=== PATIENT | male | born 1950 | race Caucasian/White ===

== ENCOUNTER → 2018-03-27 08:15 | Outpatient (CLI) | payer OTHER, SELFPAY ==
--- NOTE | 2018-03-27 08:15 | DT_ITS ---
This patient was seen during an EMR downtime March 26, 2018 - April 02, 2018. This patient may have a combination of paper and electronic documentation or all paper documentation. All documentation is viewable within the e-chart portion of [employer] for each patient visit.
[2018-04-02 10:17] LABS: Hematocrit 47.5 % (40-54); Hemoglobin 15.9 g/dl (13.0-16.5); Mean Corp Hgb Conc 33.5 g/gl (32-36); Mean Corpuscular Volume 95.6 fL (80-94); Red Blood Count 4.97 M/mm3 (4.6-6.2); White Blood Count 6.7 K/mm3 (4.4-11.0)
[2018-04-02 10:18] LABS: Absolute Lymphocyte Count 1.73 X10^3/ul (0.83-4.51); Absolute Neutrophil Count 3.9 X10^3/uL (2.0-7.7); Basophil# 0.07 X10^3/uL; Basophil% 1.1 % (0-1); Eosinophil# 0.17 X10^3/uL; Eosinophils% 2.6 % (0-5); Lymphocyte # 1.73 X10^3/ul (4.0); Mean Platelet Vol. 10.9 fl (6.2-12.0); Monocyte# 0.74 X10^3/uL; Monocyte% 11.1 % (0-10); Neutrophil # 3.91 X10^3/uL (2.7-7.7); Neutrophil % 58.6 % (47-70); POSITIVE COUNT NO; POSITIVE DIFFERENTIAL NO; POSITIVE MORPHOLOGY NO; Platelet Count 310 K/mm3 (150-450); RBC Distribution Width CV 11.8 % (11.6-14.6); RBC Distribution Width SD 40.6 fl (35.1-43.9)
[2018-04-02 10:19] LABS: BUN 10 mg/dL (7-18); Calcium,Total 8.5 mg/dL (8.5-10.1); Cholesterol 207 mg/dL (200); Creatinine, Serum 0.91 mg/dL (0.70-1.30); EST Glomerular Filtration Rate 88 mL/min (>60); Est Glom Filt Rate - Afr Amer 107 mL/min (>60); Glucose 94 mg/dL (74-106)
[2018-04-02 10:20] LABS: Anion Gap 8 (5-15); Chloride 109 mmol/L (98-107); High Density Lipoprotein 43 mg/dL; Potassium 3.7 mmol/L (3.5-5.1); Sodium Level 144 mmol/L (136-145); T4 Free Direct 0.86 ng/dL (0.76-1.46); Thyroid Stim Hormone (TSH) 1.77 uIU/mL (0.358-3.74); Triglycerides 167 mg/dL; Very Low Density Lipoprotein 33 mg/dL (5-40)
== END ==
PROVIDERS: Family Provider Family Medicine; PCP Family Medicine; Visit Provider Family Medicine
DX: I10 Essential (primary) hypertension (principal); E78.5 Hyperlipidemia, unspecified
CPT/HCPCS: 36415; 80048; 80061; 84439; 84443; 85025

== ENCOUNTER → 2019-08-01 | Outpatient (CLI) | payer MEDICARE, OTHER, SELFPAY ==
--- NOTE | 2019-08-01 16:48 | MRI_ITS ---
STUDY: MRI BRAIN WITH AND WITHOUT CONTRAST REASON FOR EXAM: Male, 68 years old. Double vision for 1 1/2 weeks TECHNIQUE: Standardized multiplanar fat and water weighted pulse sequences were obtained. IV Dotarem 15ML was administered for the contrast portion of the examination. COMPARISON: None. FINDINGS: Normal size of the ventricles and extra-axial spaces for the patient's age. Mild periventricular white matter ischemic changes without mass effect or restricted diffusion.. Chronic ischemic changes within the rom. Normal bilateral basal ganglia. Normal thalami. There is no extra-axial fluid accumulation. Normal flow voids within the major intracranial circulation suggesting patency by spin echo criteria. Normal venous enhancement. There is no enhancing intra-axial or extra-axial abnormality. Normal sella turcica, pituitary gland, infundibular stalk, optic chiasm and hypothalamus. Normal tectal plate and pineal gland. Normal midbrain, and medulla. Normal cerebellum. Normal basal cisterns. Normal bilateral temporal bones. Normal bilateral internal auditory canals. No demonstrated orbital abnormality, within the constraints of a routine brain study. Large mucous retention cyst in left maxillary sinus and mild mucosal thickening in the right maxillary as well as bilateral ethmoid air cells. Normal calvarium and skull base. Normal visualized soft tissue structures. Normal visualized upper cervical spine. MRI/Brain W/WO Contrast IMPRESSION: Mild periventricular white matter ischemic changes and chronic ischemic changes within the rom without evidence for acute infarct. . No abnormal enhancement following contrast injection Electronically Signed: Medardo Dumas MD at 18:29 EDT , Service support ,
[2019-08-01 17:15] LABS: CREATININE FINGERSTICK 0.9 mg/dL (0.70-1.30); EGFR FINGERSTICK > 60.0000 mL/min (>60)
== END | disposition home or self-care (01) ==
LOC: MRI 16:46
PROVIDERS: Family Provider Family Medicine; PCP Family Medicine; Referring Provider Ophthalmology; Visit Provider Ophthalmology
DX: H49.13 Fourth [trochlear] nerve palsy, bilateral (principal)
CPT/HCPCS: 70553; A9575

== ENCOUNTER 2020-12-16 09:00 | Outpatient (RCR) | payer MEDICARE, SELFPAY | END 2020-12-16 23:59 | LOC: IMMUN 09:00 | PROVIDERS: PCP Family Medicine; Visit Provider Family Medicine | DX: Z23 Encounter for immunization (principal) | CPT/HCPCS: 0011A; 0012A ==

== ENCOUNTER 2023-04-28 20:54 | Inpatient (IN) | payer MEDICARE, OTHER, SELFPAY ==
[2023-04-28 20:55] VITALS: BP 233/123; PULSE 96; RESP 18; TEMP 36.4; O2SAT 96; BMI 28.8
[2023-04-28 21:05] VITALS: BP 237/127; PULSE 100; RESP 22; O2SAT 95
--- NOTE | 2023-04-28 21:08 | EKG12_ITS ---
Test Reason : Blood Pressure : / mmHG Vent. Rate : 084 BPM Atrial Rate : 084 BPM P-R Int : 142 ms QRS Dur : 082 ms QT Int : 414 ms P-R-T Axes : 032 010 248 degrees QTc Int : 489 ms Normal sinus rhythm Nonspecific ST and T wave abnormality Prolonged QT Abnormal ECG Confirmed by GEORG[place] NUÑEZ, MELIA ([id number]), development editor ALEJANDRO LAIRD ([id number]) on 05/01/2023 1:19:15 PM Referred By: Confirmed By:REGINALD HO MD
--- NOTE | 2023-04-28 21:08 | CT_ITS ---
STUDY: CT BRAIN WITHOUT CONTRAST REASON FOR EXAM: Male, 72 years old. confusion, HTN RADIATION DOSAGE (If Supplied By Facility): CTDIvol = ( 44.99 ) mGy, DLP = ( 812.98 ) mGycm TECHNIQUE: Transaxial CT imaging of the brain was performed without administration of intravenous contrast material. Individualized dose optimization techniques were used for this CT. COMPARISON: No relevant priors. FINDINGS: Normal soft tissue structures. Normal calvarium. There is mild cerebral atrophy with widening of the extra-axial spaces and ventricular dilatation. There are areas of decreased attenuation within the white matter tracts of the supratentorial brain, consistent with microvascular disease changes. Normal basal ganglia and thalami. Normal brainstem. Normal cerebellum. There is no intracranial hemorrhage. There are no findings of an acute ischemic infarction. Normal visualized paranasal sinuses. CT/Brain/Head without Contrast IMPRESSION: Chronic involutional changes of the brain. Electronically Signed: Sha Mohamud MD at 21:58 EDT ,
--- NOTE | 2023-04-28 21:09 | EX.ED.DYSGE1 ---
HPI History of Present Illness Chief Complaint: Alt LOC Informant: patient Onset/Context/Timing Onset: Today Narrative Narrative: Patient states he woke this morning just not feeling right. He describes it as a generalized weakness feeling. It did not improve throughout the day. He has no focal weakness, pain, or paresthesias. This afternoon he states when he turns his head to his left sometimes he will see double. It does not happen every time. Patient states that he has no medical problems. He presents to triage with a blood pressure of 233/123. He states his blood pressure has not been checked in several years but had been told by doctors in the past it was slightly high in the 140 systolic range. PFSH PFSH Medical History no medical history no medical history Home Medications ascorbic acid (vitamin C) 250 mg tablet (Vitamin C) 04/28/23 [History Last Taken Unknown] Allergy/AdvReac Type Severity Reaction Status Date / Time No Known Allergies Allergy Verified 04/28/23 20:55 Social History Smoking Status: Current every day smoker tobacco type: cigarettes ROS ROS ED Constitutional Constitutional ED: Denies chills or fever(s) Eyes Eyes: Reports change in vision ENT ENT ED: Denies rhinorrhea or sore throat Cardiovascular Cardiovascular: Denies chest pain or palpitations Respiratory/Chest Respiratory/Chest: Denies cough or dyspnea Gastrointestinal Gastrointestinal: Denies abdominal pain, diarrhea, nausea or vomiting Musculoskeletal Musculoskeletal: Reports arthralgias; Denies back pain or neck pain Neurologic Neurologic: Reports weakness; Denies headache(s) or paresthesias Psychiatric Psychiatric: Denies anxiety or depression Allergic/Immunologic Allergic/Immunologic ED: Denies mouth swelling EXAM Physical Exam Const Vital Signs: 04/28/23 20:55 04/28/23 21:05 04/28/23 22:03 Temperature 97.6 F L Temperature Source Temporal Pulse Rate 96 100 81 Respiratory Rate 18 22 H 20 H Blood Pressure 233/123 H 237/127 H 199/107 H Blood Pressure Mean 159 163 137 Pulse Ox 96 95 95 Oxygen Delivery Method Room Air Room Air 04/28/23 22:56 Temperature Temperature Source Pulse Rate 76 Respiratory Rate 14 Blood Pressure 196/112 H Blood Pressure Mean 140 Pulse Ox 96 Oxygen Delivery Method Room Air Positive well nourished and well developed General Appearance ED: well developed HEENT Reports moist mucous membranes Eyes PERRL and EOMs intact bilaterally Neck no lymphadenopathy Chest Wall inspection of chest normal and palpation of chest normal Resp normal respiratory effort and clear to auscultation bilaterally Cardio regular rate and regular rhythm GI normal to inspection, nondistended, normoactive bowel sounds Extremity normal to inspection Neuro oriented x3 and no sensory deficits noted Neuro Narrative: NIH equals 0 at time of my exam. Motor Exam: strength 5/5 throughout Psych mental status grossly normal Skin no rashes or lesions noted MDM MDM MDM Narrative Medical decision making narrative: Patient placed on satellite project site monitor. EKG obtained to evaluate for cardiac arrhythmia/ischemia. Chest x-ray obtained to evaluate for acute lung pathology, cardiac size, or mediastinal abnormality. Labwork obtained to evaluate for leukocytosis, anemia, and electrolyte derangement. CT scan of the head obtained given not feeling normal with significantly elevated blood pressure. Urinalysis obtained to evaluate for infection/hematuria. Given the patient's significant hypertension he was given 10 mg of IV labetalol. Lab Data Attestation: I reviewed the patient's lab results. Labs: Laboratory Results - last 24 hr 04/28/23 04/28/23 21:15 22:15 WBC 7.4 RBC 4.98 Hgb 16.1 Hct 46.4 MCV 93.2 MCH 32.3 H MCHC 34.7 RDW Std Deviation 38.5 RDW Coeff of Traci 11.4 L Plt Count 285 MPV 10.9 Immature Gran % (Auto) 0.500 Neut % (Auto) 61.2 Lymph % (Auto) 26.5 [place] % (Auto) 8.1 Eos % (Auto) 2.6 Baso % (Auto) 1.1 H Absolute Neuts (auto) 4.6 Absolute Lymphs (auto) 1.97 Nucleated RBC % 0 Sodium 141 Potassium 3.6 Chloride 108 H Carbon Dioxide 26.0 Anion Gap 7 BUN 13 Creatinine 1.33 H Estim Creat Clear Calc 47.86 Est GFR (MDRD) Af Amer 68 Est GFR (MDRD) Non-Af 56 L BUN/Creatinine Ratio 9.8 L Glucose 139 H Calcium 8.8 Total Bilirubin 0.40 Direct Bilirubin 0.13 AST 18 ALT 28 Alkaline Phosphatase 89 Troponin I High Sens 29 Total Protein 7.3 Albumin 3.7 Globulin 3.6 Urine Color YELLOW Urine Clarity Sl Cldy Urine pH 6.0 Ur Specific [place] 1.020 Urine Protein 15 H Urine Glucose (UA) Normal Urine Ketones Negative Urine Occult Blood Negative Urine Nitrite Negative Urine Bilirubin Negative Urine Urobilinogen Normal Ur Leukocyte Esterase 100 H Urine RBC 0 SEEN Urine WBC 5-10 SEEN Ur Squamous Epith Cells 0-5 SEEN Urine Bacteria 0 SEEN Urine Mucus 0 SEEN Urine Opiates Screen NEGATIVE Urine Methadone Screen NEGATIVE Ur Barbiturates Screen NEGATIVE Ur Phencyclidine Scrn NEGATIVE Ur Amphetamines Screen NEGATIVE MDMA (Ecstasy) Screen NEGATIVE U Benzodiazepines Scrn NEGATIVE Urine Cocaine Screen NEGATIVE U Cannabinoids Screen NEGATIVE Ur Drug Screen Comment Ethyl Alcohol < 3.0 Radiography Chest X-Ray - ED: 1 View, Read by ED Physician, Normal, Heart, Lungs and Mediastinum Diagnostic Testing: Clinical Impression(s) from Imaging Studies Brain CT 04/28/23 21:08 IMPRESSION: Chronic involutional changes of the brain. Electronically Signed: Sha Mohamud MD at 21:58 EDT Reading Location ID and State: [id number] / [place] [address] , Service support , Chest X-Ray 04/28/23 21:32 IMPRESSION: Normal x-ray examination of the chest. Electronically Signed: Sha Mohamud MD at 22:14 EDT Reading Location ID and State: [id number] / [place] [address] , Service support , EKG Initial EKG: Attestation: I personally reviewed and interpreted this EKG as follows: Interpretation: Sinus Rhythm (Sinus at 84 with no acute ischemia. QTc is 489.) Treatment and Re-Evaluation :: After 10 mg of IV labetalol systolic blood pressure has gone from 233 to 199. CBC was normal white count at 7.4 with a hemoglobin of 16.1. Chemistry studies reveal a BUN of 13 and a creatinine of 1.33. Do not have prior values available for comparison. LFTs are unremarkable. EtOH is less than 3. EKG per mitral rotation reveals no acute ischemia. Chest x-ray per my interpretation is normal. Radiology interpretation is reviewed and agrees. CT scan of the head reveals chronic involutional changes with no acute findings. Urinalysis does reveal 15 protein. Patient has been ordered an additional 10 mg of IV labetalol. I will discuss case with hospitalist regarding admission for hypertensive urgency. Discharge Plan Dx/Rx/DC Orders Clinical Impression: Hypertensive urgency Disposition Disposition: Acute Care Hospital [facility]
[2023-04-28] MEDS: Labetalol (Prefilled) 20 MG/4 ML 10 MG IV ×2 (21:15→22:34)
--- NOTE | 2023-04-28 21:32 | RAD_ITS ---
STUDY: X-RAY CHEST REASON FOR EXAM: Male, 72 years old. cp TECHNIQUE: Single AP portable view of the chest. COMPARISON: None. FINDINGS: The lungs are clear and expanded. There is no demonstrated pleural abnormality. Normal size heart. Normal mediastinum and segun. Normal visualized pulmonary arteries. Normal visualized aortic arch and descending thoracic aorta. Normal visualized thoracic spine. Normal visualized ribs, clavicles, and shoulders. There is no demonstrated abnormality of the visualized soft tissue structures of the upper abdomen. RAD/Chest 1 View (Portable) IMPRESSION: Normal x-ray examination of the chest. Electronically Signed: Sha Mohamud MD at 22:14 EDT ,
[2023-04-28 21:34] LABS: Absolute Lymphocyte Count 1.97 X10^3/uL (0.83-4.51); Absolute Neutrophil Count 4.6 X10^3/uL (2.0-7.7); Basophil# 0.08 X10^3/uL; Basophil% 1.1 % (0-1); Eosinophil# 0.19 X10^3/uL; Eosinophils% 2.6 % (0-5); Hematocrit 46.4 % (40-54); Hemoglobin 16.1 g/dL (13.0-16.5); Lymphocyte # 1.97 X10^3/ul (0.83-4.51); Lymphocyte % 26.5 % (19-41); Mean Corp Hgb Conc 34.7 g/dL (32-36); Mean Corpuscular Hgb 32.3 pg (27.0-32.0); Mean Corpuscular Volume 93.2 fL (80-94); Mean Platelet Vol. 10.9 fl (6.2-12.0); Monocyte% 8.1 % (0-10); NRBC Flagged by Analyzer 0 % (0-5); Neutrophil # 4.55 X10^3/uL (2.7-7.7); Neutrophil % 61.2 % (47-70); Platelet Count 285 K/mm3 (150-450); RBC Distribution Width CV 11.4 % (11.6-14.6); RBC Distribution Width SD 38.5 fl (35.1-43.9); Red Blood Count 4.98 M/mm3 (4.6-6.2); White Blood Count 7.4 K/mm3 (4.4-11.0)
[2023-04-28 21:44] LABS: AST(SGOT) 18 U/L (15-37); Alanine Aminotransfer ALT/SGPT 28 U/L (16-61); Albumin, Serum 3.7 g/dL (3.2-5.0); Alkaline Phosphatase 89 U/L (45-117); Anion Gap 7 (5-15); BUN 13 mg/dL (7-18); BUN/Creat Ratio 9.8 RATIO (10-20); Bilirubin, Direct 0.13 mg/dL (0.00-0.30); Calcium,Total 8.8 mg/dL (8.5-10.1); Chloride 108 mmol/L (98-107); Creatinine, Serum 1.33 mg/dL (0.70-1.30); EST Glomerular Filtration Rate 56 mL/min (>60); Est Glom Filt Rate - Afr Amer 68 mL/min (>60); Estimated Creatinine Clearance 47.86 ml/min; Globulin 3.6 g/dL (2.2-4.2); Glucose 139 mg/dL (74-106); Potassium 3.6 mmol/L (3.5-5.1); Protein, Total 7.3 g/dL (6.4-8.2); Sodium Level 141 mmol/L (136-145); Troponin-I HS 29 pg/mL (3.0-78.0)
[2023-04-28 22:03] VITALS: BP 199/107; PULSE 81; RESP 20; O2SAT 95
[2023-04-28 22:19] LABS: Alcohol, Blood (Medical)-Serum < 3.0 mg/dL
[2023-04-28 22:21] LABS: Bacteria 0 SEEN /hpf (None Seen); Mucous, Urine 0 SEEN /hpf (<or=2+); Red Blood Cells-Urine 0 SEEN /hpf (0-5)
[2023-04-28 22:40] LABS: Amphetamine Urine VISTA NEGATIVE (<1000 ng/mL); Barbiturate Urine VISTA NEGATIVE (< 200 ng/mL); Benzodiazepine Urine VISTA NEGATIVE (< 200 ng/mL); Cocaine Urine VISTA NEGATIVE (< 300 ng/mL); Ecstacy Urine VISTA NEGATIVE (< 500 ng/mL); Methadone Urine VISTA NEGATIVE (< 300 ng/mL); PCP Urine VISTA NEGATIVE (< 25 ng/mL); THC Urine VISTA NEGATIVE (< 50 ng/mL); Vista UDS pH Range 6
[2023-04-28 22:53] LABS: Color, Urine YELLOW (Yellow); Glucose, Dipstick Normal (Normal); Ketone-Dipstick Negative (Negative); Urine Bilirubin Dipstick Negative (Negative); Urine Clarity Sl Cldy (Clear)
[2023-04-28 22:54] LABS: Leukocyte Esterase-Dipstick 100 /ul (Negative); Nitrite-Dipstick Negative (Negative); Occult Blood-Urine Negative /ul (Negative); Protein-Dipstick 15 mg/dl (Negative); Squamous Epithelial Cells - UA 0-5 SEEN /hpf (0-5); Urine Urobilinogen Normal (Normal); White Blood Cells 5-10 SEEN /hpf (0-5)
[2023-04-28 22:56] VITALS: BP 196/112; PULSE 76; RESP 14; O2SAT 96
--- NOTE | 2023-04-28 23:05 | PCM.HP.STD ---
HPI - General General Date of Admission: 04/28/23 Date of Service: 04/28/23 Chief Complaint: Malaise HPI Narrative HONORIO BARKLEY, is a 72 M who does not see a doctor presents emergency department with malaise. Also he feels rundown. Reportedly he had difficulty in comprehension. And when he looks at his left side he has new onset blurry vision. At the emergency department his blood pressure was found to be severely high and he received 2 doses of labetalol IV. His blood pressure continued to remain high. Reportedly in the past he was told that his blood pressure was slightly above normal. [facility] Medical History no medical history no medical history Home Medications ascorbic acid (vitamin C) 250 mg tablet (Vitamin C) 04/28/23 [History Last Taken Unknown] Allergy/AdvReac Type Severity Reaction Status Date / Time No Known Allergies Allergy Verified 04/28/23 20:55 Family History Other Cancer Surgical History Hx of cholecystectomy Social History Smoking Status: Current every day smoker tobacco type: cigarettes ROS ROS Narrative Pertinent positives and pertinent negatives as noted in HPI. All other systems were reviewed and are negative Vital Signs Vital Signs Vital Signs: 04/28/23 20:55 04/28/23 21:05 04/28/23 22:03 Temperature 97.6 F L Temperature Source Temporal Pulse Rate 96 100 81 Respiratory Rate 18 22 H 20 H Blood Pressure 233/123 H 237/127 H 199/107 H Blood Pressure Mean 159 163 137 Pulse Ox 96 95 95 Oxygen Delivery Method Room Air Room Air 04/28/23 22:56 Temperature Temperature Source Pulse Rate 76 Respiratory Rate 14 Blood Pressure 196/112 H Blood Pressure Mean 140 Pulse Ox 96 Oxygen Delivery Method Room Air Weight Weight: 86.137 kg Body Mass Index (BMI) 28.8 Physical Exam Narrative Physical exam: General: Well-nourished, well-developed. Head: Normocephalic, atraumatic, no tenderness Eyes: Vision is grossly intact. EOMI ENT, no trauma, moist mucous membranes, no rhinorrhea Neck: Nontender, No thyromegaly. CVS: Regular rate and rhythm. S1-S2 present. No murmur, gallop or rub. Respiratory : clear to auscultation bilaterally, chest wall nontender Abdomen: Soft, nontender, nondistended, normal bowel sounds, no masses : Deferred Back: Nontender, no CVA tenderness, no midline spinal tenderness, deformities, step-offs Extremities: Nontender full range of motion, no trauma Skin: Normal color, no trauma, abrasions Neuro: Alert, oriented, cranial nerves II through XII grossly intact. Psychiatry: Normal mood. Normal affect. Not depressed. Not anxious. Results Lab / Micro Data 04/28/23 21:15 04/28/23 21:15 Labs: Laboratory Results - last 24 hr 04/28/23 21:15: WBC 7.4, RBC 4.98, Hgb 16.1, Hct 46.4, MCV 93.2, MCH 32.3 H, MCHC 34.7, RDW Std Deviation 38.5, RDW Coeff of Traci 11.4 L, Plt Count 285, MPV 10.9, Immature Gran % (Auto) 0.500, Neut % (Auto) 61.2, Lymph % (Auto) 26.5, [place] % (Auto) 8.1, Eos % (Auto) 2.6, Baso % (Auto) 1.1 H, Absolute Neuts (auto) 4.6, Absolute Lymphs (auto) 1.97, Nucleated RBC % 0, Sodium 141, Potassium 3.6, Chloride 108 H, Carbon Dioxide 26.0, Anion Gap 7, BUN 13, Creatinine 1.33 H, Estim Creat Clear Calc 47.86, Est GFR (MDRD) Af Amer 68, Est GFR (MDRD) Non-Af 56 L, BUN/Creatinine Ratio 9.8 L, Glucose 139 H, Calcium 8.8, Total Bilirubin 0.40, Direct Bilirubin 0.13, AST 18, ALT 28, Alkaline Phosphatase 89, Troponin I High Sens 29, Total Protein 7.3, Albumin 3.7, Globulin 3.6, Ethyl Alcohol < 3.0 04/28/23 22:15: Urine Color YELLOW, Urine Clarity Sl Cldy, Urine pH 6.0, Ur Specific [place] 1.020, Urine Protein 15 H, Urine Glucose (UA) Normal, Urine Ketones Negative, Urine Occult Blood Negative, Urine Nitrite Negative, Urine Bilirubin Negative, Urine Urobilinogen Normal, Ur Leukocyte Esterase 100 H, Urine RBC 0 SEEN, Urine WBC 5-10 SEEN, Ur Squamous Epith Cells 0-5 SEEN, Urine Bacteria 0 SEEN, Urine Mucus 0 SEEN, Urine Opiates Screen NEGATIVE, Urine Methadone Screen NEGATIVE, Ur Barbiturates Screen NEGATIVE, Ur Phencyclidine Scrn NEGATIVE, Ur Amphetamines Screen NEGATIVE, MDMA (Ecstasy) Screen NEGATIVE, U Benzodiazepines Scrn NEGATIVE, Urine Cocaine Screen NEGATIVE, U Cannabinoids Screen NEGATIVE, Ur Drug Screen Comment Radiology Impression Brain CT 04/28/23 21:08 IMPRESSION: Chronic involutional changes of the brain. Electronically Signed: Sha Mohamud MD at 21:58 EDT , Chest X-Ray 04/28/23 21:32 IMPRESSION: Normal x-ray examination of the chest. Electronically Signed: Sha Mohamud MD at 22:14 EDT , Assessment & Plan Assessment/Plan (1) Hypertensive emergency: PLAN: Plan Hypertensive emergency With patient not been able to comprehend and with some blurry vision in the setting of elevated blood pressure with systolic of more than 180 with diagnosis of hypertensive emergency. EKG showed tall QRS which does not meet criteria of LVH. Time spent in the patient's overall evaluation,decision-making process, review of diagnostic data, adjustment of management, discussion with other providers, nursing nursing and ancillary staff involved in patient's care documentation, 42 minutes. Charges/Coding Visit Charges Inpatient E&M: 20532 Init Hosp L2
--- NOTE | 2023-04-28 23:58 | ED.RN ---
2356: Report called to Babs SHARP on ICU.
[2023-04-29] VITALS (30 sets, daily range): BP systolic 137–205; BP diastolic 67–111; PULSE 66–86; RESP 14–23; TEMP 36.2–36.7; O2SAT 92–98; BMI 28.9
[2023-04-29] MEDS: amLODIPine 10 MG Tablet PO (03:34)
[2023-04-29 03:53] LABS: Absolute Lymphocyte Count 2.45 X10^3/uL (0.83-4.51); Absolute Neutrophil Count 4.5 X10^3/uL (2.0-7.7); Basophil# 0.06 X10^3/uL; Basophil% 0.8 % (0-1); Eosinophil# 0.29 X10^3/uL; Eosinophils% 3.6 % (0-5); Hematocrit 44.6 % (40-54); Hemoglobin 15.3 g/dL (13.0-16.5); Lymphocyte # 2.45 X10^3/ul (0.83-4.51); Lymphocyte % 30.7 % (19-41); Mean Corp Hgb Conc 34.3 g/dL (32-36); Mean Corpuscular Hgb 32.6 pg (27.0-32.0); Mean Corpuscular Volume 94.9 fL (80-94); Mean Platelet Vol. 10.8 fl (6.2-12.0); Monocyte# 0.64 X10^3/uL; NRBC Flagged by Analyzer 0 % (0-5); Neutrophil % 56.5 % (47-70); Platelet Count 255 K/mm3 (150-450); RBC Distribution Width CV 11.4 % (11.6-14.6); RBC Distribution Width SD 39.9 fl (35.1-43.9)
[2023-04-29 04:07] LABS: Anion Gap 7 (5-15); BUN 13 mg/dL (7-18); Calcium,Total 8.2 mg/dL (8.5-10.1); Chloride 109 mmol/L (98-107); Creatinine, Serum 1.18 mg/dL (0.70-1.30); EST Glomerular Filtration Rate 64 mL/min (>60); Est Glom Filt Rate - Afr Amer 78 mL/min (>60); Estimated Creatinine Clearance 53.94 ml/min; Glucose 121 mg/dL (74-106); Potassium 3.4 mmol/L (3.5-5.1); Sodium Level 143 mmol/L (136-145)
--- NOTE | 2023-04-29 07:31 | PCM.PN.HOSP ---
Reason for Visit Reason for Visit: Diagnoses Hypertensive emergency (04/28/23) Objective Data Objective Data Vital Signs: Vital Signs Temp Pulse Resp BP Pulse Ox O2 Del Method 97.5 F L 67 16 152/85 H 93 Room Air 04/29/23 04:00 04/29/23 07:00 04/29/23 07:00 04/29/23 07:00 04/29/23 07:00 04/29/23 07:00 Oxygen Delivery Method Room Air Weight: 190 lb 14.725 oz Body Mass Index (BMI) 28.9 Intake & Output: Intake and Output for Last 24 Hours 04/27/23 04/28/23 04/29/23 23:59 23:59 23:59 Intake Total 100.00 / 100.00 Output Total 0 / 0 Balance 100.00 / 100.00 Lab / Micro Data 04/29/23 03:35 04/29/23 03:35 Labs: Laboratory Results - last 24 hr 04/28/23 21:15: WBC 7.4, RBC 4.98, Hgb 16.1, Hct 46.4, MCV 93.2, MCH 32.3 H, MCHC 34.7, RDW Std Deviation 38.5, RDW Coeff of Traci 11.4 L, Plt Count 285, MPV 10.9, Immature Gran % (Auto) 0.500, Neut % (Auto) 61.2, Lymph % (Auto) 26.5, [place] % (Auto) 8.1, Eos % (Auto) 2.6, Baso % (Auto) 1.1 H, Absolute Neuts (auto) 4.6, Absolute Lymphs (auto) 1.97, Nucleated RBC % 0, Sodium 141, Potassium 3.6, Chloride 108 H, Carbon Dioxide 26.0, Anion Gap 7, BUN 13, Creatinine 1.33 H, Estim Creat Clear Calc 47.86, Est GFR (MDRD) Af Amer 68, Est GFR (MDRD) Non-Af 56 L, BUN/Creatinine Ratio 9.8 L, Glucose 139 H, Calcium 8.8, Total Bilirubin 0.40, Direct Bilirubin 0.13, AST 18, ALT 28, Alkaline Phosphatase 89, Troponin I High Sens 29, Total Protein 7.3, Albumin 3.7, Globulin 3.6, Ethyl Alcohol < 3.0 04/28/23 22:15: Urine Color YELLOW, Urine Clarity Sl Cldy, Urine pH 6.0, Ur Specific [place] 1.020, Urine Protein 15 H, Urine Glucose (UA) Normal, Urine Ketones Negative, Urine Occult Blood Negative, Urine Nitrite Negative, Urine Bilirubin Negative, Urine Urobilinogen Normal, Ur Leukocyte Esterase 100 H, Urine RBC 0 SEEN, Urine WBC 5-10 SEEN, Ur Squamous Epith Cells 0-5 SEEN, Urine Bacteria 0 SEEN, Urine Mucus 0 SEEN, Urine Opiates Screen NEGATIVE, Urine Methadone Screen NEGATIVE, Ur Barbiturates Screen NEGATIVE, Ur Phencyclidine Scrn NEGATIVE, Ur Amphetamines Screen NEGATIVE, MDMA (Ecstasy) Screen NEGATIVE, U Benzodiazepines Scrn NEGATIVE, Urine Cocaine Screen NEGATIVE, U Cannabinoids Screen NEGATIVE, Ur Drug Screen Comment 04/29/23 03:35: WBC 8.0, RBC 4.70, Hgb 15.3, Hct 44.6, MCV 94.9 H, MCH 32.6 H, MCHC 34.3, RDW Std Deviation 39.9, RDW Coeff of Traci 11.4 L, Plt Count 255, MPV 10.8, Immature Gran % (Auto) 0.400, Neut % (Auto) 56.5, Lymph % (Auto) 30.7, [place] % (Auto) 8.0, Eos % (Auto) 3.6, Baso % (Auto) 0.8, Absolute Neuts (auto) 4.5, Absolute Lymphs (auto) 2.45, Nucleated RBC % 0, Sodium 143, Potassium 3.4 L, Chloride 109 H, Carbon Dioxide 27.0, Anion Gap 7, BUN 13, Creatinine 1.18, Estim Creat Clear Calc 53.94, Est GFR (MDRD) Af Amer 78, Est GFR (MDRD) Non-Af 64, BUN/Creatinine Ratio 11.0, Glucose 121 H, Calcium 8.2 L Radiography Diagnostic Testing: Radiology Impression Brain CT 04/28/23 21:08 IMPRESSION: Chronic involutional changes of the brain. Electronically Signed: Sha Mohamud MD at 21:58 EDT , Chest X-Ray 04/28/23 21:32 IMPRESSION: Normal x-ray examination of the chest. Electronically Signed: Sha Mohamud MD at 22:14 EDT , Physical Exam Narrative Patient still feeling dizzy on sitting and standing up. No headache. Had blurry vision which resolved. Physical exam: General: Alert, Oriented x3, Cooperative HEENT: Atraumatic, PERRLA, EOMI, Normocephalic Oral: No Gingival or Mucosal Lesions/ Ulcerations Neck: Supple, No JVD, Negative Carotid Bruits Lungs: Air entry diminished in bilateral lung bases. No crepitation/rhonchi Cardiovascular: Regular rate, Regular Rhythm, Normal S1, S2, No murmurs Abdomen: Bowel Sounds Present, Soft, Non Tender, Non-Distended : No renal angle tenderness. No suprapubic tenderness. Extremities: No edema, Capillary Refill Less than 3 Seconds Skin: No rashes, No breakdown Musculoskeletal: No Tenderness to Palpation of Joints or Extremities Neurological: Cranial nerves II-XII grossly intact, DTR 2+/4. NIH stroke scale 0. Psych/Mental Status: Normal Affect, Appropriate. Assessment & Plan Assessment/Plan (1) Hypertensive emergency: PLAN: Plan 72-year-old female was admitted with malaise, fatigue, difficulty in comprehension, new onset blurry vision on looking left side. BP was found very high, 233/123, 237/127 and had 2 doses of labetalol IV. Hypertensive emergency With patient not been able to comprehend and with some blurry vision in the setting of elevated blood pressure with systolic of more than 180 with diagnosis of hypertensive emergency. EKG showed tall QRS which does not meet criteria of LVH. Patient was nicardipine drip. 2D echo is ordered. Recommended MRI brain which is not emergent and can be done as an outpatient. Patient had blurry vision, difficulty in comprehension. Does not have history of a stroke or MA. Mild hypokalemia, Potassium replaced. DVT prophylaxis on Lovenox. Sodium 143, Potassium 3.4 L, Chloride 109 H, Carbon Dioxide 27.0, Anion Gap 7, BUN 13, Creatinine 1.18, Estim Creat Clear Calc 53.94, Est GFR (MDRD) Af Amer 78, Est GFR (MDRD) Non-Af 64, BUN/Creatinine Ratio 11.0, Glucose 121 H, Calcium 8.2 L Charges/Coding Visit Charges Inpatient E&M: 93668 Subs Hosp L3
[2023-04-29] MEDS: Potassium Chloride Oral Tablet 20 MEQ 40 MEQ PO (09:26)
[2023-04-29] MEDS: Enoxaparin 40 MG/0.4 ML Syringe SC (09:28)
--- NOTE | 2023-04-29 09:57 | ECHOD_ITS ---
Reason For Study: HTN Procedure This was a 2D Doppler, Color Flow transthoracic echocardiogram. Myocardial strain analysis was performed in this exam to aid in the assessment of cardiac function. Exam performed portable in ICU/CCU. Left Ventricle Normal LV size. The estimated ejection fraction is 65 %. No evidence for diastolic dysfunction. No regional wall motion abnormalities noted. Right Ventricle Normal RV size. Normal systolic function. Atria Normal left atrium. Normal right atrium. No doppler evidence for ASD. Mitral Valve There is no mitral valve stenosis. Trivial mitral valve insufficiency. Tricuspid Valve There is no tricuspid stenosis. Unable to estimate RV systolic pressure due to insufficient tricuspid regurgitant envelope. Trivial tricuspid valve insufficiency. Aortic Valve Trisinus/trileaflet aortic valve. Aortic sclerosis, no stenosis. There is no aortic stenosis. No aortic valve insufficiency. Pulmonic Valve There is no pulmonic valvular stenosis. No pulmonic valve insufficiency. Great Vessels Normal aortic root. Pericardium/Pleural No pericardial effusion. MMode/2D Measurements & Calculations LVIDd: 4.4 cm IVSd: 1.6 cm Ao root diam: 3.1 cm LVIDs: 3.5 cm LVPWd: 1.7 cm RVDd: 2.6 cm FS: 19.9 % LAV(MOD-bp): 35.1 ml LVAd ap4: 26.0 cm2 SV(MOD-sp4): 38.0 ml LAV(MOD-bp) Indexed: 18.0 ml/m2 LVLd ap4: 8.1 cm LAV(MOD-sp2): 42.8 ml EDV(MOD-sp4): 69.3 ml LAV(MOD-sp4): 27.3 ml EDV(sp4-el): 70.5 ml LVAs ap4: 15.9 cm2 LVLs ap4: 7.6 cm ESV(MOD-sp4): 31.3 ml ESV(sp4-el): 28.3 ml EF(MOD-sp4): 54.8 % EF(sp4-el): 59.8 % SV(sp4-el): 42.2 ml LA A4 area: 14.3 cm2 LA dimension(2D): 4.4 cm RA A4 area: 12.1 cm2 TAPSE: 2.3 cm Time Measurements MV dec time: 0.37 sec Doppler Measurements & Calculations MV E max yann: 60.1 cm/sec Lat Peak E' Yann: 6.1 cm/sec Med Peak E' Yann: 4.0 cm/sec MV A max yann: 85.7 cm/sec E/E' lat: 9.9 E/E' med: 15.0 MV E/A: 0.70 Ao V2 max: 141.6 cm/sec LV V1 max: 101.6 cm/sec MV dec slope: 164.5 cm/sec2 Ao max P.0 mmHg LV V1 max P.1 mmHg Ao V2 mean: 98.8 cm/sec LV V1 mean P.3 mmHg Ao mean P.5 mmHg LV V1 mean: 70.1 cm/sec Ao V2 VTI: 28.0 cm LV V1 VTI: 20.1 cm AV (velocity ratio): 0.72 PA V2 max: 103.6 cm/sec ECHO/Echo Complete Interpretation Summary The estimated ejection fraction is 65 %. No evidence for diastolic dysfunction. Trivial mitral valve insufficiency. Aortic sclerosis, no stenosis. Ordering Physician: Adebayo Sanchez Performed By: Elvira Morley, JACLYN, RVT
[2023-04-29] MEDS: Lisinopril 10 MG Tablet PO (14:09)
[2023-04-29] MEDS: hydroCHLOROthiazide 12.5mg 12.5 MG PO (17:39)
--- NOTE | 2023-04-29 17:45 | CASEMGMT ---
ARON AWAD MACHINE SH[employer] HELPER CM to room to meet with patient for initial transition planning/care coordination assessment. ARON AWAD introduced self and role at [facility].? Pt voices understanding and consents to assessment at this time.? Pt resting in bed in no distress at this time.? Pt is A/O at this time and answers all questions appropriately.?? Care providers, pharmacy, and demographics verified/updated at this time. PCP: Dr Dickerson @ [facility]. Has upcoming appt May 23 Specialists: none Preferred Pharmacy: [facility] Insurance: MCR, MMO Prescription Benefit:? Pt does not think he has any Rx benefits. Living Will/HPOA:? Has LW and HCPOA, who is his sister, Pratibha LNOK: Sister/POAPratibha Living Arrangements: Lives alone in one-story condo w/1 step to enter. Independent w/ADL's and IADL's. Transportation: Pt states drives self and states no transportation concerns at this time.? DME: ? Denies using any DME and denies needs.? HHC/SNF: No hx of either, denies needs, and no needs identified. Pt wishes to return home and states has no concerns with going home at time of discharge.? CM to follow for any discharge planning/needs.? Pt voices no concerns/needs at this time.? Advised pt to ask for CM if any questions/concerns/needs arise.? Voices understanding. PLAN: ?Home Art FLANNERY RN, CM
[2023-04-29] MEDS: 0.9% Saline Lock 10 ML Syringe IV (21:30)
[2023-04-29] MEDS: Labetalol (Prefilled) 20 MG/4 ML IV (21:31)
[2023-04-29] MEDS: Calcium Carbonate 500 MG Tablet PO (22:26)
[2023-04-30 03:30] VITALS: BP 187/99; PULSE 76; RESP 16; TEMP 36.8; O2SAT 96
[2023-04-30 03:53] VITALS: BMI 28.5
[2023-04-30 05:30] VITALS: BP 167/101; PULSE 68; RESP 16; TEMP 36.9; O2SAT 98
[2023-04-30 07:26] LABS: Anion Gap 5 (5-15); BUN 14 mg/dL (7-18); BUN/Creat Ratio 10.4 RATIO (10-20); Chloride 109 mmol/L (98-107); Creatinine, Serum 1.35 mg/dL (0.70-1.30); EST Glomerular Filtration Rate 55 mL/min (>60); Est Glom Filt Rate - Afr Amer 67 mL/min (>60); Estimated Creatinine Clearance 47.15 ml/min; Glucose 100 mg/dL (74-106); Magnesium 2.4 mg/dL (1.6-2.6); Potassium 3.5 mmol/L (3.5-5.1); Sodium Level 139 mmol/L (136-145)
--- NOTE | 2023-04-30 08:03 | DCINST_ITS ---
Discharge Instructions Follow Up Care Test Results: Test results from this visit will be discussed in further detail at your follow- up appointment, if applicable. Discharge Plan Admission Admit Date/Time: 04/28/23 23:08 Primary Reason for Your Visit: Hypertension emergency Attending Provider: Adebayo Sanchez Primary Care Provider: Janell Dickerson Consulting Providers: Giovanny Ross Discharge Orders/Prescriptions Prescriptions: New lisinopril 20 mg Tablet 20 mg PO BID 30 Days Qty: 60 2RF potassium chloride [Klor-Con M20] 20 mEq Tablet,Er Particles/Crystals 20 meq PO DAILYCM 30 Days Qty: 30 0RF amlodipine 10 mg Tablet 10 mg PO DAILY 30 Days Qty: 30 2RF nicotine 21 mg/24 hr Patch 24 Hour 21 mg transdermal DAILY 30 Days Qty: 30 0RF hydrochlorothiazide 25 mg Tablet 25 mg PO DAILY 30 Days Qty: 30 2RF Continued ascorbic acid (vitamin C) [Vitamin C] 250 mg tablet Referrals / Follow Up: Janell Dickerson MD [Primary Care Provider] - Within 1 Week Sen Baker MD [Non-Staff] - Disposition Disposition (needs filled in before D/C Order can be placed): Home, Self Care
[2023-04-30 08:54] VITALS: BP 186/100; PULSE 74; RESP 14; TEMP 36.7; O2SAT 94
[2023-04-30] MEDS: hydroCHLOROthiazide 25 MG Tablet PO (08:58)
[2023-04-30] MEDS: Lisinopril 20 MG Tablet PO (08:58)
[2023-04-30] MEDS: Potassium Chloride Oral Tablet 20 MEQ 40 MEQ PO (08:59)
[2023-04-30] MEDS: amLODIPine 10 MG Tablet PO (09:00)
[2023-04-30] MEDS: Enoxaparin 40 MG/0.4 ML Syringe SC (09:00)
[2023-04-30 09:18] VITALS: BP 183/89; PULSE 75; RESP 16; TEMP 36.7; O2SAT 95
--- NOTE | 2023-04-30 09:18 | PCM.DC.SUM ---
Providers Date of Admission: 04/28/23 Primary Care Physician: Dr. Janell Dickerson MD Reason For Visit: HYPERTENSIVE URGENCY Diagnosis Discharge Diagnosis (1) Hypertensive emergency: Status: Acute Code(s): I16.1 - Hypertensive emergency Plan 72-year-old female was admitted with malaise, fatigue, difficulty in comprehension, new onset blurry vision on looking left side. BP was found very high, 233/123, 237/127 and had 2 doses of labetalol IV. Hypertensive emergency With patient not been able to comprehend and with some blurry vision in the setting of elevated blood pressure with systolic of more than 180 with diagnosis of hypertensive emergency. EKG showed tall QRS which does not meet criteria of LVH. Patient was nicardipine drip. 04/30: Echo was done reported EF 65% with no evidence of diastolic dysfunction. No RWMA. Trivial mitral insufficiency. No aortic stenosis. Recommended MRI brain which is not emergent and can be done as an outpatient. Patient had blurry vision, difficulty in comprehension. Does not have history of a stroke or CT. Patient on 3 maximum dose of antihypertensive medications HCTZ, lisinopril and amlodipine. Patient blood pressure is still high even on 3 antihypertensive medications therefore hydralazine 50 mg 3 times daily added. Prescription of all antihypertensive medications given. Mild hypokalemia, Potassium replaced. DVT prophylaxis on Lovenox. Prescriptions for lisinopril 20 mg twice daily, HCTZ 25 mg daily, amlodipine 10 mg daily, hydralazine and potassium supplement given. Advised home BP monitoring daily before breakfast and follow with PCP in 1 week. Discharge medication reconciliation done. Discharge follow-up instructions completed. Discharge process discussed with the patient and all questions were answered to patient's satisfaction. Total time spent, exact 35 minutes on discharge meds reconciliation, examination, coordination of care with nurses and ancillary staff, review of imaging and blood test and discussion with the patient on follow-up instructions. Laboratory Results 04/30/23 06:05: Sodium 139, Potassium 3.5, Chloride 109 H, Carbon Dioxide 25.0, Anion Gap 5, BUN 14, Creatinine 1.35 H, Estim Creat Clear Calc 47.15, Est GFR (MDRD) Af Amer 67, Est GFR (MDRD) Non-Af 55 L, BUN/Creatinine Ratio 10.4, Glucose 100, Calcium 9.0, Phosphorus 3.0, Magnesium 2.4 Medications at Discharge Home Medications ascorbic acid (vitamin C) 250 mg tablet (Vitamin C) 04/28/23 amlodipine 10 mg tablet 10 mg PO DAILY 30 days #30 tabs 04/30/23 hydralazine 50 mg tablet 50 mg PO TID 30 days #90 tabs 04/30/23 hydrochlorothiazide 25 mg tablet 25 mg PO DAILY 30 days #30 tabs 04/30/23 lisinopril 20 mg tablet 20 mg PO BID 30 days #60 tabs 04/30/23 nicotine 21 mg/24 hr daily transdermal patch 21 mg transdermal DAILY 30 days #30 ea 04/30/23 potassium chloride 20 mEq tablet,extended release(part/cryst) (Klor-Con M) 20 meq PO DAILYCM 30 days #30 tabs 04/30/23 Physical Exam Narrative No acute symptoms. Dizziness has resolved. No chest pain or shortness of breath. Physical exam: General: Alert, Oriented x3, Cooperative HEENT: Atraumatic, PERRLA, EOMI, Normocephalic Oral: No Gingival or Mucosal Lesions/ Ulcerations Neck: Supple, No JVD, Negative Carotid Bruits Lungs: Air entry diminished in bilateral lung bases. No crepitation/rhonchi Cardiovascular: Regular rate, Regular Rhythm, Normal S1, S2, No murmurs Abdomen: Bowel Sounds Present, Soft, Non Tender, Non-Distended : No renal angle tenderness. No suprapubic tenderness. Extremities: No edema, Capillary Refill Less than 3 Seconds Skin: No rashes, No breakdown Musculoskeletal: No Tenderness to Palpation of Joints or Extremities Neurological: Cranial nerves II-XII grossly intact, DTR 2+/4. NIH stroke scale 0. Psych/Mental Status: Normal Affect, Appropriate. Weight / BMI Weight Weight: 187 lb 13.341 oz Body Mass Index (BMI) 28.5 ABG / Lab / Microbiology Data 04/29/23 03:35 04/30/23 06:05 Laboratory: Laboratory Results - last 24 hr 04/30/23 06:05: Sodium 139, Potassium 3.5, Chloride 109 H, Carbon Dioxide 25.0, Anion Gap 5, BUN 14, Creatinine 1.35 H, Estim Creat Clear Calc 47.15, Est GFR (MDRD) Af Amer 67, Est GFR (MDRD) Non-Af 55 L, BUN/Creatinine Ratio 10.4, Glucose 100, Calcium 9.0, Phosphorus 3.0, Magnesium 2.4 Radiography Diagnostic Testing: Radiology Impression Echocardiogram 04/29/23 09:57 Interpretation Summary The estimated ejection fraction is 65 %. No evidence for diastolic dysfunction. Trivial mitral valve insufficiency. Aortic sclerosis, no stenosis. Ordering Physician: Adebayo Sanchez Performed By: Elvira Morley RDCS, RVT Meaningful Use Info Meaningful Use Diagnoses (Choose all that apply): None applicable Discharge Plan Admission Admit Date/Time: 04/28/23 23:08 Primary Reason for Your Visit: Hypertension emergency Attending Provider: Adebayo Sanchez Primary Care Provider: Janell Dickerson Consulting Providers: Giovanny Ross Discharge Orders/Prescriptions Prescriptions: New lisinopril 20 mg Tablet 20 mg PO BID 30 Days Qty: 60 2RF potassium chloride [Klor-Con M20] 20 mEq Tablet,Er Particles/Crystals 20 meq PO DAILYCM 30 Days Qty: 30 0RF amlodipine 10 mg Tablet 10 mg PO DAILY 30 Days Qty: 30 2RF nicotine 21 mg/24 hr Patch 24 Hour 21 mg transdermal DAILY 30 Days Qty: 30 0RF hydrochlorothiazide 25 mg Tablet 25 mg PO DAILY 30 Days Qty: 30 2RF hydralazine 50 mg tablet 50 mg PO TID 30 Days Qty: 90 0RF Rx Instructions: Hold for SBP less than 130 mmHg Continued ascorbic acid (vitamin C) [Vitamin C] 250 mg tablet Referrals / Follow Up: Janell Dickerson MD [Primary Care Provider] - Within 1 Week Sen Baker MD [Non-Staff] - Disposition Disposition (needs filled in before D/C Order can be placed): Home, Self Care Charges/Coding Visit Charges Inpatient E&M: 79880 Disch Hosp >30min
[2023-04-30 12:10] VITALS: BP 180/79; PULSE 75
[2023-04-30] MEDS: hydrALAZINE 50 MG Tablet PO (12:10)
== END 2023-04-30 12:16 | disposition home or self-care (01) | DRG 305 ==
LOC: ED 23:14 → ICU 23:24 → PCU 04-29 16:45
PROVIDERS: Admitting Provider Hospitalist; Emergency Provider Emergency Medicine; PCP Family Medicine; Visit Provider Internal Medicine
DX: I16.1 Hypertensive emergency (principal); E87.6 Hypokalemia; I10 Essential (primary) hypertension; F17.210 Nicotine dependence, cigarettes, uncomplicated
CPT/HCPCS: 36415; 70450; 71045; 80048; 80076; 80307; 81001; 82077; 83735; 84100; 84484; 85025; 93005; 93306; 99284; 99406; J7050; Q9957; A4216

== ENCOUNTER → 2023-05-24 | Outpatient (CLI) | payer MEDICARE, OTHER, SELFPAY ==
--- NOTE | 2023-05-24 16:00 | RAD_ITS ---
EXAM: XR LEFT KNEE COMPLETE, 4 OR MORE VIEWS CLINICAL INDICATION: PAIN TECHNIQUE: Four or more views of the left knee. COMPARISON: February 24, 2015. FINDINGS: BONES/JOINTS: Marked medial joint compartment narrowing and mild widening of the lateral joint compartment. Mild periarticular osteophytes at the medial tibial plateau the frontal view. Subtle cystic focus in the subarticular bone at the lateral aspect of the lateral to tibial plateau measuring roughly 1.6 cm similar to 2015. No convincing suprapatellar joint effusion, trace if any fluid. Mild posterior-superior osteophytes at the patella margin. No acute fracture. No subluxation. Normal alignment. No sclerotic or destructive changes observed. SOFT TISSUES: Unremarkable. No soft tissue swelling or gas. No radiopaque foreign body. VASCULATURE: Moderate arterial calcification of the SFA and popliteal artery. RAD/Knee 4 or More Views IMPRESSION: 1. Significantly worsened marked medial joint compartment narrowing and slight increased periarticular osteophytes medially compared to 2015. 2. Significantly increased visible arterial calcifications. Electronically Signed: Khadra Cote MD at 8:55 EDT ,
[2023-05-24 16:55] LABS: Absolute Lymphocyte Count 2.02 X10^3/uL (0.83-4.51); Basophil% 1.1 % (0-1); Eosinophils% 2.2 % (0-5); Hematocrit 44.4 % (40-54); Hemoglobin 15.5 g/dL (13.0-16.5); Lymphocyte # 2.02 X10^3/ul (0.83-4.51); Lymphocyte % 22.1 % (19-41); Mean Corp Hgb Conc 34.9 g/dL (32-36); Mean Corpuscular Hgb 32.5 pg (27.0-32.0); Mean Corpuscular Volume 93.1 fL (80-94); Mean Platelet Vol. 10.5 fl (6.2-12.0); Monocyte# 0.78 X10^3/uL; Monocyte% 8.5 % (0-10); NRBC Flagged by Analyzer 0 % (0-5); Neutrophil # 5.99 X10^3/uL (2.7-7.7); Neutrophil % 65.4 % (47-70); Platelet Count 367 K/mm3 (150-450); RBC Distribution Width SD 37.4 fl (35.1-43.9); Red Blood Count 4.77 M/mm3 (4.6-6.2); White Blood Count 9.2 K/mm3 (4.4-11.0)
[2023-05-24 17:21] LABS: Vitamin B12 587 pg/mL (211-911)
[2023-05-24 17:24] LABS: Hemoglobin A1c 5.8 % (3.8-5.6)
[2023-05-24 18:10] LABS: ALB/GLOB Ratio 1.1 RATIO (0.9-2.4); AST(SGOT) 15 U/L (15-37); Alanine Aminotransfer ALT/SGPT 34 U/L (16-61); Albumin, Serum 3.7 g/dL (3.2-5.0); Alkaline Phosphatase 81 U/L (45-117); Anion Gap 6 (5-15); BUN 26 mg/dL (7-18); BUN/Creat Ratio 18.6 RATIO (10-20); Calcium,Total 9.5 mg/dL (8.5-10.1); Chloride 106 mmol/L (98-107); Cholesterol 204 mg/dL (200); EST Glomerular Filtration Rate 53 mL/min (>60); Est Glom Filt Rate - Afr Amer 64 mL/min (>60); Free T3 2.5 pg/mL (2.18-3.98); Globulin 3.4 g/dL (2.2-4.2); Glucose 135 mg/dL (74-106); High Density Lipoprotein 39 mg/dL; Protein, Total 7.1 g/dL (6.4-8.2); Sodium Level 138 mmol/L (136-145); Thyroid Stim Hormone (TSH) 1.89 uIU/mL (0.358-3.74); Triglycerides 308 mg/dL; Very Low Density Lipoprotein 62 mg/dL (5-40)
== END | disposition home or self-care (01) ==
PROVIDERS: PCP Family Medicine; Visit Provider Family Medicine
DX: E78.5 Hyperlipidemia, unspecified (principal); R73.09 Other abnormal glucose; Z51.81 Encounter for therapeutic drug level monitoring; G93.40 Encephalopathy, unspecified
CPT/HCPCS: 36415; 73564; 80053; 80061; 82140; 82607; 82746; 83036; 84439; 84443; 84481; 85025

== ENCOUNTER → 2023-10-03 | Outpatient (CLI) | payer MEDICARE, OTHER, SELFPAY ==
--- NOTE | 2023-10-03 13:47 | RAD_ITS ---
STUDY: X-RAY - LUMBAR SPINE REASON FOR EXAM: Male, 72 years old. Back and hip pain. TECHNIQUE: 4 view(s) of the lumbar spine were obtained on 5 images. COMPARISON: October 10, 2013. FINDINGS: Osteopenia. Normal lumbar lordosis. No scoliosis. 9 mm of anterolisthesis of L4 on L5, slightly progressed since the prior study. Diffuse moderate lower thoracic and lumbosacral spondylosis. Diffuse intervertebral disc space narrowing with osteophytes most marked in the lower thoracic region and at L3-4, L4-5 and to the greatest degree L5-S1, all slightly progressed since the comparison study. Vascular calcifications. Cholecystectomy clips. RAD/L/S Spine Min 4 Views IMPRESSION: Osteopenia with progression of lower thoracic and lumbosacral spondylosis as described. No acute abnormality. Electronically Signed: Mario Grimes MD at 14:46 EST ,
--- NOTE | 2023-10-03 13:47 | RAD_ITS ---
STUDY: X-RAY - PELVIS AND BILATERAL HIPS REASON FOR EXAM: Male, 72 years old. Back and hip pain. TECHNIQUE: AP view of the pelvis.? 2 views of the right hip, and 2 views of the left hip were obtained. COMPARISON: None. FINDINGS: There is a non-specific bowel gas pattern. Phleboliths. Osteopenia. Normal bilateral iliac wings, sacroiliac joints and visualized sacrum. Normal bilateral superior and inferior pubic rami. Normal pubic symphysis. Normal bilateral ischial tuberosities. Mild arthrosis of both hips. RAD/Hips B/L min 2 views w/ Pelvis IMPRESSION: Osteopenia with mild arthrosis of both hips. No other abnormality. Electronically Signed: Mario Grimes MD at 14:40 EST ,
--- NOTE | 2023-10-03 14:00 | RAD_ITS ---
STUDY: X-RAY - THORACIC SPINE REASON FOR EXAM: Male, 72 years old. No acute hip pain. TECHNIQUE: 2 view(s) of the thoracic spine were obtained on 4 images. COMPARISON: None. FINDINGS: Osteopenia. Normal kyphosis of the thoracic spine. No substantial scoliosis. Diffuse mild intervertebral disc space narrowing with osteophytes. Normal soft tissues. RAD/Thoracic Spine 2 Views IMPRESSION: Osteopenia with diffuse mild thoracic spondylosis. Electronically Signed: Mario Grimes MD at 14:48 EST ,
== END | disposition home or self-care (01) ==
LOC: RAD 13:40
PROVIDERS: PCP Family Medicine; Referring Provider Family Medicine; Visit Provider Family Medicine
DX: M54.9 Dorsalgia, unspecified (principal); M25.551 Pain in right hip; M25.552 Pain in left hip
CPT/HCPCS: 72070; 72110; 73521

== ENCOUNTER → 2023-10-04 | Outpatient (CLI) | payer MEDICARE, OTHER, SELFPAY ==
[2023-10-04 10:17] LABS: Microalbumin,Random Urine 10.8 mg/L (NO RANGE EST.); Microalbumin:Creatinine Ratio 7.7 mg/g CRE (<30 mg/g CRE)
[2023-10-04 12:01] LABS: ALB/GLOB Ratio 1.1 RATIO (0.9-2.4); AST(SGOT) 20 U/L (15-37); Alanine Aminotransfer ALT/SGPT 36 U/L (16-61); Albumin, Serum 3.9 g/dL (3.2-5.0); Alkaline Phosphatase 90 U/L (45-117); Anion Gap 8 (5-15); BUN 25 mg/dL (7-18); BUN/Creat Ratio 16.4 RATIO (10-20); Calcium,Total 9.1 mg/dL (8.5-10.1); Chloride 108 mmol/L (98-107); Cholesterol 246 mg/dL (200); Creatinine, Serum 1.52 mg/dL (0.70-1.30); EST Glomerular Filtration Rate 48 mL/min (>60); Est Glom Filt Rate - Afr Amer 58 mL/min (>60); Globulin 3.4 g/dL (2.2-4.2); Glucose 126 mg/dL (74-106); High Density Lipoprotein 42 mg/dL; Potassium 4.2 mmol/L (3.5-5.1); Protein, Total 7.3 g/dL (6.4-8.2); Sodium Level 141 mmol/L (136-145); Triglycerides 247 mg/dL; Very Low Density Lipoprotein 49 mg/dL (5-40)
== END | disposition home or self-care (01) ==
LOC: LAB 08:48
PROVIDERS: PCP Family Medicine; Referring Provider Family Medicine; Visit Provider Family Medicine
DX: I12.9 Hypertensive chronic kidney disease with stage 1 through stage 4 chronic kidney disease, or unspecified chronic kidney disease (principal); N18.31 Chronic kidney disease, stage 3a; E78.5 Hyperlipidemia, unspecified; Z51.81 Encounter for therapeutic drug level monitoring
CPT/HCPCS: 36415; 80053; 80061; 82043; 82570

== ENCOUNTER → 2024-02-28 | Outpatient (CLI) | payer MEDICARE, OTHER, SELFPAY | END | disposition home or self-care (01) | PROVIDERS: PCP Nurse Practitioner Family; Referring Provider Nurse Practitioner Family; Visit Provider Nurse Practitioner Family | DX: R19.7 Diarrhea, unspecified (principal) | CPT/HCPCS: 83630; 87177; 87209; 87493 ==

== ENCOUNTER 2024-03-21 13:46 | Emergency (ER) | payer MEDICARE, OTHER, SELFPAY ==
[2024-03-21 13:47] VITALS: BP 125/81; PULSE 78; RESP 18; TEMP 36.9; O2SAT 100; BMI 27.1
[2024-03-21 13:50] VITALS: BP 125/81; PULSE 78; RESP 18; TEMP 36.9; O2SAT 100
--- NOTE | 2024-03-21 14:24 | CT_ITS ---
STUDY: CT ABDOMEN AND PELVIS WITH CONTRAST REASON FOR EXAM: Male, 73 years old. 4 week history of diarrhea. RADIATION DOSAGE (If Supplied By Facility): CTDIvol = ( 16.65 ) mGy, DLP = ( 986.13 ) mGycm TECHNIQUE: Transaxial images were obtained from the dome of the diaphragm to the symphysis pubis without oral contrast. IV 100mL Isovue-300 was administered. Sagittal and coronal images were reconstructed. Individualized dose optimization techniques were used for this CT. COMPARISON: None. FINDINGS: The visualized lung bases are unremarkable. The visualized portions of the heart are within normal limits. Normal liver. There are surgical clips in the gallbladder fossa consistent with a prior cholecystectomy. Normal spleen. Normal pancreas. Normal bilateral adrenal glands. Normal right kidney. Normal left kidney. There is a small hiatal hernia. Normal small intestine. There is diffuse wall thickening of the sigmoid colon and rectum. Colitis should be ruled out. There is also evidence of thickening of the cecum. The appendix is visualized and appears normal. Normal abdominal aorta. Normal inferior vena cava. Normal retroperitoneum. Normal urinary bladder. There is heterogeneous enlargement of the prostate. The prostate measures 4.7 cm x 5.8 cm. There is a left-sided inguinal hernia containing adipose tissue. There are diffuse degenerative changes of the visualized lumbar spine. CT/Abdomen/Pelvis W IV Cont ONLY IMPRESSION: Findings suggestive of colitis of the rectosigmoid colon as well as the cecum. There is also evidence of sigmoid diverticulosis. Electronically Signed: Ba Jara MD at 15:23 EDT ,
--- NOTE | 2024-03-21 14:43 | ED.VIS.GI ---
HPI <ANDREINA Grijalva - Last Filed: 03/21/24 17:12> HPI - GI History of Present Illness Chief Complaint: Diarrhea Narrative Narrative: Patient presenting today with diarrhea that he has had over the past month. He reports that he will have several bouts of loose stool in the mornings, in the afternoon he tends to be okay but then will have several more bouts in the evenings. Nothing seems to trigger the diarrhea, he has not been on any new medications or antibiotics. He tried eliminating dairy from his diet thinking it would help but has had no relief. He has seen his PCP for this, they did obtain a stool study a few weeks ago but he is unsure of the results. He has tried taking Imodium, diphenoxylate, and budesonide with minimal relief. He denies any fevers, chills, abdominal pain, nausea, and vomiting. [facility] <ANDREINA Grijalva - Last Filed: 03/21/24 17:12> [facility] Medical History Hypertension Home Medications ?Medication ?Instructions ?Recorded ?Last Taken ?Type amlodipine 10 mg tablet 10 mg PO DAILY 30 days #30 tabs 04/30/23 Unknown Rx lisinopril 20 mg tablet 20 mg PO BID 30 days #60 tabs 04/30/23 Unknown Rx budesonide 3 mg mg PO 03/21/24 Unknown History capsule,delayed,extended release bupropion HCl 200 mg tablet,12 hr 200 mg PO BID 03/21/24 Unknown History sustained-release ciprofloxacin HCl 500 mg tablet 500 mg PO BID #14 TABLETS 03/21/24 Unknown Rx lisinopril 40 mg tablet 40 mg PO BID 03/21/24 Unknown History metoprolol succinate 50 mg 50 mg PO QHS 03/21/24 Unknown History tablet,extended release 24 hr metronidazole 500 mg tablet 500 mg PO TID 7 days #21 tabs 03/21/24 Unknown Rx nabumetone 500 mg tablet 500 mg PO BID PRN PRN pain 03/21/24 Unknown History simvastatin 5 mg tablet 5 mg PO QPM 03/21/24 Unknown History Allergy/AdvReac Type Severity Reaction Status Date / Time No Known Allergies Allergy Verified 03/21/24 13:47 Family History Other Cancer Surgical History Hx of cholecystectomy Social History Smoking Status: Current every day smoker tobacco type: cigarettes ROS <ANDREINA Grijalva - Last Filed: 03/21/24 17:12> ROS ED Constitutional Constitutional ED: Denies chills or fever(s) Cardiovascular Cardiovascular: Denies chest pain Respiratory/Chest Respiratory/Chest: Denies dyspnea Gastrointestinal Gastrointestinal: Reports diarrhea; Denies abdominal pain, hematochezia, melena, nausea or vomiting Genitourinary Genitourinary ED: Denies dysuria Neurologic Neurologic: Denies weakness EXAM <ANDREINA Grijalva - Last Filed: 03/21/24 17:12> Physical Exam Const Vital Signs: 03/21/24 13:47 03/21/24 13:50 03/21/24 16:01 Temperature 98.4 F 98.4 F 97.2 F L Temperature Source Temporal Oral Pulse Rate 78 78 72 Respiratory Rate 18 18 17 Blood Pressure 125/81 H 125/81 H 134/69 H Blood Pressure Mean 95 95 90 Pulse Ox 100 100 98 Oxygen Delivery Method Room Air Room Air Positive well nourished, well developed and no apparent distress General Appearance ED: well developed HEENT Reports normocephalic and head/scalp atraumatic Mouth ED: Yes moist mucous membranes normal Eyes PERRL and EOMs intact bilaterally Neck full ROM and supple Chest Wall inspection of chest normal Resp normal respiratory effort and clear to auscultation bilaterally Cardio regular rate and regular rhythm GI soft to palpation, non-tender, non-distended and no masses Back/Spine normal ROM and normal to inspection Extremity normal to inspection and full ROM Neuro oriented x3, CN's II-XII intact bilaterally, moves all extremities, no focal motor deficits and no sensory deficits noted Sensorium / Orientation: awake and alert Psych mental status grossly normal and thought process normal Skin no rashes or lesions noted and no wounds <Dr. Danica Kramer DO - Last Filed: 04/01/24 15:31> Physical Exam Const Vital Signs: 03/21/24 13:47 03/21/24 13:50 03/21/24 16:01 Temperature 98.4 F 98.4 F 97.2 F L Temperature Source Temporal Oral Pulse Rate 78 78 72 Respiratory Rate 18 18 17 Blood Pressure 125/81 H 125/81 H 134/69 H Blood Pressure Mean 95 95 90 Pulse Ox 100 100 98 Oxygen Delivery Method Room Air Room Air [facility] <ANDREINA Grijalva - Last Filed: 03/21/24 17:12> [facility] Narrative Medical decision making narrative: Patient presenting due to diarrhea he has had over the past month. This is being worked up by his PCP who referred him to GI but he is unable to see them until May and does not want to wait that long without an answer. I did review his stool culture, these were negative for C. difficile and ova and parasites. We will attempt to obtain an enteric pathogen panel. CBC and BMP obtained here, labs overall are unremarkable. CT of the abdomen and pelvis shows colitis. Unfortunately, GI is not on-call to consult with. Will place patient on ciprofloxacin and Flagyl. I have given him a GI referral and encouraged that he follow-up with his PCP. Patient be discharged home in stable condition. Lab Data Attestation: I reviewed the patient's lab results. Labs: Laboratory Results - last 24 hr 03/21/24 14:30 WBC 8.5 RBC 4.48 L Hgb 14.1 Hct 43.2 MCV 96.4 H MCH 31.5 MCHC 32.6 RDW Std Deviation 43.1 RDW Coeff of Traci 12.1 Plt Count 309 MPV 9.9 Immature Gran % (Auto) 1.100 H Neut % (Auto) 72.2 H Lymph % (Auto) 16.3 L [place] % (Auto) 8.3 Eos % (Auto) 1.3 Baso % (Auto) 0.8 Absolute Neuts (auto) 6.1 Absolute Lymphs (auto) 1.38 Nucleated RBC % 0 Sodium 140 Potassium 3.5 Chloride 110 H Carbon Dioxide 26.0 Anion Gap 4 L BUN 12 Creatinine 1.28 Estim Creat Clear Calc 48.98 Est GFR (MDRD) Af Amer 71 Est GFR (MDRD) Non-Af 58 L BUN/Creatinine Ratio 9.4 L Glucose 128 H Calcium 8.6 Radiography Diagnostic Testing: Clinical Impression(s) from Imaging Studies Abdomen/Pelvis CT 03/21/24 14:24 IMPRESSION: Findings suggestive of colitis of the rectosigmoid colon as well as the cecum. There is also evidence of sigmoid diverticulosis. Electronically Signed: Ba Jara MD at 15:23 EDT , <Dr. Danica Kramer, DO - Last Filed: 04/01/24 15:31> [facility] Narrative Medical decision making narrative: Patient presenting due to diarrhea he has had over the past month. This is being worked up by his PCP who referred him to GI but he is unable to see them until May and does not want to wait that long without an answer. I did review his stool culture, these were negative for C. difficile and ova and parasites. We will attempt to obtain an enteric pathogen panel. CBC and BMP obtained here, labs overall are unremarkable. CT of the abdomen and pelvis shows colitis. Unfortunately, GI is not on-call to consult with. Will place patient on ciprofloxacin and Flagyl. I have given him a GI referral and encouraged that he follow-up with his PCP. Patient be discharged home in stable condition. I have personally performed a face to face assessment of the patient and have reviewed the EUNICE Note. I performed a substantive portion of the visit including all aspects of the following. My perales findings include: History is 73-year-old male presenting with 1 month of diarrhea. He did have some stool studies performed by his PCP which were negative. Tried Imodium with no relief. Does not have associated abdominal pain, nausea or vomiting. No black or blood in his stool reported. Denies any camping or any exposures that could have triggered this. Denies any recent antibiotics. Physical exam relatively benign. Does not appear dehydrated. Vital signs are normal. Due to longevity of symptoms we did obtain lab work as well as a CT abdomen pelvis. Lab work largely unremarkable however his CT does show findings of colitis of the rectosigmoid colon as well as the cecum. Patient is placed on antibiotics for this (Cipro and Flagyl) and given outpatient GI follow-up locally. He is agreeable this plan of care. Is given return precautions. Discharged home in stable condition. We did order further stool studies however patient unable to provide a stool sample at this time. Other additions or changes: [None] Lab Data Labs: Laboratory Results - last 24 hr 03/21/24 14:30 WBC 8.5 RBC 4.48 L Hgb 14.1 Hct 43.2 MCV 96.4 H MCH 31.5 MCHC 32.6 RDW Std Deviation 43.1 RDW Coeff of Traci 12.1 Plt Count 309 MPV 9.9 Immature Gran % (Auto) 1.100 H Neut % (Auto) 72.2 H Lymph % (Auto) 16.3 L [place] % (Auto) 8.3 Eos % (Auto) 1.3 Baso % (Auto) 0.8 Absolute Neuts (auto) 6.1 Absolute Lymphs (auto) 1.38 Nucleated RBC % 0 Sodium 140 Potassium 3.5 Chloride 110 H Carbon Dioxide 26.0 Anion Gap 4 L BUN 12 Creatinine 1.28 Estim Creat Clear Calc 48.98 Est GFR (MDRD) Af Amer 71 Est GFR (MDRD) Non-Af 58 L BUN/Creatinine Ratio 9.4 L Glucose 128 H Calcium 8.6 Radiography Diagnostic Testing: Clinical Impression(s) from Imaging Studies Abdomen/Pelvis CT 03/21/24 14:24 IMPRESSION: Findings suggestive of colitis of the rectosigmoid colon as well as the cecum. There is also evidence of sigmoid diverticulosis. Electronically Signed: Ba Jara MD at 15:23 EDT , Discharge Plan Triage Chief Complaint: Diarrhea ED Midlevel Provider: Ling Hernandez ED Provider: Danica Kramer Dx/Rx/DC Orders Clinical Impression: Diarrhea Instructions: ED Diarrhea, Unknown Cause Prescriptions: New ciprofloxacin HCl 500 mg tablet 500 mg PO BID Qty: 14 0RF metronidazole 500 mg tablet 500 mg PO TID 7 Days Qty: 21 0RF No Action lisinopril 20 mg Tablet 20 mg PO BID 30 Days Qty: 60 2RF amlodipine 10 mg Tablet 10 mg PO DAILY 30 Days Qty: 30 2RF metoprolol succinate 50 mg tablet extended release 24 hr 50 mg PO QHS simvastatin 5 mg tablet 5 mg PO QPM budesonide 3 mg capsule,delayed,extend.release PO lisinopril 40 mg tablet 40 mg PO BID nabumetone 500 mg tablet 500 mg PO BID PRN PRN (Reason: pain) bupropion HCl 200 mg tablet sustained-release 12 hr 200 mg PO BID Primary Care Provider: Susy Teran Referrals: Susy Teran DO [Primary Care Provider] - 5-7 Days Friend,DO Toby [Med Staff - Active Staff] - 5-7 Days Activity Restrictions/Additional Instructions: Follow-up with your PCP and return for any worsening of your symptoms. Print Language: [place] Disposition Disposition: Home, Self Care Discharge Date/Time: 03/21/24 16:13
[2024-03-21 14:44] LABS: Absolute Lymphocyte Count 1.38 X10^3/uL (0.83-4.51); Absolute Neutrophil Count 6.1 X10^3/uL (2.0-7.7); Basophil# 0.07 X10^3/uL; Basophil% 0.8 % (0-1); Eosinophil# 0.11 X10^3/uL; Eosinophils% 1.3 % (0-5); Hematocrit 43.2 % (40-54); Hemoglobin 14.1 g/dL (13.0-16.5); Lymphocyte # 1.38 X10^3/ul (0.83-4.51); Lymphocyte % 16.3 % (19-41); Mean Corp Hgb Conc 32.6 g/dL (32-36); Mean Corpuscular Hgb 31.5 pg (27.0-32.0); Mean Corpuscular Volume 96.4 fL (80-94); Mean Platelet Vol. 9.9 fl (6.2-12.0); Monocyte% 8.3 % (0-10); NRBC Flagged by Analyzer 0 % (0-5); Neutrophil # 6.12 X10^3/uL (2.7-7.7); Neutrophil % 72.2 % (47-70); Platelet Count 309 K/mm3 (150-450); RBC Distribution Width CV 12.1 % (11.6-14.6); RBC Distribution Width SD 43.1 fl (35.1-43.9); Red Blood Count 4.48 M/mm3 (4.6-6.2); White Blood Count 8.5 K/mm3 (4.4-11.0)
[2024-03-21 14:56] LABS: Anion Gap 4 (5-15); BUN 12 mg/dL (7-18); BUN/Creat Ratio 9.4 RATIO (10-20); Calcium,Total 8.6 mg/dL (8.5-10.1); Chloride 110 mmol/L (98-107); Creatinine, Serum 1.28 mg/dL (0.70-1.30); EST Glomerular Filtration Rate 58 mL/min (>60); Est Glom Filt Rate - Afr Amer 71 mL/min (>60); Estimated Creatinine Clearance 48.98 ml/min; Glucose 128 mg/dL (74-106); Potassium 3.5 mmol/L (3.5-5.1); Sodium Level 140 mmol/L (136-145)
[2024-03-21 16:01] VITALS: BP 134/69; PULSE 72; RESP 17; TEMP 36.2; O2SAT 98
== END 2024-03-21 16:13 | disposition home or self-care (01) ==
PROVIDERS: Physician Assistant; Emergency Provider Emergency Medicine; PCP Family Medicine; Visit Provider Emergency Medicine
DX: K52.9 Noninfective gastroenteritis and colitis, unspecified (principal); F17.210 Nicotine dependence, cigarettes, uncomplicated; I10 Essential (primary) hypertension; Z79.899 Other long term (current) drug therapy
CPT/HCPCS: 74177; 80048; 85025; 99283; Q9967; A4216

== ENCOUNTER 2024-04-01 12:04 | Emergency (ER) | payer MEDICARE, OTHER, SELFPAY ==
[2024-04-01 12:05] VITALS: BP 109/75; PULSE 67; RESP 16; TEMP 36.6; O2SAT 98; BMI 27.1
--- NOTE | 2024-04-01 12:49 | ED.VIS.GI ---
HPI HPI - GI History of Present Illness Chief Complaint: Diarrhea Informant: patient Nausea/Vomiting/Emesis GI Symptom: Negative for Nausea or Vomiting Diarrhea/Melena/Hematochezia GI Symptom: Positive for Diarrhea; Negative for Melena or Hematochezia Onset: Weeks (5) Stool Quality: Positive for Watery Associated Symptoms Associated Symptoms: Negative for Dysuria, Frequency, Hematuria or Urgency Narrative Narrative: Patient presents with diarrhea that has been constant for the past 5 weeks. Patient was seen here approximately 2 weeks ago and was diagnosed with colitis at that time. Patient had a CT scan which showed that. Patient was given prescriptions for Cipro and Flagyl. Patient states he completed the antibiotics and his diarrhea seemed to improve with this. Patient states that after he completed the antibiotics, his diarrhea returned. Patient denies any melena or hematochezia. Patient states his stools are just watery. Patient denies any nausea or vomiting. Patient denies any abdominal pain. [facility] Medical History Hypertension Home Medications ?Medication ?Instructions ?Recorded ?Last Taken ?Type amlodipine 10 mg tablet 10 mg PO DAILY 30 days #30 tabs 04/30/23 Unknown Rx lisinopril 20 mg tablet 20 mg PO BID 30 days #60 tabs 04/30/23 Unknown Rx budesonide 3 mg mg PO 03/21/24 Unknown History capsule,delayed,extended release bupropion HCl 200 mg tablet,12 hr 200 mg PO BID 03/21/24 Unknown History sustained-release lisinopril 40 mg tablet 40 mg PO BID 03/21/24 Unknown History metoprolol succinate 50 mg 50 mg PO QHS 03/21/24 Unknown History tablet,extended release 24 hr nabumetone 500 mg tablet 500 mg PO BID PRN PRN pain 03/21/24 Unknown History simvastatin 5 mg tablet 5 mg PO QPM 03/21/24 Unknown History ciprofloxacin HCl 500 mg tablet 500 mg PO BID #20 TABLETS 04/01/24 Unknown Rx metronidazole 500 mg tablet 500 mg PO Q6H 10 days #40 tabs 04/01/24 Unknown Rx Allergy/AdvReac Type Severity Reaction Status Date / Time No Known Allergies Allergy Verified 03/21/24 13:47 Family History Other Cancer Surgical History Hx of cholecystectomy Social History Smoking Status: Current every day smoker tobacco type: cigarettes ROS ROS ED Constitutional Constitutional ED: Denies chills or fever(s) Eyes Eyes: Denies blurry vision or change in vision ENT ENT ED: Denies rhinorrhea or sore throat Cardiovascular Cardiovascular: Denies chest pain or palpitations Respiratory/Chest Respiratory/Chest: Denies cough or dyspnea Gastrointestinal Gastrointestinal: Reports diarrhea; Denies abdominal pain, nausea or vomiting Genitourinary Genitourinary ED: Denies dysuria or hematuria Musculoskeletal Musculoskeletal: Reports back pain; Denies neck pain Integumentary Denies abscess or rash Neurologic Neurologic: Denies headache(s) or weakness Allergic/Immunologic Allergic/Immunologic ED: Denies mouth swelling or urticaria EXAM Physical Exam Const Vital Signs: 04/01/24 12:05 04/01/24 14:05 Temperature 97.8 F Temperature Source Temporal Pulse Rate 67 67 Respiratory Rate 16 18 Blood Pressure 109/75 137/80 H Blood Pressure Mean 86 99 Pulse Ox 98 100 Oxygen Delivery Method Room Air Room Air Positive well nourished and well developed General Appearance ED: well developed and NAD HEENT Reports moist mucous membranes Neck supple and no JVD Resp normal respiratory effort and clear to auscultation bilaterally Cardio regular rate and regular rhythm GI non-distended Palpation: soft and tender epigastric, LLQ, RLQ, LUQ, RUQ, periumbilical and suprapubic; Negative for guarding or rebound tenderness present Neuro CN's II-XII intact bilaterally, moves all extremities and no sensory deficits noted Sensorium / Orientation: alert Motor Exam: strength 5/5 throughout Psych mental status grossly normal MDM MDM MDM Narrative Medical decision making narrative: Differential diagnosis includes colitis, diverticulitis, gastroenteritis, anemia, pancreatitis, electrolyte abnormality, dehydration. Since the patient had a recent CT scan of his abdomen and pelvis, I do not feel it needs to be repeated at this time. CBC will be obtained to assess for leukocytosis and anemia. Comprehensive metabolic profile will be obtained to assess for hepatic function, renal function, and electrolyte abnormality. Lipase will be obtained to assess for pancreatitis. Urinalysis will be obtained to assess for urinary tract infection. Lab Data Attestation: I reviewed the patient's lab results. Lab results narrative: CBC was reviewed and was within normal limits. Comprehensive metabolic profile was reviewed and was within normal limits. Lipase was reviewed and was normal at 42. Urinalysis was reviewed. There is no evidence of urinary tract infection or hematuria. Labs: Laboratory Results - last 24 hr 04/01/24 04/01/24 12:05 13:45 WBC 8.1 RBC 4.38 L Hgb 14.1 Hct 42.9 MCV 97.9 H MCH 32.2 H MCHC 32.9 RDW Std Deviation 44.2 H RDW Coeff of Traci 12.2 Plt Count 306 MPV 9.7 Immature Gran % (Auto) 2.300 H Neut % (Auto) 68.9 Lymph % (Auto) 17.6 L Peach % (Auto) 8.9 Eos % (Auto) 1.2 Baso % (Auto) 1.1 H Absolute Neuts (auto) 5.6 Absolute Lymphs (auto) 1.42 Nucleated RBC % 0 Sodium 139 Potassium 3.9 Chloride 111 H Carbon Dioxide 25.0 Anion Gap 3 L BUN 13 Creatinine 1.21 Estim Creat Clear Calc 51.82 Est GFR (MDRD) Af Amer 75 Est GFR (MDRD) Non-Af 62 BUN/Creatinine Ratio 10.7 Glucose 105 Calcium 8.9 Total Bilirubin 0.30 AST 14 L ALT 24 Alkaline Phosphatase 76 Total Protein 6.4 Albumin 3.4 Globulin 3.0 Albumin/Globulin Ratio 1.1 Lipase 42 Urine Color Yellow Urine Clarity Clear Urine pH 7.0 Ur Specific [place] 1.010 Urine Protein Negative Urine Glucose (UA) Normal Urine Ketones Negative Urine Occult Blood Negative Urine Nitrite Negative Urine Bilirubin Negative Urine Urobilinogen Normal Ur Leukocyte Esterase 25 H Urine RBC 0 SEEN Urine WBC 0-5 SEEN Ur Squamous Epith Cells 0-5 SEEN Urine Bacteria 0 SEEN Urine Mucus 0 SEEN Treatment and Re-Evaluation :: Patient was advised of his findings. Patient was unable to produce stool for stool studies here. Given the patient's recent history of colitis, we will cover the patient with another course of Cipro and Flagyl. Patient was given a dose here. Patient was instructed to follow-up with his primary care physician in 5 to 7 days. Patient was advised he may need a referral for gastroenterology for further evaluation. Patient understood and was agreeable with the plan. All questions were answered. Discharge Plan Triage Chief Complaint: Diarrhea ED Provider: Shakir Garcia Dx/Rx/DC Orders Clinical Impression: Diarrhea, Hypertension, Colitis Instructions: ED Diarrhea, Unknown Cause Prescriptions: Continued ciprofloxacin HCl 500 mg tablet 500 mg PO BID Qty: 20 0RF Changed metronidazole 500 mg tablet 500 mg PO Q6H 10 Days Qty: 40 0RF No Action lisinopril 20 mg Tablet 20 mg PO BID 30 Days Qty: 60 2RF amlodipine 10 mg Tablet 10 mg PO DAILY 30 Days Qty: 30 2RF metoprolol succinate 50 mg tablet extended release 24 hr 50 mg PO QHS simvastatin 5 mg tablet 5 mg PO QPM budesonide 3 mg capsule,delayed,extend.release PO lisinopril 40 mg tablet 40 mg PO BID nabumetone 500 mg tablet 500 mg PO BID PRN PRN (Reason: pain) bupropion HCl 200 mg tablet sustained-release 12 hr 200 mg PO BID Primary Care Provider: Susy Teran Referrals: Susy Teran DO [Primary Care Provider] - 5-7 Days Toby Corley DO [Med Staff - Active Staff] - 5-7 Days Print Language: Rw[place] Disposition Disposition: Home, Self Care
[2024-04-01 13:09] LABS: Absolute Lymphocyte Count 1.42 X10^3/uL (0.83-4.51); Absolute Neutrophil Count 5.6 X10^3/uL (2.0-7.7); Basophil# 0.09 X10^3/uL; Basophil% 1.1 % (0-1); Eosinophils% 1.2 % (0-5); Hematocrit 42.9 % (40-54); Hemoglobin 14.1 g/dL (13.0-16.5); Lymphocyte # 1.42 X10^3/ul (0.83-4.51); Lymphocyte % 17.6 % (19-41); Mean Corp Hgb Conc 32.9 g/dL (32-36); Mean Corpuscular Hgb 32.2 pg (27.0-32.0); Mean Corpuscular Volume 97.9 fL (80-94); Mean Platelet Vol. 9.7 fl (6.2-12.0); Monocyte# 0.72 X10^3/uL; Monocyte% 8.9 % (0-10); NRBC Flagged by Analyzer 0 % (0-5); Neutrophil # 5.57 X10^3/uL (2.7-7.7); Neutrophil % 68.9 % (47-70); Platelet Count 306 K/mm3 (150-450); RBC Distribution Width CV 12.2 % (11.6-14.6); RBC Distribution Width SD 44.2 fl (35.1-43.9); Red Blood Count 4.38 M/mm3 (4.6-6.2); White Blood Count 8.1 K/mm3 (4.4-11.0)
[2024-04-01 13:33] LABS: ALB/GLOB Ratio 1.1 RATIO (0.9-2.4); AST(SGOT) 14 U/L (15-37); Alanine Aminotransfer ALT/SGPT 24 U/L (16-61); Albumin, Serum 3.4 g/dL (3.2-5.0); Alkaline Phosphatase 76 U/L (45-117); Anion Gap 3 (5-15); BUN 13 mg/dL (7-18); BUN/Creat Ratio 10.7 RATIO (10-20); Calcium,Total 8.9 mg/dL (8.5-10.1); Chloride 111 mmol/L (98-107); Creatinine, Serum 1.21 mg/dL (0.70-1.30); EST Glomerular Filtration Rate 62 mL/min (>60); Est Glom Filt Rate - Afr Amer 75 mL/min (>60); Estimated Creatinine Clearance 51.82 ml/min; Glucose 105 mg/dL (74-106); Lipase 42 U/L (13-75); Potassium 3.9 mmol/L (3.5-5.1); Protein, Total 6.4 g/dL (6.4-8.2); Sodium Level 139 mmol/L (136-145)
[2024-04-01 13:57] LABS: Bacteria 0 SEEN /hpf (None Seen); Mucous, Urine 0 SEEN /hpf (<or=2+); Red Blood Cells-Urine 0 SEEN /hpf (0-5)
[2024-04-01 13:58] LABS: Color, Urine Yellow (Yellow); Glucose, Dipstick Normal (Normal); Ketone-Dipstick Negative (Negative); Leukocyte Esterase-Dipstick 25 /ul (Negative); Nitrite-Dipstick Negative (Negative); Occult Blood-Urine Negative /ul (Negative); Protein-Dipstick Negative (Negative); Urine Bilirubin Dipstick Negative (Negative); Urine Clarity Clear (Clear); Urine Urobilinogen Normal (Normal)
[2024-04-01 14:04] LABS: Squamous Epithelial Cells - UA 0-5 SEEN /hpf (0-5); White Blood Cells 0-5 SEEN /hpf (0-5)
[2024-04-01 14:05] VITALS: BP 137/80; PULSE 67; RESP 18; O2SAT 100
[2024-04-01 16:10] VITALS: BP 110/77; PULSE 70; RESP 17; TEMP 37.2; O2SAT 96
[2024-04-01] MEDS: metroNIDAZOLE 500 MG Tablet PO (16:14)
[2024-04-01] MEDS: Ciprofloxacin 500 MG Tablet PO (16:14)
== END 2024-04-01 16:15 | disposition home or self-care (01) ==
PROVIDERS: Emergency Provider Emergency Medicine; PCP Family Medicine; Visit Provider Emergency Medicine
DX: K52.9 Noninfective gastroenteritis and colitis, unspecified (principal); I10 Essential (primary) hypertension; F17.210 Nicotine dependence, cigarettes, uncomplicated
CPT/HCPCS: 80053; 81001; 83690; 85025; 99284; A4216

== ENCOUNTER → 2024-04-18 | Outpatient (CLI) | payer MEDICARE, OTHER, SELFPAY ==
[2024-04-18 18:19] LABS: Erythrocyte Sedimentation Rate 6 mm/hr (0-20)
[2024-04-18 18:22] LABS: Absolute Lymphocyte Count 1.51 X10^3/uL (0.83-4.51); Absolute Neutrophil Count 5.5 X10^3/uL (2.0-7.7); Basophil# 0.08 X10^3/uL; Eosinophil# 0.11 X10^3/uL; Eosinophils% 1.4 % (0-5); Hemoglobin 14.4 g/dL (13.0-16.5); Lymphocyte # 1.51 X10^3/ul (0.83-4.51); Lymphocyte % 18.9 % (19-41); Mean Corp Hgb Conc 32.7 g/dL (32-36); Mean Corpuscular Hgb 31.5 pg (27.0-32.0); Mean Corpuscular Volume 96.3 fL (80-94); Mean Platelet Vol. 10.5 fl (6.2-12.0); Monocyte# 0.72 X10^3/uL; NRBC Flagged by Analyzer 0 % (0-5); Neutrophil # 5.45 X10^3/uL (2.7-7.7); Neutrophil % 68.4 % (47-70); Platelet Count 349 K/mm3 (150-450); RBC Distribution Width SD 42.3 fl (35.1-43.9); Red Blood Count 4.57 M/mm3 (4.6-6.2)
[2024-04-18 18:36] LABS: ALB/GLOB Ratio 1.1 RATIO (0.9-2.4); AST(SGOT) 15 U/L (15-37); Alanine Aminotransfer ALT/SGPT 21 U/L (16-61); Albumin, Serum 3.5 g/dL (3.2-5.0); Alkaline Phosphatase 67 U/L (45-117); Anion Gap 9 (5-15); BUN 19 mg/dL (7-18); BUN/Creat Ratio 13.6 RATIO (10-20); CRP < 2.90 mg/L (0.0-3.0); Calcium,Total 8.9 mg/dL (8.5-10.1); Chloride 109 mmol/L (98-107); EST Glomerular Filtration Rate 53 mL/min (>60); Est Glom Filt Rate - Afr Amer 64 mL/min (>60); Globulin 3.1 g/dL (2.2-4.2); Glucose 108 mg/dL (74-106); Potassium 4.1 mmol/L (3.5-5.1); Protein, Total 6.6 g/dL (6.4-8.2); Sodium Level 142 mmol/L (136-145)
[2024-04-22 13:07] LABS: ANTINUCLEAR ANTIBODIES DIRECT Negative (Negative)
== END | disposition home or self-care (01) ==
LOC: BFHLAB 16:40
PROVIDERS: PCP Family Medicine; Referring Provider Family Medicine; Visit Provider Family Medicine
DX: I10 Essential (primary) hypertension (principal); R19.7 Diarrhea, unspecified; I77.6 Arteritis, unspecified
CPT/HCPCS: 36415; 80053; 85025; 85652; 86038; 86140; 86225; 86235

== ENCOUNTER → 2024-04-18 | Outpatient (CLI) | payer MEDICARE, OTHER, SELFPAY ==
--- NOTE | 2024-04-18 13:50 | VDLE_ITS ---
Reason For Study: RLE PAin RIGHT LEFT GSV is normal. CFV is compressible, spontaneous, phasic, CFV is compressible, spontaneous, phasic, competent, and demonstrates normal competent and demonstrates normal augmentation. augmentation. FV is compressible, spontaneous, phasic, competent and demonstrates normal augmentation. POP V is compressible, spontaneous, phasic, competent and demonstrates normal augmentation. T/P Trunk is compressible. PTV is compressible. RT PerV is compressible. Procedure This is a venous duplex using B-mode, color flow and spectral Doppler. Exam performed in department. The exam was diagnostic. A preliminary report was called and/or faxed to Dr. Teran office. VL/Venous Duplex US, Unilateral Interpretation Summary Deep veins of the right lower extremity are patent and compressible segmentally . There is no evidence of right lower extremity deep vein thrombosis. Valvular competence nino ears intact within the proximal deep venous system on the right . The right great saphenous vein a ppears patent and compressible segmentally. The left common femoral vein is patent and compressib le . Ordering Physician: Susy Teran Referring Physician: Susy Teran Performed By: Real Garcia, CLIVE
== END | disposition home or self-care (01) ==
LOC: CVS 13:43
PROVIDERS: PCP Family Medicine; Referring Provider Family Medicine; Visit Provider Family Medicine
DX: M79.661 Pain in right lower leg (principal); I82.409 Acute embolism and thrombosis of unspecified deep veins of unspecified lower extremity; I10 Essential (primary) hypertension; R19.7 Diarrhea, unspecified; I77.6 Arteritis, unspecified
CPT/HCPCS: 36415; 80053; 85025; 85652; 86038; 86140; 86225; 86235; 93971

== ENCOUNTER 2024-04-23 11:04 | Emergency (ER) | payer MEDICARE, OTHER, SELFPAY ==
[2024-04-23 11:04] VITALS: BP 137/79; PULSE 65; RESP 14; TEMP 36.3; O2SAT 100
--- NOTE | 2024-04-23 11:11 | ED.RN ---
PT REFUSING TO GET IN THE BED, I DONT WANT TO GET IN THE BED.
[2024-04-23 12:09] VITALS: BP 129/82; PULSE 70; RESP 18; TEMP 36.4; O2SAT 95
--- NOTE | 2024-04-23 12:09 | CT_ITS ---
CT angiogram of the abdominal aorta with bilateral lower extremity runoff with 3-dimensional reconstructions, with MIP reconstructions Clinical history: ischemic toe Technique: Multiple helical CT images were obtained from the domes the diaphragms to level of feet after intravenous administration of iodinated contrast with transaxial, coronal and sagittal multiplanar reconstructions. On a separate workstation, 3-dimensional reconstructions were obtained of the arterial vasculature using volume rendering technique and maximal intensity projection technique as per departmental protocol. The protocol utilizes one or more of the following dose reduction techniques: automated exposure control, adjustment of mA and/or kV according to patient size,and/or use of iterative reconstruction technique. RADIATION DOSAGE (If Supplied By Facility): CTDIvol = ( 30.37 ) mGy, DLP = ( 1341 ) mGycm COMPARISON: CT scan of the abdomen and pelvis of 03/21/2024 FINDINGS: ABDOMEN / PELVIS: The visualized portions of the liver are unremarkable. Mild hepatosplenomegaly. The pancreas is grossly unremarkable.. Status post cholecystectomy. The kidneys are unremarkable. Sigmoid diverticulosis without evidence of acute diverticulitis. Normal in caliber small bowel loops.. Prominent prostate. Small bilateral inguinal hernias containing fat. VASCULAR STRUCTURES: There appears to be good opacification and patency of the visualized abdominal aorta. There appears to be good opacification and patency of the celiac trunk, superior mesenteric artery. There appears to be good opacification and patency noted of the RIGHT and LEFT renal arteries. There appears to be good opacification and patency noted of the inferior mesenteric artery. ARTERIAL STRUCTURES OF THE RIGHT LOWER EXTREMITY: Common iliac artery: Appears patent with good opacification. External iliac artery: Appears patent with good opacification. Internal iliac arteries: Appears patent with good opacification. Common femoral artery: Appears patent with good opacification. Superficial femoral arteries: Appear patent with good opacification. Popliteal artery: Atherosclerotic calcifications with moderate to severe narrowing of the popliteal artery reconstituted distally. Anterior tibial artery: Not clearly visualized beyond its origin. The coronal and sagittal reconstruction images are markedly limited. Posterior tibial artery: Faintly visualized the level of the ankle. Peroneal artery: Faintly visualized to the level of the ankle. ARTERIAL STRUCTURES OF THE LEFT LOWER EXTREMITY: Common iliac artery: Appears patent with good opacification. External iliac artery: Appears patent with good opacification. Internal iliac arteries: Mild atherosclerotic calcifications without significant stenosis.. Common femoral artery: Appears patent with good opacification. Superficial femoral arteries: Appear patent with good opacification. Popliteal artery: Mild atherosclerotic calcifications with mild stenosis. Anterior tibial artery: Visualized at the level of the ankle. Calcifications in the tibial trunk. Posterior tibial artery: Visualized at the level of the foot. Peroneal artery: Visualized to the level of the foot. CT/CTA Abd w/Runoff W/WO Contrast IMPRESSION: 1. Unremarkable common and superficial femoral arteries bilaterally. 2. Moderate to severe stenosis of the right popliteal artery. 3. Two-vessel runoff into the visualized to the right lower leg through the posterior tibial and peroneal arteries visualized to the level of the ankle. 4. The right anterior tibial artery appears to be occluded distal to its origin. 5. 3 vessel runoff to the left lower leg with faint visualization of the anterior tibial arteries to the level of the ankle. The dorsalis pedis artery is not visualized. Electronically Signed: Lloyd Donovan MD at 14:10 EDT ,
--- NOTE | 2024-04-23 12:18 | ED.VIS.LOWEX ---
HPI History of Present Illness Chief Complaint: Lower Extremity Injury Informant: patient Narrative Narrative: Patient is 73-year-old male with history of hypertension, hyperlipidemia and tobacco use presenting with discoloration and pain of his right foot. Patient noted some black color changes to the top of his right great toe recently. He cannot give me an exact timeframe. He also was recently his right foot has been feeling more cold and almost numb however he still able to feel it. He does not report any increased pain with ambulation. He saw his primary care doctor who was concerned and sent him to the emergency room for further evaluation. He denies any fever or chills. States he recently had of venous duplex of his right leg because he is been having leg issues. No other complaints or concerns reported at this time. [facility] Medical History Hypertension Home Medications ?Medication ?Instructions ?Recorded ?Last Taken ?Type bupropion HCl 200 mg tablet,12 hr 200 mg PO BID DEPRESSION 03/21/24 Unknown History sustained-release lisinopril 40 mg tablet 40 mg PO BID BLOOD PRESSURE 03/21/24 04/23/24 History metoprolol succinate 50 mg 50 mg PO QHS BLOOD PRESSURE 03/21/24 04/22/24 History tablet,extended release 24 hr simvastatin 5 mg tablet 5 mg PO QPM CHOLESTEROL 03/21/24 04/22/24 History amlodipine 5 mg tablet 5 mg PO DAILY BLOOD PRESSURE 04/23/24 04/23/24 History aspirin 81 mg tablet,delayed 81 mg PO DAILY #30 tabs 04/23/24 Unknown Rx release cilostazol 100 mg tablet 100 mg PO BID #60 tabs 04/23/24 Unknown Rx diphenoxylate-atropine 2.5 2 tab PO Q6H PRN DIARRHEA 04/23/24 04/23/24 History mg-0.025 mg tablet nabumetone 500 mg tablet 500 mg PO BID PRN JOINT/BACK PAIN 04/23/24 Unknown History nitroglycerin 2 % transdermal 0.5 inch transdermal BID PRN pain 04/23/24 Unknown Rx ointment #30 grams prednisone 10 mg tablet See Taper PO DAILY STEROID 04/23/24 04/23/24 History rivaroxaban 2.5 mg tablet (Xarelto) 2.5 mg PO BID #60 tabs 04/23/24 Unknown Rx Allergy/AdvReac Type Severity Reaction Status Date / Time No Known Allergies Allergy Verified 04/23/24 11:05 Family History Other Cancer Surgical History Hx of cholecystectomy Social History Smoking Status: Current every day smoker tobacco type: cigarettes ROS ROS ED Constitutional Constitutional ED: Denies chills or fever(s) Cardiovascular Cardiovascular: Denies chest pain Respiratory/Chest Respiratory/Chest: Denies cough Gastrointestinal Gastrointestinal: Denies nausea or vomiting Musculoskeletal Musculoskeletal: Reports back pain and other Details: 1 month of worsening right calf pain. A couple weeks of increased right great toe pain ; Denies arthralgias or myalgias Integumentary Reports other Details: Black discoloration of the tip of the right great toe Neurologic Neurologic: Reports paresthesias RLE (Right great toe); Denies weakness Hematologic/Lymphatic Hematologic/Lymphatic: Denies easy bleeding or easy bruising EXAM Physical Exam Const Vital Signs: 04/23/24 11:04 04/23/24 11:04 04/23/24 12:09 Temperature 97.4 F L 97.4 F L 97.5 F L Temperature Source Temporal Temporal Temporal Pulse Rate 65 65 70 Respiratory Rate 14 14 18 Blood Pressure 137/79 H 137/79 H 129/82 H Blood Pressure Mean 98 98 97 Pulse Ox 100 100 95 Oxygen Delivery Method Room Air Room Air Room Air 04/23/24 13:00 04/23/24 14:00 04/23/24 17:12 Temperature 97.5 F L 98.2 F 98.4 F Temperature Source Temporal Temporal Pulse Rate 71 75 72 Respiratory Rate 18 18 16 Blood Pressure 142/78 H 135/81 H 132/74 H Blood Pressure Mean 99 99 93 Pulse Ox 98 98 97 Oxygen Delivery Method Room Air Room Air Positive well nourished and well developed General Appearance ED: well developed HEENT Reports moist mucous membranes Neck full ROM and supple Chest Wall inspection of chest normal and palpation of chest normal Resp normal respiratory effort Cardio regular rate and regular rhythm Extremity full ROM Extremity Narrative: No obvious deformity. Patient has some increased pallor of the right lower extremity compared to the left. He has some thickening of the skin of the distal right great toe with black almost embolic appearing discoloration. Range of motion is preserved. No joint effusion appreciated. Patient does not have palpable pulses of the right DP or PT but he has monophasic dopplerable pulses. He has 2+ pulses on the left foot. Neuro oriented x3 Sensorium / Orientation: alert Motor Exam: Negative for general weakness Psych mental status grossly normal Skin Skin Narrative: Discoloration of the distal aspect of the right great toe concerning for embolic disease MDM MDM MDM Narrative Medical decision making narrative: Patient is evaluated for discoloration increased discomfort of his right great toe. Physical exam is concerning for arterial insufficiency versus embolic disease. Lab work is obtained as well as a CT angiogram of the lower extremities. He has a mild leukocytosis as well as a mildly elevated lactate of 2.4 however I suspect this is more from ischemia and not acute infection. Lab work otherwise largely normal. CT with runoff he has moderate to severe stenosis of the right popliteal artery, two-vessel runoff into the visualized right lower leg to the posterior tibial and peroneal arteries to the level of the ankle and then the right anterior tibial artery appears to be occluded distal to its origin. Case is discussed with vascular surgery. We suspect this is more subacute and not an acute occlusion. Patient is evaluated by vascular surgery PA. Patient states he would prefer outpatient treatment and evaluation. He will be started on Xarelto, Pletal and 81 mg aspirins also given a prescription for Nitropaste for pain. Will follow-up outpatient for angiography with Dr. Bustos. Patient is agreeable this plan of care. Is given return precautions. Is discharged home in stable condition. History & Record Review Additional record(s) reviewed:: Prior outpatient record (Recent venous duplex of the right lower extremity-negative for DVT) Lab Data Attestation: I reviewed the patient's lab results. Labs: Laboratory Results - last 24 hr 04/23/24 12:05 WBC 14.5 H RBC 4.85 Hgb 15.3 Hct 45.9 MCV 94.6 H MCH 31.5 MCHC 33.3 RDW Std Deviation 41.1 RDW Coeff of Traci 11.8 Plt Count 369 MPV 10.1 Neut % (Auto) Not Reportable Absolute Neuts (auto) 12.3 H Absolute Lymphs (auto) 1.16 Total Counted 100 Neutrophils % (Manual) 84 H Band Neutrophils % 1 Lymphocytes % (Manual) 8 L Monocytes % (Manual) 5 Basophils % (Manual) 1 Myelocytes % 1 H Diff Path Review May foll Platelet Estimate ADEQUATE RBC Morphology NORM C+C ESR 3 PT 14.6 INR 1.1 APTT 24.1 Sodium 137 Potassium 4.5 Chloride 105 Carbon Dioxide 25.0 Anion Gap 7 BUN 23 H Creatinine 1.33 H Est GFR (MDRD) Af Amer 68 Est GFR (MDRD) Non-Af 56 L BUN/Creatinine Ratio 17.3 Glucose 141 H Lactic Acid 2.4 H* Calcium 9.4 C-React Prot Ext Range < 2.90 Radiography Diagnostic Testing: Clinical Impression(s) from Imaging Studies Abdomen/Pelvis CTA 04/23/24 12:09 IMPRESSION: 1. Unremarkable common and superficial femoral arteries bilaterally. 2. Moderate to severe stenosis of the right popliteal artery. 3. Two-vessel runoff into the visualized to the right lower leg through the posterior tibial and peroneal arteries visualized to the level of the ankle. 4. The right anterior tibial artery appears to be occluded distal to its origin. 5. 3 vessel runoff to the left lower leg with faint visualization of the anterior tibial arteries to the level of the ankle. The dorsalis pedis artery is not visualized. Electronically Signed: Lloyd Donovan MD at 14:10 EDT , Management Discussion w/another healthcare provider: Cut Off Operator Scorer Discharge Plan Triage Chief Complaint: Lower Extremity Injury ED Provider: Danica Kramer Dx/Rx/DC Orders Clinical Impression: Peripheral arterial disease, Right popliteal artery occlusion, Ischemia of toe Instructions: ED Peripheral Artery Disease (PAD) Prescriptions: New Xarelto 2.5 mg tablet 2.5 mg PO BID Qty: 60 0RF cilostazol 100 mg tablet 100 mg PO BID Qty: 60 0RF aspirin 81 mg tablet,delayed release (DR/EC) 81 mg PO DAILY Qty: 30 0RF nitroglycerin 2 % ointment 0.5 inch transdermal BID PRN (Reason: pain) Qty: 30 0RF Rx Instructions: administer 2 doses/day (approx. 6 hrs apart); remove for 10-12 hrs per 24 hours No Action metoprolol succinate 50 mg tablet extended release 24 hr 50 mg PO QHS simvastatin 5 mg tablet 5 mg PO QPM lisinopril 40 mg tablet 40 mg PO BID bupropion HCl 200 mg tablet sustained-release 12 hr 200 mg PO BID diphenoxylate-atropine 2.5-0.025 mg tablet 2 tab PO Q6H PRN (Reason: DIARRHEA ) amlodipine 5 mg tablet 5 mg PO DAILY prednisone 10 mg tablet See Taper PO DAILY Taper: Prednisone Taper 40 mg DAILY for 7 Days 30 mg DAILY for 7 Days 20 mg DAILY for 7 Days 10 mg DAILY for 7 Days nabumetone 500 mg tablet 500 mg PO BID PRN (Reason: JOINT/BACK PAIN) Primary Care Provider: Susy Teran Referrals: Shakir Bustos MD [Med Staff - Active Staff] - 1-2 Weeks (You will be contacted in the next few days with an appointment.) Susy Teran DO [Primary Care Provider] - Activity Restrictions/Additional Instructions: Please return if you have acute change in your symptoms reviewed further concerns. Will be contacted by the vascular office in the next few days to schedule appointment in about 2 weeks for further arterial studies. Take medications as prescribed. The best thing you can do for the poor blood flow in your foot which is causing your symptoms right now is to quit smoking. If you develop any bleeding issues such as black or blood in your stool please return to the emergency room. You might notice that you bruise easier now and that is because of the new medicines. This is an expected side effect. Print Language: Tamazight Disposition Disposition: Home, Self Care Discharge Date/Time: 04/23/24 17:12
[2024-04-23 12:34] LABS: Hematocrit 45.9 % (40-54); Hemoglobin 15.3 g/dL (13.0-16.5); Mean Corp Hgb Conc 33.3 g/dL (32-36); Mean Corpuscular Hgb 31.5 pg (27.0-32.0); Mean Corpuscular Volume 94.6 fL (80-94); Mean Platelet Vol. 10.1 fl (6.2-12.0); POSITIVE COUNT YES; POSITIVE MORPHOLOGY YES; Platelet Count 369 K/mm3 (150-450); RBC Distribution Width CV 11.8 % (11.6-14.6); RBC Distribution Width SD 41.1 fl (35.1-43.9); Red Blood Count 4.85 M/mm3 (4.6-6.2); White Blood Count 14.5 K/mm3 (4.4-11.0)
[2024-04-23 12:35] LABS: Erythrocyte Sedimentation Rate 3 mm/hr (0-20)
[2024-04-23 12:36] LABS: Differential Indicated MANUAL DIFF
[2024-04-23 12:48] LABS: Anion Gap 7 (5-15); BUN 23 mg/dL (7-18); BUN/Creat Ratio 17.3 RATIO (10-20); CRP < 2.90 mg/L (0.0-3.0); Calcium,Total 9.4 mg/dL (8.5-10.1); Chloride 105 mmol/L (98-107); Creatinine, Serum 1.33 mg/dL (0.70-1.30); EST Glomerular Filtration Rate 56 mL/min (>60); Est Glom Filt Rate - Afr Amer 68 mL/min (>60); Glucose 141 mg/dL (74-106); Potassium 4.5 mmol/L (3.5-5.1); Sodium Level 137 mmol/L (136-145)
[2024-04-23 12:56] LABS: Basophil 1 % (0-1); Lymphocyte 8 % (19-41); Monocyte 5 % (0-10); Myelocyte 1 % (0-0); Neutrophil-Band 1 % (0-5); Neutrophil-Segmented 84 % (47-70); Total Cells Counted 100 (MANUAL DIFF)
[2024-04-23 12:57] LABS: Platelet Estimate ADEQUATE (ADEQ); Red Cell Morphology NORM C+C NORMAL (NORM C&C)
[2024-04-23 12:58] LABS: Absolute Lymphocyte Count 1.16 X10^3/uL (0.83-4.51); Absolute Neutrophil Count 12.3 X10^3/uL (2.0-7.7); Lymphocyte # 1.16 X10^3/ul (0.83-4.51)
[2024-04-23 13:00] VITALS: BP 142/78; PULSE 71; RESP 18; TEMP 36.4; O2SAT 98
[2024-04-23 13:12] LABS: Lactic Acid 2.4 mmol/L (0.4-1.9)
[2024-04-23 13:47] LABS: International Normalized Ratio 1.1; Partial Thromboplast Time 24.1 Seconds (24.1-36.2); Prothrombin Time (Protime)PT. 14.6 SECONDS (11.7-14.9)
[2024-04-23 14:00] VITALS: BP 135/81; PULSE 75; RESP 18; TEMP 36.8; O2SAT 98
--- NOTE | 2024-04-23 16:20 | EX.PCM.CON.S ---
Assessment & Plan Assessment/Plan (1) Atherosclerosis of right lower extremity: PLAN: CTA revealed severe narrowing to total occlusion of the R popliteal artery with distal reconstitution and given symptoms stable x 1 month seems to be subacute in nature. Discussed findings with patient and his sister. He does prefer outpatient management and given stability of his symptoms this is reasonable. Plan to initiate medical management with Xarelto and ASA daily. For improved symptomatic management, initiate pletal and NitroBid ointment which can be applied topically to the affected toe as needed. Will arrange outpatient arterial studies, outpatient RLE angiogram, and office visit. Patient and his sister were agreeable with this plan. He was provided with office contact information should he have any questions or concerns. Return precautions were discussed and he acknowledged understanding. HPI Consult Data Date of Consult: 04/23/24 HPI Narrative HPI Narrative: HONORIO BARKLEY, is a 73 M who presents with primary complaint of R great toe coolness/numbness, discoloration, and intermittent pain. He reports that for at least 1 month he has noticed intermittent cold feeling and numbness and has noticed a black discoloration on the top of his R great toe. He also intermittently will have some pain in his toe with walking. He denies any rest pain. He does not have any wounds. He does note he also has some coolness/numbness in his L great toe but to a lesser degree and without any associated discoloration. He also complains of intermittent calf cramping at short distances which has been ongoing for months to years and he has attributed it to his known spinal stenosis. He denies any prior vascular surgical intervention. He denies any recent sudden worsening of his symptoms, he feels that his symptoms are at his baseline for the last month or so. He had a CTA which showed severely narrowed to occluded R popliteal artery with distal reconstitution with two vessel runoff into the R foot. His sister was also present and helps to supplement history. She helps to coordinate his healthcare. [facility] Medical History Hypertension Home Medications ?Medication ?Instructions ?Recorded ?Last Taken ?Type bupropion HCl 200 mg tablet,12 hr 200 mg PO BID DEPRESSION 03/21/24 Unknown History sustained-release lisinopril 40 mg tablet 40 mg PO BID BLOOD PRESSURE 03/21/24 04/23/24 History metoprolol succinate 50 mg 50 mg PO QHS BLOOD PRESSURE 03/21/24 04/22/24 History tablet,extended release 24 hr simvastatin 5 mg tablet 5 mg PO QPM CHOLESTEROL 03/21/24 04/22/24 History amlodipine 5 mg tablet 5 mg PO DAILY BLOOD PRESSURE 04/23/24 04/23/24 History aspirin 81 mg tablet,delayed 81 mg PO DAILY #30 tabs 04/23/24 Unknown Rx release cilostazol 100 mg tablet 100 mg PO BID #60 tabs 04/23/24 Unknown Rx diphenoxylate-atropine 2.5 2 tab PO Q6H PRN DIARRHEA 04/23/24 04/23/24 History mg-0.025 mg tablet nabumetone 500 mg tablet 500 mg PO BID PRN JOINT/BACK PAIN 04/23/24 Unknown History nitroglycerin 2 % transdermal 0.5 inch transdermal BID PRN pain 04/23/24 Unknown Rx ointment #30 grams prednisone 10 mg tablet See Taper PO DAILY STEROID 04/23/24 04/23/24 History rivaroxaban 2.5 mg tablet (Xarelto) 2.5 mg PO BID #60 tabs 04/23/24 Unknown Rx Allergy/AdvReac Type Severity Reaction Status Date / Time No Known Allergies Allergy Verified 04/23/24 11:05 Family History Other Cancer Surgical History Hx of cholecystectomy Social History Smoking Status: Current every day smoker tobacco type: cigarettes Physical Exam Const alert, oriented x3 and no apparent distress General Appearance: cooperative and comfortable HEENT normocephalic, head/scalp atraumatic, hearing grossly normal bilaterally and external ears normal Eyes EOMs intact bilaterally General Eye: normal appearance of both eyes Resp normal respiratory effort, no retractions and no use of accessory muscles Effort and Inspection: able to speak in complete sentences Cardio regular rate and regular rhythm Extremity Extremity Narrative: R DP and PT with monophasic doppler signal. Motor and sensation intact.The tip of the 1st toe has an area of black discoloration with skin integrity intact. The remainder of the R toes are without discoloration Skin no rashes or lesions noted Neuro oriented x3, CN's II-XII intact bilaterally, moves all extremities and no focal motor deficits Speech: speech normal Psych mental status grossly normal, cooperative, affect normal, speech normal and activity/motor behavior normal Attitude: calm and engaged Activity / Motor Behavior: appropriate eye contact Lab / Micro Data 04/23/24 12:05 04/23/24 12:05 Labs: Laboratory Results - last 24 hr 04/23/24 12:05: WBC 14.5 H, RBC 4.85, Hgb 15.3, Hct 45.9, MCV 94.6 H, MCH 31.5, MCHC 33.3, RDW Std Deviation 41.1, RDW Coeff of Traci 11.8, Plt Count 369, MPV 10.1, Neut % (Auto) Not Reportable, Absolute Neuts (auto) 12.3 H, Absolute Lymphs (auto) 1.16, Total Counted 100, Neutrophils % (Manual) 84 H, Band Neutrophils % 1, Lymphocytes % (Manual) 8 L, Monocytes % (Manual) 5, Basophils % (Manual) 1, Myelocytes % 1 H, Diff Path Review May , Platelet Estimate ADEQUATE, RBC Morphology NORM C+C, ESR 3, PT 14.6, INR 1.1, APTT 24.1, Sodium 137, Potassium 4.5, Chloride 105, Carbon Dioxide 25.0, Anion Gap 7, BUN 23 H, Creatinine 1.33 H, Est GFR (MDRD) Af Amer 68, Est GFR (MDRD) Non-Af 56 L, BUN/Creatinine Ratio 17.3, Glucose 141 H, Lactic Acid 2.4 H*, Calcium 9.4, C-React Prot Ext Range < 2.90 Imaging Radiology Impression Abdomen/Pelvis CTA 04/23/24 12:09 IMPRESSION: 1. Unremarkable common and superficial femoral arteries bilaterally. 2. Moderate to severe stenosis of the right popliteal artery. 3. Two-vessel runoff into the visualized to the right lower leg through the posterior tibial and peroneal arteries visualized to the level of the ankle. 4. The right anterior tibial artery appears to be occluded distal to its origin. 5. 3 vessel runoff to the left lower leg with faint visualization of the anterior tibial arteries to the level of the ankle. The dorsalis pedis artery is not visualized. Electronically Signed: Lloyd Donovan MD at 14:10 EDT ,
[2024-04-23 16:25] LABS: Reflex Lactate? Y
[2024-04-23 17:12] VITALS: BP 132/74; PULSE 72; RESP 16; TEMP 36.9; O2SAT 97
[2024-04-24 16:13] LABS: Pathologist Review Reviewed
== END 2024-04-23 17:12 | disposition home or self-care (01) ==
PROVIDERS: Emergency Provider Emergency Medicine; PCP Family Medicine; Visit Provider Emergency Medicine
DX: I70.201 Unspecified atherosclerosis of native arteries of extremities, right leg (principal); E78.5 Hyperlipidemia, unspecified; Z79.02 Long term (current) use of antithrombotics/antiplatelets; F17.210 Nicotine dependence, cigarettes, uncomplicated; I10 Essential (primary) hypertension; Z79.899 Other long term (current) drug therapy; Z79.82 Long term (current) use of aspirin; R20.2 Paresthesia of skin; I99.8 Other disorder of circulatory system; R20.0 Anesthesia of skin; I77.1 Stricture of artery; I70.92 Chronic total occlusion of artery of the extremities
CPT/HCPCS: 75635; 80048; 83605; 85025; 85610; 85652; 85730; 86140; 99284; Q9967; A4216

== ENCOUNTER 2024-05-14 12:08 | Day surgery (SDC) | payer MEDICARE, OTHER, SELFPAY ==
[2024-05-14] VITALS (8 sets, daily range): BP systolic 130–138; BP diastolic 77–88; PULSE 72–88; RESP 16; TEMP 36.2–36.8; O2SAT 93–100; BMI 26.4
[2024-05-14] MEDS: Lactated Ringers 1,000 ML 15 ML IV (12:48)
--- NOTE | 2024-05-14 13:11 | PCM.PRE.AN2 ---
ASA Classification* ASA Classification ASA Classification: 3 Assessment & Plan Anesthesia* Anesthesia Assessment Anesthesia Assessment: Discussed sedation and/or anesthesia options, risks, benefits, and alternatives with patient/parents/legal guardian/POA. Questions invited. The patient/parents/legal guardian/POA seems to understand and agrees to proceed with anesthesia plan. Reviewed the physical assessment, medical history, allergy history and patient home medications list prior to surgery/procedure/anesthetic and documented any changes. Performed airway and anesthesia risk assessments. Anesthesia Type Anesthesia Type: MAC History Source History Obtained from:: Patient and Chart Anesthesia Focused Assessment* Temperature: 97.8 F Pulse Rate: 79 Blood Pressure: 138/77 Respiratory Rate: 16 Pulse Ox: 95 Oxygen Delivery Method: Room Air Airway Assessment Mouth opens: >3 cm Mallampati Score: IV Teeth Condition: Caps/Crowns (Patient was front 4 teeth are implants. On the top) Neck Range of motion (ROM): Limited ROM Pertinent Findings EKG Pertinent Findings:: April 28, 2023. Normal sinus rhythm. Nonspecific ST and T wave abnormalities. Prolonged QT. ECHO Pertinent Findings:: April 29, 2023. Ejection fraction 65%. Normal valves. Focused Labs Anesthesia Preop lab: CBC WBC 14.5 K/mm3 (4.4-11.0) H 04/23/24 12:05 RBC 4.85 M/mm3 (4.6-6.2) 04/23/24 12:05 Hgb 15.3 g/dL (13.0-16.5) 04/23/24 12:05 Hct 45.9 % (40-54) 04/23/24 12:05 Plt Count 369 K/mm3 (150-450) 04/23/24 12:05 CHEMISTRY Potassium 4.5 mmol/L (3.5-5.1) 04/23/24 12:05 Sodium 137 mmol/L (136-145) 04/23/24 12:05 Magnesium 2.4 mg/dL (1.6-2.6) 04/30/23 06:05 Phosphorus 3.0 mg/dL (2.5-4.9) 04/30/23 06:05 BUN 23 mg/dL (7-18) H 04/23/24 12:05 Creatinine 1.33 mg/dL (0.70-1.30) H 04/23/24 12:05 Glucose 141 mg/dL (74-106) H 04/23/24 12:05 TSH 1.89 uIU/mL (0.358-3.74) 05/24/23 16:41 COAG PT 14.6 SECONDS (11.7-14.9) 04/23/24 12:05 Pre-Assessment Diagnosis/Proposed Procedure Planned Operative Procedure(s): CSCOPE Anesthesia History Anesthesia History - audio engineer: Anesthesia History - audio engineer Hx Hospitalization No 05/09/24 14:36 Any Problems With Anesthesia No 05/09/24 14:36 Cholinesterase deficiency No 05/09/24 14:36 You/Your Family Experience No 05/09/24 14:36 fever (hyperthermia) with Relationship Recent Exposure to Contagious No 05/14/24 12:30 Disease Does patient have nerve No 05/09/24 14:36 stimulator Patient instructed to have device shut off --Does patient have Pacemaker No 05/14/24 12:30 or ICD? When Was Last Pacemaker Check QUESTION #4 FULL TEXT: You/Your Family Experience fever (hyperthermia) with Anesthesia Last Oral Intake Last Oral intake: Last Oral Intake NPO since 08:00 05/14/24 12:30 Meds taken in AM with sips of Yes 05/14/24 12:30 water? Meds patient instructed to take am of surgery Any additional information?: Yes NPO since: 10:00 (Popsicle at 10:00.) PONV PONV - audio engineer: PONV - audio engineer Female No 05/09/24 14:36 HX of Motion Sickness No 05/09/24 14:36 HX of N/V After Surgery No 05/09/24 14:36 Non-Smoker No 05/09/24 14:36 Duration of Surgery greater No 05/09/24 14:36 than 60 minutes Number of Risk Factors PONV Score Height & Weight Height & Weight: Anesthesia: Height & Weight Height 5 ft 8 in 05/14/24 12:30 Weight: 78.828 kg 05/14/24 12:30 Body Mass Index (BMI) 26.4 05/14/24 12:30 Respiratory Assessment Respiratory Assessment - audio engineer: Respiratory Tract Infection Hx - audio engineer Hx Respiratory Tract Infection No 05/09/24 14:36 STOP Sleep Apnea STOP Sleep Apnea - audio engineer: STOP Sleep Apnea - audio engineer Hx Hypertension Yes: CONTROLLED WITH MEDS 05/09/24 14:36 Hx Sleep Apnea No 05/09/24 14:36 CPAP BIPAP Do you snore loudly (louder No 05/09/24 14:36 than talking or can be heard Do you often feel tired/ Yes 05/09/24 14:36 fatigued/ sleepy during daytime? Has anyone observed you stop No 05/09/24 14:36 breathing during sleep? STOP Results Positive 05/09/24 14:36 QUESTION #5 FULL TEXT : Do you snore loudly (louder than talking or can be heard through closed doors)? Tobacco Use History Tobacco Use History - audio engineer: Tobacco Use History - audio engineer Tobacco Use Smoking Status Current every day smoker 05/09/24 14:36 Hx Tobacco Use Yes 05/09/24 14:36 Years Smoking Packs Smoked per Day Smoking Cessation Date was within the last 15 years Hx Smoking Cessation Date Hx Smoking Cessation Counseling Any additional information?: Yes Hx Tobacco Use: Yes (Patient smoked today.) Hematologic Medial History Hematologic Hx - audio engineer: Hematologic Medical Hx - manager multimedia Hx of Blood Transfusion No 05/09/24 14:36 Hx of Transfusion in last 3 No 05/09/24 14:36 Months Date of Last Transfusion (if within last 3 months) Ever experience any problems No 05/09/24 14:36 with transfusion(s)? Specify any problems Hx of Preganancy in last 3 N/A 05/09/24 14:36 Months Nurse Filling Out Transfusion DSCHRIBER 05/09/24 14:36 & Questions: Date: 05/09/24 05/09/24 14:36 Time: 14:38 05/09/24 14:36 Patient unable to answer at this time (ie. confused, unrespo /Reproduction History /Reproductive History - audio engineer: /Reproductive Hx- audio engineer Hx Now No 05/09/24 14:36 Gestational Age (in weeks): EDC: Hx Hx Para Hx Section SAB No 05/09/24 14:36 Active Medications Active Medications: Current Medications Generic Name Dose Route Start Last Admin Trade Name Freq PRN Reason Stop Dose Admin Lactated Ringer's 1,000 mls @ 15 mls/hr 05/14/24 12:30 05/14/24 12:48 IV 15 mls/hr .Q48H MAKI Administration PFSH Medical History High cholesterol Depression Wears glasses Forgetfulness Anxiety Alcohol use Ambulates with cane Arthritis History of rheumatic fever History of renal disease PVD (peripheral vascular disease) with claudication Back pain Injury of head and neck Alteration in bowel elimination: incontinence Gastric reflux Smoker History of pain when walking History of echocardiogram Hx of pyloric stenosis Hypertension Home Medications ?Medication ?Instructions ?Recorded ?Last Taken ?Type bupropion HCl 200 mg tablet,12 hr 200 mg PO BID DEPRESSION 03/21/24 05/14/24 History sustained-release lisinopril 40 mg tablet 40 mg PO BID BLOOD PRESSURE 03/21/24 05/14/24 History metoprolol succinate 50 mg 50 mg PO QHS BLOOD PRESSURE 03/21/24 04/22/24 History tablet,extended release 24 hr simvastatin 5 mg tablet 5 mg PO QPM CHOLESTEROL 03/21/24 04/22/24 History amlodipine 5 mg tablet 5 mg PO QHS BLOOD PRESSURE 04/23/24 04/23/24 History aspirin 81 mg tablet,delayed 81 mg PO DAILY #30 tabs 04/23/24 Unknown Rx release cilostazol 100 mg tablet 100 mg PO BID #60 tabs 04/23/24 Unknown Rx diphenoxylate-atropine 2.5 2 tab PO Q6H PRN DIARRHEA 04/23/24 04/23/24 History mg-0.025 mg tablet nabumetone 500 mg tablet 500 mg PO BID PRN JOINT/BACK PAIN 04/23/24 Unknown History nitroglycerin 2 % transdermal 0.5 inch transdermal BID PRN pain 04/23/24 Unknown Rx ointment #30 grams rivaroxaban 2.5 mg tablet (Xarelto) 2.5 mg PO BID #60 tabs 04/23/24 Unknown Rx Allergy/AdvReac Type Severity Reaction Status Date / Time No Known Allergies Allergy Verified 05/14/24 12:29 Family History Other Cancer Surgical History Hx of colonoscopy Hx of cholecystectomy Social History Smoking Status: Current every day smoker tobacco type: cigarettes Review of Systems (Anesthesia) ROS Narrative System reviewed and no additional complaints, except as documented.
--- NOTE | 2024-05-14 13:15 | COLBX_PTH ---
PATIENT: HONORIO BARKLEY LOC: EN U#:[id number] AGE/SX: 73/M ROOM: RE05/14/[address]: Dr. Toby Corley DO : 1950 BED: DIS: 05/14/2024 SPEC #: [id number] RECD: 05/15/24 08:01 STATUS: NASEEM AUDRA #: [id number] LYNNE: 05/14/24 13:[address]: Toby Corley DEPT: SURGICAL PATHOLOGY RECD BY: Earnestine Gupta ENTERED: 05/15/24 11:33 SP TYPE: COLON BX DARÍO DR: Dr. Susy Teran DO Tissues: A - COLON BIOPSY B - COLON BIOPSY C - Rectum, NOS Procedures: Trichrome (control) Special Stain Group I Surgery Specimen Level IV HEADER OPERATION: Colonoscopy with polypectomy and biopsies PRE-OP DIAGNOSIS: Diarrhea TISSUE SUBMITTED: A- Random colon biopsy, B- Hepatic flexure polyp biopsy, C- Rectum biopsy MICROSCOPIC DIAGNOSIS A. Colon, random biopsy: Lymphocytic colitis. See comment. B. Colonic polyp at hepatic flexure, biopsy: Tubular adenoma. Lymphocytic colitis. C. Rectum, biopsy: Lymphocytic colitis. BISHNU/ 05/16/2024 COMMENT A, B, C. Trichrome stain with matched control was used in the evaluation of this case. MICROSCOPIC DESCRIPTION Slides are reviewed. GROSS DESCRIPTION A. Received in fixative is one container labeled with the patient's name and designated Random colon biopsy. The specimen consists of multiple irregular fragments of light day soft tissue that in aggregate measure 1.0 x 0.5 x 0.1 cm. The specimen is totally submitted in one cassette. B. Received in fixative is one container labeled with the patient's name and designated Hepatic flexure polyp biopsy. The specimen consists of one irregular fragment of light day soft tissue that measures 0.6 x 0.3 x 0.1 cm. The specimen is totally submitted in one cassette. C. Received in fixative is one container labeled with the patient's name and designated Rectum biopsy. The specimen consists of two irregular fragments of light day soft tissue that in aggregate measure 0.8 x 0.4 x 0.1 cm. The specimen is totally submitted in one cassette. JENAE/ 05/15/2024 TC:3 CPT:28385v5,98830b4
--- NOTE | 2024-05-14 13:41 | PCM.HP.BLA ---
History and Physical Date of Admission: 05/14/24 HONORIO BARKLEY, is a 73 M who presents to the office today for initial consult. abd/pelvis CT 03.21.24 Findings suggestive of colitis of the rectosigmoid colon as well as the cecum. There is also evidence of sigmoid diverticulosis. *BGI established 05.02.24 pt presents with diarrhea for the past few months. Pt reports up to 6 bm per day; denies blood in his stool. Pt reports that he wakes up most mornings with HB. ROS Const Constitutional: Positive for fatigue; No fever(s) or weight change ENT ENT: No difficulty swallowing Cardio Cardiology: Positive for leg pain with exertion Gastro GI: Positive for bloating, change in bowel habits, diarrhea, heartburn and excessive flatus; No abdominal pain, belching, change in stool character, coffee ground emesis, constipation, cramping, difficulty swallowing, feeling full early, incontinent of stools, Vomiting blood/hematemesis, Blood in stool, loose stools, Black,tarry stools, nausea/dyspepsia, pain with swallowing, vomiting or other Musc Musculoskeletal: Positive for joint pain, back pain, muscle weakness, stiffness, Arthritis, leg pain at night and leg pain with exertion Skin Skin: No yellowing of the eye or itchy eyes Psych Psychiatric: No anxiety and No depression Endo Endocrine: Positive for fatigue; No weight change Aller/Imm Allergy/Immunologic: No itchy eyes Wil/Lymp Hematologic/Lymphatic: No easy bleeding or easy bruising Exam Const General: cooperative and comfortable Nutritional Appearance: average body habitus and well nourished [facility] Head: normal to inspection Ears: hearing grossly normal bilaterally Nose: external nose normal Face and sinus: normal facial exam Mouth: oral mucosae normal Throat: posterior oropharynx normal Eyes General: appearance normal, both eyes and all related structures Neck Neck: normal visual inspection Chest Chest palpation & inspection: normal inspection of the chest and normal palpation of entire chest wall Resp Effort & Inspection: normal respiratory effort Auscultation: Bilateral: Clear to Auscultation Cardio Palpation: normal PMI Rate: regular rate Rhythm: regular rhythm GI Inspection: normal to inspection Auscultation: normal bowel sounds Percussion: normal to percussion Palpation: no hepatosplenomegaly Skin General: no rashes or lesions noted Neuro General: patient alert Extrem General: normal to inspection Psych Affect: normal affect Assessment and Plan Assessment and Plan (1) Diarrhea: Status: Inactive Plan: 73 yo presented to the ED with diarrhea that has been constant for the past 5 weeks. Patient was seen in the ER approximately 2 weeks ago and was diagnosed with colitis at that time. Patient had a CT scan which showed that. Patient was given prescriptions for Cipro and Flagyl. Patient states he completed the antibiotics and his diarrhea seemed to improve with this. Patient states that after he completed the antibiotics, his diarrhea returned. Patient denies any melena or hematochezia. Patient states his stools are just watery. Patient denies any nausea or vomiting. Patient denies any abdominal pain. The differential diagnosis for his acute diarrhea would be postinfectious diarrhea, microscopic colitis, lymphocytic colitis and less likely ulcerative colitis. He will undergo colonoscopy and at that time we will check stool cultures, repeat C. difficile, stool white blood cells. Will also evaluate the small bowel and perform random colon biopsies throughout the colon. I do not see any medicines that he is taking now that would be associated with diarrhea. Patient is okay with this plan. I have examined the patient and the H&P has been reviewed. There are no clinical changes since date of exam.
--- NOTE | 2024-05-14 14:18 | OP.CCLET_ITS ---
05/14/2024 Susy Teran [address] [facility] [place] [address] Re : Colonoscopy procedure for Chito Javed Dear Dr. Teran This procedure was performed on Tuesday, May 14, 2024. My impressions and recommendations are as follows: Impressions : - Preparation of the colon was fair. - Congested mucosa in the entire examined colon. Biopsied. - One 5 mm polyp at the hepatic flexure, removed with a jumbo cold forceps. Resected and retrieved. - Stool in the recto-sigmoid colon, in the sigmoid colon, in the descending colon and in the transverse colon. - Diverticulosis in the recto-sigmoid colon, in the sigmoid colon and in the descending colon. - The examined portion of the ileum was normal. Recommendations : - Discharge patient to home. - Resume previous diet. - Continue present medications. - Await pathology results. - Repeat colonoscopy in 5 years for surveillance. My findings are described in the full procedure note, which is enclosed. If I can be of further assistance, please feel free to contact me at . Sincerely, Toby Corley, 05/14/2024 2:17:22 PM This report has been signed electronically.
--- NOTE | 2024-05-14 14:18 | OP.COLON_ITS ---
Patient Name: Chito Javed Procedure Date: 05/14/2024 1:37 PM Date of : 1950 Age: 73 Procedure: Colonoscopy Indications: Clinically significant diarrhea of unexplained origin Providers: Toby Corley DO Referring MD: Toby Corley DO Medicines: Monitored Anesthesia Care Patient Profile: This is a 73 year old male. Refer to note in patient chart for documentation of history and physical. Last Colonoscopy: none. The patient's first colonoscopy is today. Complications: No immediate complications. Procedure: Pre-Anesthesia Assessment: - Prior to the procedure, a History and Physical was performed, and patient medications and allergies were reviewed. The patient is competent. The risks and benefits of the procedure and the sedation options and risks were discussed with the patient. All questions were answered and informed consent was obtained. Patient identification and proposed procedure were verified by the physician in the pre-procedure area. Mental Status Examination: alert and oriented. Airway Examination: normal oropharyngeal airway and neck mobility. Respiratory Examination: clear to auscultation. CV Examination: normal. Prophylactic Antibiotics: The patient does not require prophylactic antibiotics. Prior Anticoagulants: The patient has taken no anticoagulant or antiplatelet agents except for NSAID medication. ASA Grade Assessment: II - A patient with mild systemic disease. After reviewing the risks and benefits, the patient was deemed in satisfactory condition to undergo the procedure. The anesthesia plan was to use monitored anesthesia care (MAC). Immediately prior to administration of medications, the patient was re-assessed for adequacy to receive sedatives. The heart rate, respiratory rate, oxygen saturations, blood pressure, adequacy of pulmonary ventilation, and response to care were monitored throughout the procedure. The physical status of the patient was re-assessed after the procedure. After I obtained informed consent, the scope was passed under direct vision. Throughout the procedure, the patient's blood pressure, pulse, and oxygen saturations were monitored continuously. The pediatric colonoscope was introduced through the anus and advanced to the cecum, identified by appendiceal orifice and ileocecal valve. The colonoscopy was performed without difficulty. The patient tolerated the procedure well. The quality of the bowel preparation was fair. The ileocecal valve, appendiceal orifice, and rectum were photographed. Scope In: 1:50:03 PM Scope Withdrawal Time 0 hours 18 minutes 23 seconds Scope Out: 2:11:08 PM Total Procedure Duration Time 0 hours 21 minutes 5 seconds Findings: The perianal and digital rectal examinations were normal. An area of mildly congested mucosa was found in the entire colon. Biopsies were taken with a cold forceps for histology. Verification of patient identification for the specimen was done. Estimated blood loss was minimal. A 5 mm polyp was found in the hepatic flexure. The polyp was sessile. The polyp was removed with a jumbo cold forceps. Resection and retrieval were complete. Verification of patient identification for the specimen was done. Estimated blood loss was minimal. Stool was found in the recto-sigmoid colon, in the sigmoid colon, in the descending colon and in the transverse colon. Multiple small and large-mouthed diverticula were found in the recto-sigmoid colon, sigmoid colon and descending colon. The terminal ileum appeared normal. Impression: - Preparation of the colon was fair. - Congested mucosa in the entire examined colon. Biopsied. - One 5 mm polyp at the hepatic flexure, removed with a jumbo cold forceps. Resected and retrieved. - Stool in the recto-sigmoid colon, in the sigmoid colon, in the descending colon and in the transverse colon. - Diverticulosis in the recto-sigmoid colon, in the sigmoid colon and in the descending colon. - The examined portion of the ileum was normal. Recommendation: - Discharge patient to home. - Resume previous diet. - Continue present medications. - Await pathology results. - Repeat colonoscopy in 5 years for surveillance. Procedure Code(s): --- Professional --- 36600, Colonoscopy, flexible; with biopsy, single or multiple CPT copyright 2021 [employer]. All rights reserved. The codes documented in this report are preliminary and upon superintendent nonselling review may be revised to meet current compliance requirements. Toby Corley DO 05/14/2024 2:17:22 PM This report has been signed electronically. Number of Addenda: 0 Note Initiated On: 05/14/2024 1:37 PM
--- NOTE | 2024-05-14 14:21 | PCM.POST.ANE ---
Anesthesia: Postop Eval I Current Vital Signs Temperature: 97.2 F Pulse Rate: 88 Blood Pressure: 134/86 Respiratory Rate: 16 Pulse Ox: 100 Oxygen Delivery Method: Room Air Assessment Airway patent: Yes Spontaneous unlabored respirations: Yes Mental status: Awake and Calm nausea: No Vomiting: No Anesthesia Complication: No Fluid Hydration Crystalloid volume administer (ml): 500 Total IV fluid infused: 500 Progress Note Anesthesia document: Postop Eval 1 completed: Yes
--- NOTE | 2024-05-14 15:04 | POSTOPAN2_ITS ---
Anesthesia Postop Eval I Sum Postop Eval Completion status Anesthesia document: Postop Eval 1 completed: Yes Anesthesia Postop Eval I Summary Anesthesia Postop Eval I Summary: Anesthesia Postop Eval I: Assessment Summary Airway patent Yes 05/14/24 14:21 COIL [email or web address] R Spontaneous unlabored Yes 05/14/24 14:21 COIL [email or web address] respirations Mental status Awake,Calm 05/14/24 14:21 COIL TIER.[email or web address] R nausea No 05/14/24 14:21 COIL TIER.[email or web address] R Vomiting No 05/14/24 14:21 COIL TIER.[email or web address] R Anesthesia Postop Eval I: Fluid Summary Crystalloid volume administer 500 05/14/24 14:21 COIL [email or web address].[email or web address] (ml) Colloids volume administered ( ml) Blood Product volume administered (ml) Total IV fluid infused 500 05/14/24 14:21 COIL [email or web address].PROSPER Anesthesia Postop Eval I: Summary Notes Anesthesia Complication No 05/14/24 14:21 COIL [email or web address].PROSPER Anesthesia Complication Comment: Post-operative progress note Anesthesia: Postop Eval II Evaluation Mental status: Awake and Calm Pain Level: 0 nausea: No Vomiting: No Complications Anesthesia Complication: No
--- NOTE | 2024-05-14 15:04 | PCM.POSTANE2 ---
Anesthesia Postop Eval I Sum Postop Eval Completion status Anesthesia document: Postop Eval 1 completed: Yes Anesthesia Postop Eval I Summary Anesthesia Postop Eval I Summary: Anesthesia Postop Eval I: Assessment Summary Airway patent Yes 05/14/24 14:21 COLON AND RECTAL SURGEON.[email or web address] R Spontaneous unlabored Yes 05/14/24 14:21 COLON AND RECTAL SURGEON.[email or web address] respirations Mental status Awake,Calm 05/14/24 14:21 COLON AND RECTAL SURGEON.[email or web address] R nausea No 05/14/24 14:21 COLON AND RECTAL SURGEON.[email or web address] R Vomiting No 05/14/24 14:21 COLON AND RECTAL SURGEON.[email or web address] R Anesthesia Postop Eval I: Fluid Summary Crystalloid volume administer 500 05/14/24 14:21 COLON AND RECTAL SURGEON.[email or web address] (ml) Colloids volume administered ( ml) Blood Product volume administered (ml) Total IV fluid infused 500 05/14/24 14:21 COLON AND RECTAL SURGEON.PROSPER Anesthesia Postop Eval I: Summary Notes Anesthesia Complication No 05/14/24 14:21 COLON AND RECTAL SURGEON.PROSPER Anesthesia Complication Comment: Post-operative progress note Anesthesia: Postop Eval II Evaluation Mental status: Awake and Calm Pain Level: 0 nausea: No Vomiting: No Complications Anesthesia Complication: No
== END 2024-05-14 15:20 | disposition home or self-care (01) ==
LOC: EN 12:10 → AC 12:10
PROVIDERS: PCP Family Medicine; Referring Provider Family Medicine; Visit Provider Internal Medicine Gastroenterology
PROC: 0DJD8ZZ Inspection of Lower Intestinal Tract, Via Natural or Artificial Opening Endoscopic (ICD-10-PCS; CPT 45378; principal; 2024-05-14 13:10)
DX: D12.3 Benign neoplasm of transverse colon (principal); K52.832 Lymphocytic colitis; K57.30 Diverticulosis of large intestine without perforation or abscess without bleeding; F32.A Depression, unspecified; F41.9 Anxiety disorder, unspecified; E78.00 Pure hypercholesterolemia, unspecified; I10 Essential (primary) hypertension; F17.200 Nicotine dependence, unspecified, uncomplicated; K63.89 Other specified diseases of intestine; Z79.82 Long term (current) use of aspirin; Z79.899 Other long term (current) drug therapy
CPT/HCPCS: 45380; 88305; 88312; J7120

== ENCOUNTER → 2024-05-22 | Outpatient (CLI) | payer MEDICARE, OTHER, SELFPAY ==
--- NOTE | 2024-05-22 13:48 | ART_ITS ---
Reason For Study: Claudication Procedure A bilateral lower extremity continuous wave Doppler with analog waveform analysis,segmental pressures,and ankle brachial indexes with exercise. Left Segmental Pressures Left brachial= 141mmHg. Left calf = 158mmHg. Left posterior tibial artery = 134mmHg. Left dorsalis pedis artery = 131mmHg. Left digit = 126 mmHg. The left dorsalis pedis waveforms are triphasic. The left posterior tibial artery waveforms are triphasic. Right Segmental Pressures Right brachial= 135mmHg. Right thigh = 122mmHg. Right calf = 96mmHg. Right posterior tibial artery = 85mmHg. Right dorsalis pedis artery = 77mmHg. Right digit = 73 mmHg. The right dorsalis pedis waveforms are monophasic. The right posterior tibial artery waveforms are monophasic. Indices The right ankle brachial index by the dorsalis pedis is 0.55. The right ankle brachial index by the posterior tibial artery is 0.60. The right digital-brachial index is 0.30. The right post exercise ankle brachial index is 0.27. The left ankle brachial index by the dorsalis pedis is 0.93. The left ankle brachial index by the posterior tibial artery is 0.95. The left digital-brachial index is 0.89. The left post exercise ankle brachial index is 0.97. VL/Lower Ext Art Exam w/ Exercise Interpretation Summary Right KAREN 0.6, moderate arterial insufficiency. Doppler/PVR waveforms and segme ntal pressures reveal ysljg-pzlgk-rrzlbrsf femoral, distal SFA/popliteal disease. Left KAREN 0.95, mild arterial insufficiency. Doppler/PVR waveforms and segmental pressures reveal infrapopliteal disease. Ordering Physician: Kailey Harper Referring Physician: Susy Teran Performed By: Tigist Hoyos RVJass
== END | disposition home or self-care (01) ==
LOC: CVS 13:47
PROVIDERS: PCP Family Medicine; Referring Provider Physician Assistant; Visit Provider Physician Assistant
DX: I70.211 Atherosclerosis of native arteries of extremities with intermittent claudication, right leg (principal)
CPT/HCPCS: 93924

== ENCOUNTER 2024-06-06 06:56 | Day surgery (SDC) | payer MEDICARE, OTHER, SELFPAY ==
[2024-06-05 08:31] VITALS: BMI 27.9
[2024-06-06 07:09] LABS: Hemoglobin 14.6 g/dL (13.0-16.5); Mean Corp Hgb Conc 32.4 g/dL (32-36); Mean Corpuscular Hgb 31.5 pg (27.0-32.0); Mean Platelet Vol. 9.6 fl (6.2-12.0); Platelet Count 273 K/mm3 (150-450); RBC Distribution Width CV 12.4 % (11.6-14.6); Red Blood Count 4.64 M/mm3 (4.6-6.2)
[2024-06-06 07:34] LABS: Anion Gap 8 (5-15); BUN 15 mg/dL (7-18); BUN/Creat Ratio 10.8 RATIO (10-20); Calcium,Total 9.2 mg/dL (8.5-10.1); Chloride 108 mmol/L (98-107); Creatinine, Serum 1.39 mg/dL (0.70-1.30); EST Glomerular Filtration Rate 53 mL/min (>60); Est Glom Filt Rate - Afr Amer 64 mL/min (>60); Estimated Creatinine Clearance 49.08 ml/min; Glucose 159 mg/dL (74-106); Potassium 3.8 mmol/L (3.5-5.1); Sodium Level 141 mmol/L (136-145)
--- NOTE | 2024-06-06 12:01 | PCM.OPRPT ---
Report of Operation Date of Procedure: 06/06/24 Pre-Operative Diagnosis: atherosclerosis with rest pain, right lower extremity Post-Operative Diagnosis: same Surgery/Procedure Performed:: aortograrm, RLE runoff IVUS peroneal artery, TP trunk, SFA/popliteal atherectomy stent P1 popliteal, atherectomy DCB P2-P3 popliteal Surgeon: Shakir Bustos Type of Anesthesia: Local and Sedation,Conscious Estimated Blood Loss (mL): 5 Description of Procedure: HPI: Patient is a 73-year-old male who had right calf claudication that abruptly changed to rest pain with digit discoloration. He had a CT angiogram which revealed occlusion of the popliteal artery. He is taken now for angiogram with possible intervention. Description of procedure: Upon obtaining form consent and verification correct patient procedure site patient was taken to the [facility] he was positioned prepped and draped in usual sterile fashion. Timeouts performed conscious sedation ministered Versed and fentanyl. Skin overlying left common femoral artery was anesthetized 1% lidocaine the vessel accessed with a micropuncture needle wire. This was then exchanged for micropuncture sheath through which hand-injection iliofemoral angiogram was performed. This revealed satisfactory position with no extravasation or dissection. A Webcrunch wire was then advanced through the catheter into the abdominal aorta and the micropuncture sheath exchanged for a short 6 Norwegian sheath. Through the 6 Norwegian sheath a flush catheter was advanced into the abdominal aorta and digital subtraction milligram pelvic angiogram was performed. This revealed normal caliber aorta with no segmental sclerosis or stenosis and patent bilateral common and external iliac arteries with no significant atherosclerosis or stenosis. A glide advantage wire was then advanced through the flush catheter and the flush catheter exchanged for an IM catheter which was utilized to navigate into the contralateral iliac system advancing the catheter into the distal external iliac artery. From this position sequential subtraction angiography the right lower extremity was performed which revealed patent normal caliber common femoral artery and its bifurcation with no significant atherosclerosis or stenosis of the common femoral, profunda, superficial femoral arteries. The proximal popliteal artery was patent with no significant sclerosis or stenosis and in the P1 segment distally there was calcified atherosclerosis with abrupt occlusion for approximately 3 cm with reconstitution of a moderately diseased P2 segment. There was poor visualization of the tibial vessels however the peroneal artery was clearly the dominant outflow vessel which was largest in caliber and filled with the most contrast from collaterals. [place] advantage wire then readvanced and navigate into the proximal superficial femoral artery. The IM catheter was then withdrawn and the short 6 Norwegian sheath exchanged for a 7 Norwegian destination sheath advanced over the bifurcation and positioned in the proximal to mid superficial femoral artery. The patient was in heparinized allowed to circulate for 3 minutes and utilizing a quick cross catheter and an 018 command wire we were able to successfully navigate the occlusion advancing the wire and catheter distally into the patent vessel with a course that appeared to be maintain position within the true lumen. The catheter was then advanced beyond the occlusion and the wire withdrawn and digital subtraction angiogram confirmed position within true lumen with no extravasation or dissection. The 018 wire was then readvanced and the catheter withdrawn after which time an intravascular sound probe was advanced over the wire and recorded pullback performed of the peroneal artery, tibioperoneal trunk, popliteal and distal SFA arteries. This confirmed positioning within true lumen as well as confirmed mixed characteristic of the occlusion with both plaque and what appeared to be some acute thrombus. There was moderate atherosclerosis distally in the popliteal down to the joint space at which point there was a high takeoff of the anterior tibial artery in the area that was typically the P3 segment was actually tibioperoneal trunk. Given the nature of the occlusion was felt that a atherectomy device that also performed aspiration and thrombectomy was appropriate so a Bard Rota Walter was brought in field prep for manufactures instructions. The command wire was exchanged for the Bard 018 wire and the device advanced over the wire and positioned above the lesion. This then exchanged for 2 passes across the entirety of the diseased segment both the total occlusion and the more distal disease. We did not treat the tibioperoneal trunk lesions which were approximately 50% in severity. The device was then withdrawn repeat angiography was performed which revealed significant luminal gain however there remained very irregular hazy appearance of the area of total occlusion which was suspicious for some element of continued thrombus which pose the risk for embolization if treated with angioplasty or traditional stent. It was felt that a covered stent was the safest option so a [place] Viabahn 8 x 100 was then advanced over the wire and positioned with adequate overlap to normal vessel proximal and distal and then deployed. This was then postdilated with a 7 mm x 40 angioplasty balloon first of the proximal and distal extents and then the middle segment where the lesion was located. Repeat angiography revealed satisfactory result with no extravasation dissection and no evidence of any embolization. Next the distal popliteal lesion which was not stented was treated with balloon angioplasty with a 6 mm x 40 angioplasty balloon inflated to nominal for 3 minutes then deflated and withdrawn. A [email or web address] [place] paclitaxel coated balloon was then advanced in position and inflated to nominal for 3 minutes and deflated withdrawn. Completion angiography revealed satisfactory lesion response of the more distal lesion with no extravasation dissection and brisk contrast transit. There was better visualization of the tibial outflow vessels with all 3 vessels patent with moderate disease of the proximal posterior tibial and anterior tibial arteries though they were patent and appear to be continuous down to the ankle. The peroneal artery was the dominant outflow larger caliber vessel with no significant atherosclerosis or stenosis. A long 7 Norwegian sheath and exchanged for 6 Norwegian sheath and a minx closure device deployed followed by 2 minutes of manual pressure. The patient was then taken the recovery room with plans to discharge to home. Grafts/Implants Used: 8x100 viabahn
[2024-06-06 13:39] LABS: ACT Activated Clotting Time 250 sec (74-137)
[2024-06-06 13:39] LABS: ACT Activated Clotting Time 214 sec (74-137)
== END 2024-06-06 14:34 | disposition home or self-care (01) ==
PROVIDERS: PCP Family Medicine; Referring Provider Surgery Trauma Surgery; Visit Provider Surgery Trauma Surgery
DX: I70.221 Atherosclerosis of native arteries of extremities with rest pain, right leg (principal); I10 Essential (primary) hypertension; E78.00 Pure hypercholesterolemia, unspecified; F32.A Depression, unspecified; F17.210 Nicotine dependence, cigarettes, uncomplicated; Z79.82 Long term (current) use of aspirin; Z79.899 Other long term (current) drug therapy
CPT/HCPCS: 36200; 36245; 36415; 37227; 37252; 37253; 75625; 75710; 76937; 80048; 85027; 85347; 99152; 99153; C1724; C1725; C1753; C1769; C1874; C1887; C1894; C2623; J7040; Q9967

== ENCOUNTER → 2024-07-11 | Outpatient (CLI) | payer MEDICARE, OTHER, SELFPAY ==
--- NOTE | 2024-07-11 10:01 | ADUL_ITS ---
Reason For Study: S/P POP A Stent / Atherectomy Right Velocities Ext. Iliac Artery, dist = 76.6 cm./sec. Common Femoral Artery, mid = 92.0 cm./sec. Supf Femoral Artery, prox = 69.9 cm./sec. Supf Femoral Artery, mid = 88.3 cm./sec. Supf Femoral Artery, dist. = 34.8 cm./sec. Profunda Femoral Artery = 66.2 cm./sec. Pre Stent / SFA Dist - 34.8 cm/s POP A Stent Noted Prox Stent - 46.4 cm/s Mid Stent - 83.4 cm/s Dist Stent - 65.0 cm/s Post Stent - 151.6 cm/s. Post. Tibial Artery, prox = 154.8 cm./sec. Post. Tibial Artery, mid = 49.0 cm./sec. Post. Tibial Artery, dist = 51.9 cm./sec. Peroneal Artery, prox = 63.2 cm./sec. Peroneal Artery, mid = 107.6 cm./sec. Peroneal Artery,dist = 107.6 cm./sec. Ant. Tibial Artery, prox = 142.3 cm./sec. Ant. Tibial Artery, mid = 29.2 cm./sec. Ant. Tibial Artery, dist = 7.4 cm./sec. Procedure The exam was diagnostic. Exam performed in department. /US Art Duplex Unilat Lower Ext Interpretation Summary Right SFA/popliteal stent patent with normal velocities and no evidence of sten osis Ordering Physician: Kailey Harper Referring Physician: Susy Teran Performed By: Real Garcia RVT
--- NOTE | 2024-07-11 10:01 | ART_ITS ---
Reason For Study: S/P Rt POP A STent / Atherectomy Procedure A bilateral lower extremity continuous wave Doppler with analog waveform analysis,segmental pressures,and ankle brachial indexes without exercise. Left Segmental Pressures Left brachial= 132mmHg. Left posterior tibial artery = 145mmHg. Left dorsalis pedis artery = 130mmHg. Left digit = 102 mmHg. The left posterior tibial artery waveforms are triphasic. The left dorsalis pedis waveforms are triphasic. Right Segmental Pressures Right brachial= 138mmHg. Right posterior tibial artery = 152mmHg. Right dorsalis pedis artery = 109mmHg. Right digit = 122 mmHg. The right posterior tibial artery waveforms are triphasic. The right dorsalis pedis waveforms are triphasic. Indices The right ankle brachial index by the posterior tibial artery is 1.10. The right ankle brachial index by the dorsalis pedis is 0.79. The right digital-brachial index is 0.88. The left ankle brachial index by the posterior tibial artery is 1.05. The left ankle brachial index by the dorsalis pedis is 0.94. The left digital-brachial index is 0.74. VL/Ankle Brachial Index Interpretation Summary Right KAREN 1.1, normal. TBI and Doppler/PVR waveforms of the right ankle normal at rest. Left KAREN 1.05, normal. Doppler/PVR waveforms of the left ankle normal at rest. TBI diminished, pedal/digit disease vs spasm Ordering Physician: Kailey Harper Referring Physician: Susy Teran Performed By: VELMA ORTEGA T
== END | disposition home or self-care (01) ==
LOC: CVS 10:00
PROVIDERS: PCP Family Medicine; Referring Provider Physician Assistant; Visit Provider Physician Assistant
DX: Z48.812 Encounter for surgical aftercare following surgery on the circulatory system (principal)
CPT/HCPCS: 93922; 93926

== ENCOUNTER 2024-07-12 02:22 | Emergency (ER) | payer MEDICARE, OTHER, SELFPAY ==
[2024-07-12 02:22] VITALS: BP 153/92; PULSE 78; RESP 16; TEMP 36.8; O2SAT 98; BMI 27.5
[2024-07-12] MEDS: 0.9% Normal Saline (1000mL) 1,000 ML 999 ML IV (03:22)
[2024-07-12] MEDS: Ondansetron 4 MG/2 ML Vial IV ×2 (03:22→04:59)
[2024-07-12 03:32] LABS: Absolute Lymphocyte Count 1.01 X10^3/uL (0.83-4.51); Absolute Neutrophil Count 8.9 X10^3/uL (2.0-7.7); Basophil# 0.13 X10^3/uL; Basophil% 1.2 % (0-1); Eosinophil# 0.02 X10^3/uL; Eosinophils% 0.2 % (0-5); Hematocrit 48.4 % (40-54); Hemoglobin 15.8 g/dL (13.0-16.5); Lymphocyte # 1.01 X10^3/ul (0.83-4.51); Lymphocyte % 9.3 % (19-41); Mean Corp Hgb Conc 32.6 g/dL (32-36); Mean Corpuscular Hgb 30.8 pg (27.0-32.0); Mean Corpuscular Volume 94.3 fL (80-94); Mean Platelet Vol. 9.3 fl (6.2-12.0); Monocyte# 0.64 X10^3/uL; Monocyte% 5.9 % (0-10); NRBC Flagged by Analyzer 0 % (0-5); Neutrophil # 8.87 X10^3/uL (2.7-7.7); Neutrophil % 81.4 % (47-70); Platelet Count 288 K/mm3 (150-450); RBC Distribution Width CV 12.2 % (11.6-14.6); RBC Distribution Width SD 42.6 fl (35.1-43.9); Red Blood Count 5.13 M/mm3 (4.6-6.2); White Blood Count 10.9 K/mm3 (4.4-11.0)
[2024-07-12 03:55] LABS: AST(SGOT) 10 U/L (15-37); Alanine Aminotransfer ALT/SGPT 21 U/L (16-61); Albumin, Serum 3.8 g/dL (3.2-5.0); Alkaline Phosphatase 109 U/L (45-117); Anion Gap 6 (5-15); BUN 22 mg/dL (7-18); BUN/Creat Ratio 16.3 RATIO (10-20); Bilirubin, Direct 0.17 mg/dL (0.00-0.30); Calcium,Total 9.5 mg/dL (8.5-10.1); Chloride 110 mmol/L (98-107); Creatinine, Serum 1.35 mg/dL (0.70-1.30); EST Glomerular Filtration Rate 55 mL/min (>60); Est Glom Filt Rate - Afr Amer 66 mL/min (>60); Estimated Creatinine Clearance 50.19 ml/min; Globulin 3.3 g/dL (2.2-4.2); Glucose 156 mg/dL (74-106); Lipase 35 U/L (13-75); Magnesium 2.3 mg/dL (1.6-2.6); Potassium 4.1 mmol/L (3.5-5.1); Protein, Total 7.1 g/dL (6.4-8.2); Sodium Level 141 mmol/L (136-145)
[2024-07-12 04:22] VITALS: BP 154/95; PULSE 72; RESP 18
--- NOTE | 2024-07-12 05:15 | EX.ED.DYSGE1 ---
HPI History of Present Illness Chief Complaint: Nausea/Vomiting Informant: patient Narrative Narrative: Patient is a 73-year-old male with past medical history of hypertension hyperlipidemia and peripheral vascular disease. He states around 10:00 this evening he developed bouts of nausea and vomiting and also felt lightheaded/dizzy. He describes the dizziness as more of a lightheaded sensation and not a sense of motion. He denies any known sick contacts fevers chills or dysuria. He denies any chest discomfort associated with this but based on his complex medical history presents for evaluation [facility] Medical History High cholesterol Depression Wears glasses Forgetfulness Anxiety Alcohol use Ambulates with cane Arthritis History of rheumatic fever History of renal disease PVD (peripheral vascular disease) with claudication Back pain Injury of head and neck Alteration in bowel elimination: incontinence Gastric reflux Smoker History of pain when walking History of echocardiogram Hx of pyloric stenosis Hypertension Home Medications ?Medication ?Instructions ?Recorded ?Last Taken ?Type bupropion HCl 200 mg tablet,12 hr 200 mg PO BID DEPRESSION 03/21/24 06/06/24 History sustained-release lisinopril 40 mg tablet 40 mg PO BID BLOOD PRESSURE 03/21/24 06/06/24 History metoprolol succinate 50 mg 50 mg PO QHS BLOOD PRESSURE 03/21/24 04/22/24 History tablet,extended release 24 hr simvastatin 5 mg tablet 5 mg PO QPM CHOLESTEROL 03/21/24 04/22/24 History amlodipine 5 mg tablet 5 mg PO QHS BLOOD PRESSURE 04/23/24 04/23/24 History aspirin 81 mg tablet,delayed 81 mg PO DAILY #30 tabs 04/23/24 Unknown Rx release diphenoxylate-atropine 2.5 2 tab PO Q6H PRN DIARRHEA 04/23/24 04/23/24 History mg-0.025 mg tablet nabumetone 500 mg tablet 500 mg PO BID PRN JOINT/BACK PAIN 04/23/24 Unknown History nitroglycerin 2 % transdermal 0.5 inch transdermal BID PRN pain 04/23/24 Unknown Rx ointment #30 grams budesonide 3 mg 9 mg (3 x 3 mg) PO DAILY #90 ea 05/20/24 Unknown Rx capsule,delayed,extended release colestipol 1 gram tablet 1 g PO QHS #30 tabs 05/20/24 Unknown Rx cilostazol 100 mg tablet 100 mg PO BID #60 tabs 05/22/24 06/06/24 Rx clopidogrel 75 mg tablet (Plavix) 75 mg PO DAILY #90 tabs 06/06/24 Unknown Rx ondansetron 4 mg disintegrating 4 mg PO TID PRN nausea and 07/12/24 Unknown Rx tablet vomiting #21 tabs Allergy/AdvReac Type Severity Reaction Status Date / Time No Known Allergies Allergy Verified 07/12/24 02:23 Family History Other Cancer Surgical History Hx of colonoscopy Hx of cholecystectomy Social History Smoking Status: Current every day smoker tobacco type: cigarettes ROS ROS ED Constitutional Constitutional ED: Denies chills or fever(s) Eyes Eyes: Denies blurry vision or change in vision ENT ENT ED: Denies sore throat Cardiovascular Cardiovascular: Denies chest pain, palpitations or racing heartbeat Respiratory/Chest Respiratory/Chest: Denies cough or dyspnea Gastrointestinal Gastrointestinal: Reports nausea and vomiting; Denies abdominal pain or diarrhea Genitourinary Genitourinary ED: Denies dysuria Musculoskeletal Musculoskeletal: Denies myalgias Integumentary Denies rash Neurologic Neurologic: Reports other Details: Positive dizziness ; Denies headache(s) Hematologic/Lymphatic Hematologic/Lymphatic: Reports easy bleeding and easy bruising EXAM Physical Exam Const Vital Signs: 07/12/24 02:22 07/12/24 04:22 Temperature 98.2 F Temperature Source Oral Pulse Rate 78 72 Respiratory Rate 16 18 Blood Pressure 153/92 H 154/95 H Blood Pressure Mean 112 114 Pulse Ox 98 Oxygen Delivery Method Room Air Positive well nourished and well developed General Appearance ED: well developed; Negative for pallor HEENT Reports dry mucous membranes HEENT Narrative: Mucous membranes are dry and tacky without tongue or lip swelling oral lesions or airway compromise No secondary findings in the posterior pharynx to suggest infection Mouth ED: Yes dry mucous membranes Mouth: dry mucous membranes Eyes PERRL and EOMs intact bilaterally General Eye ED: Negative for pale conjunctiva or scleral icterus Neck supple Neck Narrative: No nuchal rigidity or meningeal signs Chest Wall palpation of chest normal Resp normal respiratory effort and clear to auscultation bilaterally Resp Narrative: Breath sounds are diminished throughout but overall clear to auscultation without signs of respiratory distress Cardio regular rate and regular rhythm Rate: other Other Details: Radial and carotid pulses are equal and symmetric GI non-tender, non-distended and no masses GI Narrative: Abdomen is soft nontender and nondistended with hyperactive bowel sounds no voluntary guarding or rigidity or pulsatile mass Auscultation: hyperactive bowel sounds Palpation: soft Extremity normal to inspection Neuro oriented x3, CN's II-XII intact bilaterally and no sensory deficits noted Neuro Narrative: Cranial nerves II through XII are grossly intact without focal neurologic deficit. No pronator drift no dysmetria no truncal ataxia NIH stroke scale score of 0 Sensorium / Orientation: alert Motor Exam: strength 5/5 throughout Psych Psych Narrative: Patient is a nervous/anxious affect Skin No skin turgor normal Skin Narrative: Skin turgor is increased General Skin Exam: Negative for jaundice or pallor MDM MDM MDM Narrative Medical decision making narrative: Patient arrived to the ER hypertensive but otherwise with stable vitals and has a past medical history of this. Was report of nausea and vomiting and there is concern for viral infection such as [place] or rotavirus versus acute kidney injury versus electrolyte abnormality versus pancreatitis versus biliary colic or acute cholecystitis vs dehydration. Secondary to his basic labs were obtained. Labs showed no clinically significant findings; kidney function was just slightly elevated but not high enough to correlate with acute kidney injury no signs of acute blood loss anemia or leukocytosis and electrolytes were not clinically significantly deranged. Lipase was also normal going against pancreatitis and liver enzymes were within normal limits going against biliary colic or acute cholecystitis. After receiving IV hydration and medication he had resolution of his symptoms and therefore is otherwise safe for discharge with symptomatic care History & Record Review Discussion w/independent historian: Patient Lab Data Attestation: I reviewed the patient's lab results. Labs: Laboratory Results - last 24 hr 07/12/24 03:25 WBC 10.9 RBC 5.13 Hgb 15.8 Hct 48.4 MCV 94.3 H MCH 30.8 MCHC 32.6 RDW Std Deviation 42.6 RDW Coeff of Traci 12.2 Plt Count 288 MPV 9.3 Immature Gran % (Auto) 2.000 H Neut % (Auto) 81.4 H Lymph % (Auto) 9.3 L Bennett % (Auto) 5.9 Eos % (Auto) 0.2 Baso % (Auto) 1.2 H Absolute Neuts (auto) 8.9 H Absolute Lymphs (auto) 1.01 Nucleated RBC % 0 Sodium 141 Potassium 4.1 Chloride 110 H Carbon Dioxide 25.0 Anion Gap 6 BUN 22 H Creatinine 1.35 H Estim Creat Clear Calc 50.19 Est GFR (MDRD) Af Amer 66 Est GFR (MDRD) Non-Af 55 L BUN/Creatinine Ratio 16.3 Glucose 156 H Calcium 9.5 Magnesium 2.3 Total Bilirubin 0.50 Direct Bilirubin 0.17 AST 10 L ALT 21 Alkaline Phosphatase 109 Total Protein 7.1 Albumin 3.8 Globulin 3.3 Lipase 35 Discharge Plan Triage Chief Complaint: Nausea/Vomiting ED Provider: Jagjit Denis Dx/Rx/DC Orders Clinical Impression: Dehydration, Nausea vomiting and diarrhea, Hypertension, Peripheral vascular disease Instructions: Dehydration, ED Gastroenteritis, Viral (Adult) Prescriptions: New ondansetron 4 mg tablet,disintegrating 4 mg PO TID PRN (Reason: nausea and vomiting) Qty: 21 1RF No Action cilostazol 100 mg tablet 100 mg PO BID Qty: 60 2RF metoprolol succinate 50 mg tablet extended release 24 hr 50 mg PO QHS simvastatin 5 mg tablet 5 mg PO QPM lisinopril 40 mg tablet 40 mg PO BID bupropion HCl 200 mg tablet sustained-release 12 hr 200 mg PO BID diphenoxylate-atropine 2.5-0.025 mg tablet 2 tab PO Q6H PRN (Reason: DIARRHEA ) amlodipine 5 mg tablet 5 mg PO QHS nabumetone 500 mg tablet 500 mg PO BID PRN (Reason: JOINT/BACK PAIN) aspirin 81 mg tablet,delayed release (DR/EC) 81 mg PO DAILY Qty: 30 0RF nitroglycerin 2 % ointment 0.5 inch transdermal BID PRN (Reason: pain) Qty: 30 0RF Rx Instructions: administer 2 doses/day (approx. 6 hrs apart); remove for 10-12 hrs per 24 hours budesonide 3 mg capsule,delayed,extend.release 9 mg PO DAILY Qty: 90 5RF colestipol 1 gram tablet 1 g PO QHS Qty: 30 3RF clopidogrel [Plavix] 75 mg tablet 75 mg PO DAILY Qty: 90 3RF Primary Care Provider: Susy Teran Referrals: Susy Terna DO [Primary Care Provider] - Activity Restrictions/Additional Instructions: Please keep yourself well-hydrated and return to the ER she have any further concerns or worsening of symptoms Print Language: Azeri Disposition Disposition: Home, Self Care Discharge Date/Time: 07/12/24 06:10
[2024-07-12] MEDS: proCHLORPERazine 10 MG/2 ML Vial 5 MG IV (05:24)
[2024-07-12] MEDS: DiphenhydrAMINE 50 MG/ML Syringe 12.5 MG IV (05:25)
[2024-07-12 05:30] VITALS: BP 159/96; PULSE 78; RESP 15; TEMP 36.6; O2SAT 96
== END 2024-07-12 06:10 | disposition home or self-care (01) ==
PROVIDERS: Emergency Provider Emergency Medicine; PCP Family Medicine; Visit Provider Emergency Medicine
DX: E86.0 Dehydration (principal); R11.2 Nausea with vomiting, unspecified; I73.9 Peripheral vascular disease, unspecified; I10 Essential (primary) hypertension; F17.210 Nicotine dependence, cigarettes, uncomplicated; E78.00 Pure hypercholesterolemia, unspecified; R19.7 Diarrhea, unspecified; K21.9 Gastro-esophageal reflux disease without esophagitis; R42 Dizziness and giddiness
CPT/HCPCS: 80048; 80076; 83690; 83735; 85025; 87631; 96361; 96374; 96375; 96376; 99283; J7030; A4216; J2405

== ENCOUNTER → 2024-08-21 | Outpatient (CLI) | payer MEDICARE, OTHER, SELFPAY ==
--- NOTE | 2024-08-21 12:05 | RAD_ITS ---
STUDY: X-RAY - ABDOMEN/PELVIS REASON FOR EXAM: Male, 73 years old. ABD PAIN TECHNIQUE: Single AP view of the abdomen / pelvis. COMPARISON: None. FINDINGS: Normal visualized lung bases. There is marked diffuse fecal retention, otherwise unremarkable bowel gas pattern. There is no demonstrated free abdominal air. The visualized liver, spleen and kidneys are grossly normal in size and morphology. Normal soft tissue structures. Normal visualized osseous structures. RAD/Abdomen Single View IMPRESSION: Fecal retention. No evidence for obstruction. Electronically Signed: Dimas Danielson MD at 17:19 EDT ,
== END | disposition home or self-care (01) ==
LOC: RAD 11:52
PROVIDERS: PCP Family Medicine; Referring Provider Family Medicine; Visit Provider Family Medicine
DX: Z00.00 Encounter for general adult medical examination without abnormal findings (principal)
CPT/HCPCS: 74018

== ENCOUNTER 2024-08-23 11:49 | Inpatient (IN) | payer MEDICARE, OTHER, SELFPAY ==
[2024-08-23 11:50] VITALS: BP 149/87; PULSE 94; RESP 18; TEMP 36.6; O2SAT 99
[2024-08-23] MEDS: Ondansetron 4 MG/2 ML Vial IV (12:36)
[2024-08-23] MEDS: Morphine 4 MG/ML Syringe IV (12:36)
[2024-08-23 12:39] VITALS: BMI 27.2
[2024-08-23 12:53] LABS: Absolute Neutrophil Count 10.9 X10^3/uL (2.0-7.7); Basophil# 0.05 X10^3/uL; Basophil% 0.4 % (0-1); Eosinophil# 0.05 X10^3/uL; Eosinophils% 0.4 % (0-5); Hematocrit 46.7 % (40-54); Hemoglobin 15.6 g/dL (13.0-16.5); Lymphocyte % 7.7 % (19-41); Mean Corp Hgb Conc 33.4 g/dL (32-36); Mean Corpuscular Hgb 31.3 pg (27.0-32.0); Mean Corpuscular Volume 93.8 fL (80-94); Mean Platelet Vol. 9.6 fl (6.2-12.0); Monocyte# 0.91 X10^3/uL; NRBC Flagged by Analyzer 0 % (0-5); Neutrophil # 10.85 X10^3/uL (2.7-7.7); Neutrophil % 83.1 % (47-70); Platelet Count 288 K/mm3 (150-450); RBC Distribution Width CV 12.3 % (11.6-14.6); RBC Distribution Width SD 42.3 fl (35.1-43.9); Red Blood Count 4.98 M/mm3 (4.6-6.2)
[2024-08-23 13:11] LABS: ALB/GLOB Ratio 0.9 RATIO (0.9-2.4); AST(SGOT) 8 U/L (15-37); Alanine Aminotransfer ALT/SGPT 20 U/L (16-61); Albumin, Serum 3.3 g/dL (3.2-5.0); Alkaline Phosphatase 100 U/L (45-117); Anion Gap 6 (5-15); BUN 17 mg/dL (7-18); BUN/Creat Ratio 14.9 RATIO (10-20); Calcium,Total 9.1 mg/dL (8.5-10.1); Chloride 109 mmol/L (98-107); Creatinine, Serum 1.14 mg/dL (0.70-1.30); EST Glomerular Filtration Rate 67 mL/min (>60); Est Glom Filt Rate - Afr Amer 81 mL/min (>60); Globulin 3.7 g/dL (2.2-4.2); Glucose 163 mg/dL (74-106); Lipase 31 U/L (13-75); Potassium 3.7 mmol/L (3.5-5.1); Sodium Level 138 mmol/L (136-145)
[2024-08-23] MEDS: Piperacil/Tazobactam 4.5 GM in 0.9% Normal Saline (100mL MB+) 100 ML IV (14:59)
[2024-08-23 15:30] VITALS: BP 133/96; PULSE 81; RESP 16; TEMP 35.8; O2SAT 95
[2024-08-23 15:49] VITALS: BMI 25.4
[2024-08-23] MEDS: 0.9% Normal Saline (1000mL) 1,000 ML 150 ML IV (16:57)
[2024-08-23] MEDS: Magnesium Citrate 300 ML 150 ML PO (16:58)
[2024-08-23] MEDS: 0.9% Saline Lock 10 ML Syringe IV ×2 (17:02→17:44)
[2024-08-23] MEDS: proCHLORPERazine 10 MG/2 ML Vial 5 MG IV (17:39)
[2024-08-23] MEDS: Ketorolac 15 MG/ML Vial IV (17:42)
[2024-08-23] MEDS: Pantoprazole Sodium 40 MG in 0.9% Normal Saline (100mL MB+) 100 ML 330 MG IV (18:13)
[2024-08-23 21:09] VITALS: BP 141/97; PULSE 80; RESP 15; TEMP 37.1; O2SAT 98
[2024-08-23] MEDS: Cilostazol 50 MG Tablet 100 MG PO (21:15)
[2024-08-23] MEDS: buPROPion (SR) 100 MG TABLET.SA 200 MG PO (21:15)
[2024-08-23] MEDS: amLODIPine 5 MG Tablet PO (21:15)
[2024-08-23 21:16] VITALS: BP 141/97; PULSE 80
[2024-08-23] MEDS: Metoprolol(XL)Succ 50 MG Tablet PO (21:16)
[2024-08-23] MEDS: Acetaminophen 500 MG Tablet 1000 MG PO (21:16)
[2024-08-23] MEDS: Lisinopril 40 MG Tablet PO (21:17)
[2024-08-23] MEDS: Piperacil/Tazobactam 3.375 GM in 0.9% Normal Saline (50mL MB+) 50 ML IV (22:39)
[2024-08-24 03:00] VITALS: BP 116/76; PULSE 73; RESP 15; TEMP 36.7; O2SAT 93
[2024-08-24 04:48] LABS: Absolute Lymphocyte Count 1.34 X10^3/uL (0.83-4.51); Absolute Neutrophil Count 7.5 X10^3/uL (2.0-7.7); Basophil# 0.06 X10^3/uL; Basophil% 0.6 % (0-1); Eosinophil# 0.14 X10^3/uL; Eosinophils% 1.4 % (0-5); Hemoglobin 14.1 g/dL (13.0-16.5); Lymphocyte # 1.34 X10^3/ul (0.83-4.51); Mean Corp Hgb Conc 33.6 g/dL (32-36); Mean Corpuscular Volume 95.5 fL (80-94); Mean Platelet Vol. 9.8 fl (6.2-12.0); Monocyte# 1.02 X10^3/uL; Monocyte% 9.9 % (0-10); NRBC Flagged by Analyzer 0 % (0-5); Neutrophil # 7.53 X10^3/uL (2.7-7.7); Neutrophil % 73.2 % (47-70); Platelet Count 255 K/mm3 (150-450); RBC Distribution Width CV 12.5 % (11.6-14.6); RBC Distribution Width SD 43.9 fl (35.1-43.9); White Blood Count 10.3 K/mm3 (4.4-11.0)
[2024-08-24 05:14] LABS: Anion Gap 3 (5-15); BUN 17 mg/dL (7-18); BUN/Creat Ratio 13.9 RATIO (10-20); Calcium,Total 8.8 mg/dL (8.5-10.1); Chloride 109 mmol/L (98-107); Creatinine, Serum 1.22 mg/dL (0.70-1.30); EST Glomerular Filtration Rate 62 mL/min (>60); Est Glom Filt Rate - Afr Amer 75 mL/min (>60); Estimated Creatinine Clearance 51.39 ml/min; Glucose 112 mg/dL (74-106); Potassium 4.2 mmol/L (3.5-5.1); Sodium Level 138 mmol/L (136-145)
[2024-08-24] MEDS: Acetaminophen 500 MG Tablet 1000 MG PO ×3 (06:04→21:24)
[2024-08-24] MEDS: Piperacil/Tazobactam 3.375 GM in 0.9% Normal Saline (50mL MB+) 50 ML IV ×3 (06:04→21:21)
[2024-08-24] MEDS: 0.9% Normal Saline (500mL Bag) 500 ML 15 ML IV (06:06)
[2024-08-24 08:03] VITALS: BP 122/73; PULSE 75; RESP 18; TEMP 36.8; O2SAT 94
[2024-08-24] MEDS: Enoxaparin 40 MG/0.4 ML Syringe SC (08:17)
[2024-08-24] MEDS: Aspirin E.C. 81 MG Tablet PO (08:17)
[2024-08-24] MEDS: Lisinopril 40 MG Tablet PO ×2 (08:18→21:23)
[2024-08-24] MEDS: Clopidogrel Bisulfate 75 MG Tablet PO (08:18)
[2024-08-24] MEDS: Cilostazol 50 MG Tablet 100 MG PO ×2 (08:18→21:22)
[2024-08-24] MEDS: buPROPion (SR) 100 MG TABLET.SA 200 MG PO ×2 (08:18→21:32)
[2024-08-24] MEDS: Pantoprazole Sodium 40 MG in 0.9% Normal Saline (100mL MB+) 100 ML 330 MG IV (10:22)
[2024-08-24 15:00] VITALS: BP 105/73; PULSE 82; RESP 18; TEMP 36.8; O2SAT 95
[2024-08-24 20:03] VITALS: BP 117/89; PULSE 71; RESP 16; TEMP 36.7; O2SAT 94
[2024-08-24] MEDS: Ensure Clear 120 ML Liquid PO (21:21)
[2024-08-24] MEDS: amLODIPine 5 MG Tablet PO (21:22)
[2024-08-24 21:23] VITALS: PULSE 71
[2024-08-24] MEDS: Metoprolol(XL)Succ 50 MG Tablet PO (21:23)
[2024-08-25 01:57] VITALS: BP 136/91; PULSE 81; RESP 16; TEMP 36.7; O2SAT 98
[2024-08-25] MEDS: Acetaminophen 500 MG Tablet 1000 MG PO (06:52)
[2024-08-25] MEDS: Piperacil/Tazobactam 3.375 GM in 0.9% Normal Saline (50mL MB+) 50 ML IV (06:52)
[2024-08-25 08:37] VITALS: BP 121/73; PULSE 83; RESP 18; TEMP 36.6; O2SAT 93
[2024-08-25] MEDS: Lisinopril 40 MG Tablet PO (08:40)
[2024-08-25] MEDS: Cilostazol 50 MG Tablet 100 MG PO (08:40)
[2024-08-25] MEDS: Aspirin E.C. 81 MG Tablet PO (08:41)
[2024-08-25] MEDS: Clopidogrel Bisulfate 75 MG Tablet PO (08:41)
[2024-08-25] MEDS: buPROPion (SR) 100 MG TABLET.SA 200 MG PO (08:53)
== END 2024-08-25 11:08 | disposition home or self-care (01) | DRG 392 ==
LOC: ED 14:38 → MS3 15:09
PROVIDERS: Nurse Practitioner; Emergency Provider Emergency Medicine; PCP Family Medicine; Visit Provider Internal Medicine
DX: K57.30 Diverticulosis of large intestine without perforation or abscess without bleeding (principal); E78.00 Pure hypercholesterolemia, unspecified; F32.A Depression, unspecified; I10 Essential (primary) hypertension; I73.9 Peripheral vascular disease, unspecified; K52.832 Lymphocytic colitis; F17.210 Nicotine dependence, cigarettes, uncomplicated; K59.00 Constipation, unspecified; Z79.02 Long term (current) use of antithrombotics/antiplatelets; Z79.82 Long term (current) use of aspirin; Z79.1 Long term (current) use of non-steroidal anti-inflammatories (NSAID); N40.0 Benign prostatic hyperplasia without lower urinary tract symptoms
CPT/HCPCS: 36415; 74018; 74177; 80048; 80053; 83690; 85025; 97802; 99284; J7030; J7040; Q9967; A4216; J2405

== ENCOUNTER 2024-09-06 18:13 | Emergency (ER) | payer MEDICARE, OTHER, SELFPAY ==
[2024-09-06 18:14] VITALS: BP 156/106; PULSE 84; RESP 16; TEMP 37.1; O2SAT 98; BMI 27.3
--- NOTE | 2024-09-06 18:33 | ED.VIS.BACK ---
HPI <ANDREINA Grijalva - Last Filed: 09/06/24 20:39> History of Present Illness Chief Complaint: Back Narrative Narrative: Patient presenting today with low back pain that he has had since this afternoon after mechanical fall occurred. He reports that his toe caught the rug causing him to fall forward and hit the ground. He did hear a crack in his back as he was falling. He did not hit his head and denies LOC. He has tried taking NSAIDs with minimal relief of his pain. He denies any bowel/bladder incontinence, no saddle paresthesia. He denies any lower extremity weakness or paresthesias. [facility] <ANDREINA Grijalva - Last Filed: 09/06/24 20:39> [facility] Medical History Rheumatic fever Chronic pain DVT (deep venous thrombosis) High cholesterol Depression Wears glasses Forgetfulness Anxiety Alcohol use Ambulates with cane Arthritis History of rheumatic fever History of renal disease PVD (peripheral vascular disease) with claudication Back pain Injury of head and neck Alteration in bowel elimination: incontinence Gastric reflux Smoker History of pain when walking History of echocardiogram Hx of pyloric stenosis Hypertension Home Medications ?Medication ?Instructions ?Recorded ?Last Taken ?Type bupropion HCl 200 mg tablet,12 hr 200 mg PO BID DEPRESSION 03/21/24 06/06/24 History sustained-release lisinopril 40 mg tablet 40 mg PO BID BLOOD PRESSURE 03/21/24 06/06/24 History metoprolol succinate 50 mg 50 mg PO QHS BLOOD PRESSURE 03/21/24 04/22/24 History tablet,extended release 24 hr simvastatin 5 mg tablet 5 mg PO QPM CHOLESTEROL 03/21/24 04/22/24 History amlodipine 5 mg tablet 5 mg PO QHS BLOOD PRESSURE 04/23/24 04/23/24 History aspirin 81 mg tablet,delayed 81 mg PO DAILY #30 tabs 04/23/24 Unknown Rx release nabumetone 500 mg tablet 500 mg PO BID PRN JOINT/BACK PAIN 04/23/24 Unknown History nitroglycerin 2 % transdermal 0.5 inch transdermal BID PRN pain 04/23/24 Unknown Rx ointment #30 grams clopidogrel 75 mg tablet (Plavix) 75 mg PO DAILY #90 tabs 06/06/24 Unknown Rx acetaminophen 500 mg tablet 1,000 mg (2 x 500 mg) PO Q8 PRN 08/25/24 Unknown Rx Abdominal Discomfort #30 tabs pantoprazole 40 mg tablet,delayed 40 mg PO DAILY #60 tabs 08/25/24 Unknown Rx release (Protonix) calcitonin (salmon) 200 1 spray intranasal (ALT) DAILY 2 09/06/24 Unknown Rx unit/actuation nasal spray weeks #3.7 mL oxycodone-acetaminophen 5 mg-325 1 tab PO Q6H PRN pain 3 days #12 09/06/24 Unknown Rx mg tablet (Percocet) tabs polyethylene glycol 3350 17 17 g PO DAILY #119 grams 09/06/24 Unknown Rx gram/dose oral powder (Miralax) Allergy/AdvReac Type Severity Reaction Status Date / Time No Known Allergies Allergy Verified 09/06/24 18:13 Family History Sister Diverticulosis Mother Diverticulosis Other Cancer Surgical History History of embolic filter insertion Hx of colonoscopy Hx of cholecystectomy Social History Smoking Status: Current every day smoker tobacco type: cigarettes ROS <ANDREINA Grijalva - Last Filed: 09/06/24 20:39> ROS ED Constitutional Constitutional ED: Denies chills or fever(s) Cardiovascular Cardiovascular: Denies chest pain Respiratory/Chest Respiratory/Chest: Denies dyspnea Gastrointestinal Gastrointestinal: Denies abdominal pain, nausea or vomiting Genitourinary Genitourinary ED: Denies dysuria, hematuria or urinary urgency Musculoskeletal Musculoskeletal: Reports back pain Integumentary Denies rash Neurologic Neurologic: Denies paresthesias or weakness EXAM <ANDREINA Grijalva - Last Filed: 09/06/24 20:39> Physical Exam Const Vital Signs: 09/06/24 18:14 09/06/24 20:17 Temperature 98.7 F 98 F Temperature Source Oral Pulse Rate 84 86 Respiratory Rate 16 18 Blood Pressure 156/106 H 150/88 H Blood Pressure Mean 122 108 Pulse Ox 98 99 Oxygen Delivery Method Room Air Positive well nourished, well developed and no apparent distress General Appearance ED: well developed HEENT Reports normocephalic and head/scalp atraumatic Mouth ED: Yes moist mucous membranes normal Eyes PERRL and EOMs intact bilaterally Neck full ROM and supple Chest Wall inspection of chest normal Resp normal respiratory effort and clear to auscultation bilaterally Cardio regular rate and regular rhythm Back/Spine normal ROM and normal to inspection Back/Spine Narrative: Tenderness to the right lumbar paraspinal muscles, midline lumbar tenderness. No step-offs. Extremity normal to inspection and full ROM Extremity Narrative: 5/5 strength and sensation to the upper and lower extremities. Neuro oriented x3, CN's II-XII intact bilaterally, moves all extremities, no focal motor deficits and no sensory deficits noted Sensorium / Orientation: awake and alert Motor Exam: strength 5/5 throughout Deep Tendon Reflexes: Rt Patellar (L4): 2+ and Lt Patellar (L4): 2+ Deep Tendon Reflexes Back: Rt Patellar (L4): 2+ and Lt Patellar (L4): 2+ Psych mental status grossly normal and thought process normal Skin no rashes or lesions noted and no wounds <Dr. Jens Trevino MD - Last Filed: 09/07/24 00:38> Physical Exam Const Vital Signs: 09/06/24 18:14 09/06/24 20:17 Temperature 98.7 F 98 F Temperature Source Oral Pulse Rate 84 86 Respiratory Rate 16 18 Blood Pressure 156/106 H 150/88 H Blood Pressure Mean 122 108 Pulse Ox 98 99 Oxygen Delivery Method Room Air MDM <ANDREINA Grijalva - Last Filed: 09/06/24 20:39> [facility] Narrative Medical decision making narrative: Patient presenting due to back pain that resulted from a mechanical fall this afternoon. He does have midline lumbar spinal tenderness as well as right sided lumbar paraspinal tenderness. X-ray of the lumbar spine will be obtained to rule out fracture. He was given [place] here for pain. He is able to ambulate. X-ray shows a compression fracture of L1. Patient will be treated with calcitonin, [place], and MiraLAX. He has been referred to ortho spine. He will be discharged home in stable condition. I have personally performed a face to face assessment of the patient and have reviewed the [facility]UN[facility] Note. I performed a substantive portion of the visit including all aspects of the following. My perales findings include: History is remarkable for mechanical fall. He fell forward. He did not land on his back. He complains of back pain area lower thoracic upper lumbar region. He denies paresthesia, anesthesia medics upper or lower extremity. [place] radicular pain lower extremity exam he denies any altered sensation in his buttocks area. He denies dragging his foot when he walks. There is no history of head trauma. Is on Plavix. He is not on anticoagulant. He denies neck pain. He denies cardiac respiratory symptoms. Nuys black or maroon-colored stool. Exam is remarkable for pain lower thoracic upper lumbar region. There is no obvious bruising. Patella and ankle reflex are 1-2+ symmetric. There is no clonus Babinski. EHLs intact bilaterally. Normal sensation L1-L5 dermatome. There is no pain ovation over the right or left iliac wing, pubic symphysis or the right or left buttocks area. Medical Decision Making will obtain x-ray. X-ray reveals a compression fracture of L1 which is new from prior LS spine film that was performed 2022. There is no history of osteoporosis or osteopenia. Patient was treated with calcitonin and opiate analgesia. He was told that the fracture may cause an ileus which means his bowels may not work well. He states has had trouble with moving his bowels. Apparently on Colace. He was instructed to continue taking the Colace. Recommended Metamucil or MiraLAX twice a day. He is to take this for the next 1 to 2 weeks. Other additions or changes: Referral to bone the bone because of concern for osteo porosis based on mechanism. Radiography Diagnostic Testing: Clinical Impression(s) from Imaging Studies Lumbar Spine X-Ray 09/06/24 18:59 IMPRESSION: 1. Anterior compression fracture measuring approximately 25% involving the L1 vertebral body that may be acute. 2. Diffuse mild multilevel degenerative disc disease. 3. Diffuse bilateral multilevel vertebral facet arthropathy. Electronically Signed: Thad Rice MD at 19:25 EST , <Dr. Jens Trevino MD - Last Filed: 09/07/24 00:38> [facility] Narrative Medical decision making narrative: Patient presenting due to back pain that resulted from a mechanical fall this afternoon. He does have midline lumbar spinal tenderness as well as right sided lumbar paraspinal tenderness. X-ray of the lumbar spine will be obtained to rule out fracture. He was given [place] here for pain. He is able to ambulate. I have personally performed a face to face assessment of the patient and have reviewed the [facility] Note. I performed a substantive portion of the visit including all aspects of the following. My perales findings include: History is remarkable for mechanical fall. He fell forward. He did not land on his back. He complains of back pain area lower thoracic upper lumbar region. He denies paresthesia, anesthesia medics upper or lower extremity. Nuys radicular pain lower extremity exam he denies any altered sensation in his buttocks area. He denies dragging his foot when he walks. There is no history of head trauma. Is on Plavix. He is not on anticoagulant. He denies neck pain. He denies cardiac respiratory symptoms. Nuys black or maroon-colored stool. Exam is remarkable for pain lower thoracic upper lumbar region. There is no obvious bruising. Patella and ankle reflex are 1-2+ symmetric. There is no clonus Babinski. EHLs intact bilaterally. Normal sensation L1-L5 dermatome. There is no pain ovation over the right or left iliac wing, pubic symphysis or the right or left buttocks area. Medical Decision Making will obtain x-ray. X-ray reveals a compression fracture of L1 which is new from prior LS spine film that was performed 2022. There is no history of osteoporosis or osteopenia. Patient was treated with calcitonin and opiate analgesia. He was told that the fracture may cause an ileus which means his bowels may not work well. He states has had trouble with moving his bowels. Apparently on Colace. He was instructed to continue taking the Colace. Recommended Metamucil or MiraLAX twice a day. He is to take this for the next 1 to 2 weeks. Other additions or changes: Referral to bone the bone because of concern for osteo porosis based on mechanism. Radiography Chest X-Ray - ED: 2 View and Read by ED Physician X-Ray: LS SPine, DJD, Osteophytes, Spondylolisthesis, Disk Space Narrowing and Compression (L1) Diagnostic Testing: Clinical Impression(s) from Imaging Studies Lumbar Spine X-Ray 09/06/24 18:59 IMPRESSION: 1. Anterior compression fracture measuring approximately 25% involving the L1 vertebral body that may be acute. 2. Diffuse mild multilevel degenerative disc disease. 3. Diffuse bilateral multilevel vertebral facet arthropathy. Electronically Signed: Thad Rice MD at 19:25 EST , Discharge Plan Triage Chief Complaint: Back ED Midlevel Provider: Ling Hernandez ED Provider: Jens Trevino Dx/Rx/DC Orders Clinical Impression: Back fracture, Fall Instructions: ED Fracture, Vertebral Compression Prescriptions: New polyethylene glycol 3350 [Miralax] 17 gram/dose powder 17 g PO DAILY Qty: 119 0RF calcitonin (salmon) 200 unit/actuation spray,non-aerosol 1 spray intranasal (ALT) DAILY 14 Days Qty: 3.7 0RF oxycodone-acetaminophen [Percocet] 5-325 mg tablet 1 tab PO Q6H PRN (Reason: pain) 3 Days Qty: 12 0RF No Action metoprolol succinate 50 mg tablet extended release 24 hr 50 mg PO QHS simvastatin 5 mg tablet 5 mg PO QPM lisinopril 40 mg tablet 40 mg PO BID bupropion HCl 200 mg tablet sustained-release 12 hr 200 mg PO BID acetaminophen 500 mg Tablet 1,000 mg PO Q8 PRN (Reason: Abdominal Discomfort) Qty: 30 0RF pantoprazole [Protonix] 40 mg tablet,delayed release (DR/EC) 40 mg PO DAILY Qty: 60 0RF amlodipine 5 mg tablet 5 mg PO QHS nabumetone 500 mg tablet 500 mg PO BID PRN (Reason: JOINT/BACK PAIN) aspirin 81 mg tablet,delayed release (DR/EC) 81 mg PO DAILY Qty: 30 0RF nitroglycerin 2 % ointment 0.5 inch transdermal BID PRN (Reason: pain) Qty: 30 0RF Rx Instructions: administer 2 doses/day (approx. 6 hrs apart); remove for 10-12 hrs per 24 hours clopidogrel [Plavix] 75 mg tablet 75 mg PO DAILY Qty: 90 3RF Primary Care Provider: Susy Teran Referrals: Broderick Colón MD [Med Staff - Active Staff] - 5-7 Days Susy Teran DO [Primary Care Provider] - Activity Restrictions/Additional Instructions: Please follow-up with orthopedics, return for any worsening of your symptoms. Print Language: Japanese Disposition Disposition: Home, Self Care Discharge Date/Time: 09/06/24 20:23
[2024-09-06] MEDS: HYDROcodone Bitartrate/Apap 5/325 Tablet PO (18:39)
--- NOTE | 2024-09-06 18:59 | RAD_ITS ---
EXAM: XR LUMBOSACRAL SPINE, 2 OR 3 VIEWS CLINICAL INDICATION: back pain TECHNIQUE: Frontal and lateral views of the lumbar spine and sacrum. COMPARISON: No relevant prior studies available. FINDINGS: VERTEBRAE: Anterior compression fracture measuring approximately 25% involving the L1 vertebral body that may be acute. Diffuse bilateral multilevel vertebral facet arthropathy. No spondylolisthesis. Preservation of the normal lumbar lordosis. DISC SPACES: Diffuse mild multilevel degenerative disc disease. GASTROINTESTINAL TRACT: Unremarkable as visualized. Included bowel gas pattern is non-obstructive. RAD/Lumbar Spine 2 or 3 Views IMPRESSION: 1. Anterior compression fracture measuring approximately 25% involving the L1 vertebral body that may be acute. 2. Diffuse mild multilevel degenerative disc disease. 3. Diffuse bilateral multilevel vertebral facet arthropathy. Electronically Signed: Thad Rice MD at 19:25 EST ,
[2024-09-06 20:17] VITALS: BP 150/88; PULSE 86; RESP 18; TEMP 36.6; O2SAT 99
== END 2024-09-06 20:23 | disposition home or self-care (01) ==
PROVIDERS: Emergency Provider Emergency Medicine; PCP Family Medicine; Visit Provider Emergency Medicine
DX: S32.010A Wedge compression fracture of first lumbar vertebra, initial encounter for closed fracture (principal); E78.00 Pure hypercholesterolemia, unspecified; I10 Essential (primary) hypertension; K21.9 Gastro-esophageal reflux disease without esophagitis; F17.210 Nicotine dependence, cigarettes, uncomplicated; Z79.02 Long term (current) use of antithrombotics/antiplatelets; M51.369 Other intervertebral disc degeneration, lumbar region without mention of lumbar back pain or lower extremity pain; M47.816 Spondylosis without myelopathy or radiculopathy, lumbar region; W01.0XXA Fall on same level from slipping, tripping and stumbling without subsequent striking against object, initial encounter
CPT/HCPCS: 72100; 99282

== ENCOUNTER → 2024-10-15 | Outpatient (CLI) | payer MEDICARE, OTHER, SELFPAY ==
--- NOTE | 2024-10-15 09:06 | ADUL_ITS ---
Reason For Study: RLE cramping/pain Right Velocities Ext. Iliac Artery, dist = 91.2 cm./sec. Common Femoral Artery, mid = 100.8 cm./sec. Supf Femoral Artery, prox = 120.4 cm./sec. Supf Femoral Artery, mid = 65 cm./sec. Supf Femoral Artery, dist. = 34.9 cm./sec. Profunda Femoral Artery = 63.6 cm./sec. POP A Stent Noted Prox Stent - 46.2 cm/s Mid Stent - 47.1 cm/s Dist Stent - 50 cm/s Yvon, distal to stent, 59.4 cm/sec. T/P Trunk origin, 222.7 cm/sec. T/P Trunk prox, 161.3 cm/sec. T/P Trunk mid, 99.9 cm/sec. Post. Tibial Artery, prox = 206.6 cm./sec. Post. Tibial Artery, mid = 63.7 cm./sec. Post. Tibial Artery, dist = 50.2 cm./sec. Peroneal Artery, prox = 82.1 cm./sec. Peroneal Artery, mid = 120.5 cm./sec. Peroneal Artery,dist = 124.9 cm./sec. Ant. Tibial Artery, prox = 262.5 cm./sec. Ant. Tibial Artery, mid = 38.4 cm./sec. Ant. Tibial Artery, dist = 36.2 cm./sec. Procedure Exam performed in department. VL/US Art Duplex Unilat Lower Ext Interpretation Summary Right SFA/popliteal stent patent with normal velocities and no evidence of sten osis. >75% stenosis of tibioperoneal trunk origin, posterior tibial artery origin, an terior tibial artery origin Ordering Physician: Kailey Harper Referring Physician: Susy Teran Performed By: Tigist Hoyos RVT
--- NOTE | 2024-10-15 09:06 | ART_ITS ---
Reason For Study: RLE cramping/pain Procedure A bilateral lower extremity continuous wave Doppler with analog waveform analysis and ankle brachial indexes. Left Segmental Pressures Left brachial= 134mmHg. Left posterior tibial artery = 103mmHg. Left dorsalis pedis artery = 120mmHg. Left digit = 78 mmHg. The left dorsalis pedis waveforms are triphasic. The left posterior tibial artery waveforms are biphasic. Right Segmental Pressures Right brachial= 124mmHg. Right posterior tibial artery = 142mmHg. Right dorsalis pedis artery = 129mmHg. Right digit = 95 mmHg. The right dorsalis pedis waveforms are triphasic. The right posterior tibial artery waveforms are triphasic. Indices The right ankle brachial index by the dorsalis pedis is 0.96. The right ankle brachial index by the posterior tibial artery is 1.06. The right digital-brachial index is 0.71. The left ankle brachial index by the dorsalis pedis is 0.90. The left ankle brachial index by the posterior tibial artery is 0.77. The left digital-brachial index is 0.58. VL/Ankle Brachial Index Interpretation Summary Right KAREN 1.06, normal. Doppler/PVR waveforms of the right ankle normal at rest .TBI diminished, pedal/digit disease vs spasm. Left KARNE 0.9, mild arterial insufficiency. Doppler/PVR waveforms of the left an kle mildly diminished at rest. Ordering Physician: Kailey Harper Referring Physician: Susy Teran Performed By: Tigist Hoyos RVT and Student
== END | disposition home or self-care (01) ==
LOC: CVS 09:03
PROVIDERS: PCP Family Medicine; Referring Provider Physician Assistant; Visit Provider Physician Assistant
DX: Z48.812 Encounter for surgical aftercare following surgery on the circulatory system (principal); I70.201 Unspecified atherosclerosis of native arteries of extremities, right leg
CPT/HCPCS: 93922; 93926

== ENCOUNTER → 2024-11-13 | Outpatient (CLI) | payer MEDICARE, OTHER, SELFPAY ==
--- NOTE | 2024-11-13 12:01 | CT_ITS ---
CT HISTORY: Recurrent claudication s/p SFA/pop stent. TECHNIQUE: Axial CT angiography multi-detector data acquisition was obtained from the abdomen and pelvis to the bilateral lower extremities following intravenous administration of 100 mL Isovue-370. Axial images and MIP images were reconstructed from the axial data set. Post-processing of the angiographic images was performed, with multiplanar reformation and 3D reconstruction. Individualized dose optimization techniques were used for this CT. 1030 images. COMPARISON: 04/23/2024. Descriptors of Narrowing: None (0%) Mild (< 50%) Moderate (50-70%) Severe (70-90%) Subtotal/Total Occlusion (90-100%) Non-Evaluable (technically non-diagnostic) FINDINGS: LOWER CHEST: Lung bases clear. BOWEL: Mild hiatal hernia. Bowel including appendix nondilated. Colonic diverticulosis without pericolonic inflammatory change. Chronic rectal wall thickening. PERITONEUM: No significant ascites. LIVER: No enhancing mass. GALLBLADDER: Cholecystectomy. SPLEEN/PANCREAS: Homogeneous and nonenlarged. KIDNEYS/ADRENAL GLANDS: Unremarkable. PELVIC ORGANS: Unchanged mild enlargement of the prostate gland. OSSEOUS STRUCTURES: Degenerative change. Chronic mild left knee joint effusion. ABDOMINAL WALL: Fat-containing inguinal hernias. ABDOMINAL AORTA: No aneurysm or dissection. Very mild atherosclerosis. CELIAC AXIS/SUPERIOR MESENTERIC ARTERY: Mild calcified plaque at the origins without significant stenosis. RENAL ARTERIES: Mild calcified plaque at the origins of the single bilateral renal arteries without significant stenosis. INFERIOR MESENTERIC ARTERY: No occlusion. ILIAC ARTERIES: Minimal calcified plaque in the bilateral common iliac arteries without significant stenosis. Patent bilateral external iliac arteries. Calcified plaque in the bilateral internal iliac arteries. RIGHT FEMORAL ARTERIES: Very mild calcified plaque at the common and deep femoral arteries without significant stenosis. Very mild calcified plaque in the proximal superficial femoral artery without significant stenosis. Patent distal SFA stent. RIGHT POPLITEAL ARTERY: Patent femoral-popliteal stent. Mild less than 50% stenosis of the popliteal artery distal to the stent. RIGHT 3 VESSEL RUNOFF: Severe calcified plaque in the proximal anterior tibial artery with patency of the proximal artery on delayed images but short segment of occlusion mid to distally with reconstitution of flow at the ankle and flow followed into the foot. Atherosclerosis of the tibioperoneal trunk. Mild posterior tibial artery stenosis proximally, patent mid, and short segment occlusion distally with reconstitution of flow at the ankle with flow followed into the foot on delayed images. Calcified plaque in the proximal peroneal artery but patent with a collateral vessel reconstituting flow in the distal posterior tibial artery. LEFT FEMORAL ARTERIES: No significant stenosis of the common femoral artery. Mild stenosis extending to the origins of the deep and superficial femoral arteries. Mild less than 30% stenosis of the superficial femoral artery. LEFT POPLITEAL ARTERY: Mild less than 50% stenosis. LEFT 3 VESSEL RUNOFF: Calcified plaque in the proximal anterior tibial artery and patent past the ankle into the foot. Atherosclerosis of the tibioperoneal trunk. Patent posterior tibial and peroneal arteries. CT/CTA Abd w/Runoff W/WO Contrast IMPRESSION: Patent right femoral-popliteal stent. Short segment occlusions of the right mid anterior tibial, distal anterior tibial, and distal posterior tibial arteries with reconstitution of flow distally and patent three-vessel runoff in the ankle and foot. Patent three-vessel runoff in the left lower extremity. Chronic mild joint effusion of the left knee. Electronically Signed: Paola Coats MD at 12:28 EST ,
[2024-11-13 12:24] LABS: Absolute Lymphocyte Count 1.59 X10^3/uL (0.83-4.51); Absolute Neutrophil Count 5.4 X10^3/uL (2.0-7.7); Basophil# 0.09 X10^3/uL; Basophil% 1.1 % (0-1); Eosinophil# 0.12 X10^3/uL; Eosinophils% 1.5 % (0-5); Hematocrit 47.8 % (40-54); Hemoglobin 15.5 g/dL (13.0-16.5); Lymphocyte # 1.59 X10^3/ul (0.83-4.51); Lymphocyte % 19.8 % (19-41); Mean Corp Hgb Conc 32.4 g/dL (32-36); Mean Corpuscular Hgb 31.1 pg (27.0-32.0); Mean Corpuscular Volume 95.8 fL (80-94); Mean Platelet Vol. 9.8 fl (6.2-12.0); Monocyte# 0.69 X10^3/uL; Monocyte% 8.6 % (0-10); NRBC Flagged by Analyzer 0 % (0-5); Neutrophil # 5.44 X10^3/uL (2.7-7.7); Neutrophil % 67.8 % (47-70); Platelet Count 331 K/mm3 (150-450); RBC Distribution Width CV 11.9 % (11.6-14.6); RBC Distribution Width SD 41.8 fl (35.1-43.9); Red Blood Count 4.99 M/mm3 (4.6-6.2)
[2024-11-13 13:43] LABS: ALB/GLOB Ratio 1.2 RATIO (0.9-2.4); AST(SGOT) 13 U/L (15-37); Alanine Aminotransfer ALT/SGPT 23 U/L (16-61); Albumin, Serum 3.8 g/dL (3.2-5.0); Alkaline Phosphatase 131 U/L (45-117); Anion Gap 8 (5-15); BUN 16 mg/dL (7-18); BUN/Creat Ratio 11.7 RATIO (10-20); Chloride 106 mmol/L (98-107); Cholesterol 160 mg/dL (200); Creatinine, Serum 1.37 mg/dL (0.70-1.30); EST Glomerular Filtration Rate 54 mL/min (>60); Est Glom Filt Rate - Afr Amer 65 mL/min (>60); Globulin 3.3 g/dL (2.2-4.2); Glucose 102 mg/dL (74-106); High Density Lipoprotein 48 mg/dL; Potassium 4.2 mmol/L (3.5-5.1); Protein, Total 7.1 g/dL (6.4-8.2); Sodium Level 140 mmol/L (136-145); Triglycerides 130 mg/dL; Very Low Density Lipoprotein 26 mg/dL (5-40)
== END | disposition home or self-care (01) ==
LOC: CT 11:49
PROVIDERS: PCP Family Medicine; Referring Provider Physician Assistant; Visit Provider Physician Assistant
DX: I10 Essential (primary) hypertension (principal); E78.5 Hyperlipidemia, unspecified; Z51.81 Encounter for therapeutic drug level monitoring
CPT/HCPCS: 36415; 75635; 80053; 80061; 84443; 85025; Q9967

== ENCOUNTER → 2024-12-16 | Outpatient (CLI) | payer MEDICARE, OTHER, SELFPAY ==
[2024-12-16 15:14] LABS: Absolute Neutrophil Count 5.4 X10^3/uL (2.0-7.7); Basophil# 0.11 X10^3/uL; Basophil% 1.4 % (0-1); Eosinophil# 0.12 X10^3/uL; Eosinophils% 1.5 % (0-5); Hematocrit 50.8 % (40-54); Hemoglobin 16.7 g/dL (13.0-16.5); Lymphocyte % 18.7 % (19-41); Mean Corp Hgb Conc 32.9 g/dL (32-36); Mean Corpuscular Hgb 32.1 pg (27.0-32.0); Mean Corpuscular Volume 97.7 fL (80-94); Mean Platelet Vol. 10.2 fl (6.2-12.0); Monocyte# 0.73 X10^3/uL; Monocyte% 9.1 % (0-10); NRBC Flagged by Analyzer 0 % (0-5); Neutrophil # 5.43 X10^3/uL (2.7-7.7); Neutrophil % 67.7 % (47-70); Platelet Count 357 K/mm3 (150-450); RBC Distribution Width CV 11.6 % (11.6-14.6)
[2024-12-16 16:06] LABS: International Normalized Ratio 1.1; Prothrombin Time (Protime)PT. 14.7 SECONDS (11.7-14.9)
[2024-12-16 19:09] LABS: ALB/GLOB Ratio 1.1 RATIO (0.9-2.4); AST(SGOT) 13 U/L (15-37); Alanine Aminotransfer ALT/SGPT 24 U/L (16-61); Alkaline Phosphatase 133 U/L (45-117); Anion Gap 5 (5-15); BUN 20 mg/dL (7-18); BUN/Creat Ratio 14.9 RATIO (10-20); Calcium,Total 9.8 mg/dL (8.5-10.1); Chloride 107 mmol/L (98-107); Creatinine, Serum 1.34 mg/dL (0.70-1.30); EST Glomerular Filtration Rate 55 mL/min (>60); Est Glom Filt Rate - Afr Amer 67 mL/min (>60); Globulin 3.6 g/dL (2.2-4.2); Glucose 105 mg/dL (74-106); Potassium 4.5 mmol/L (3.5-5.1); Protein, Total 7.6 g/dL (6.4-8.2); Sodium Level 140 mmol/L (136-145)
== END | disposition home or self-care (01) ==
LOC: BFHLAB 11:58
PROVIDERS: PCP Family Medicine; Visit Provider Family Medicine
DX: T14.8XXA Other injury of unspecified body region, initial encounter (principal); R58 Hemorrhage, not elsewhere classified; Z51.81 Encounter for therapeutic drug level monitoring; X58.XXXA Exposure to other specified factors, initial encounter
CPT/HCPCS: 36415; 80053; 85025; 85610

== ENCOUNTER → 2025-02-17 | Outpatient (CLI) | payer MEDICARE, OTHER, SELFPAY ==
--- NOTE | 2025-02-17 12:55 | ART_ITS ---
Reason For Study Reason For Study: RLE Pain Procedure A bilateral lower extremity continuous wave Doppler with analog waveform analysis and ankle brachial indexes. Left Segmental Pressures Left brachial= 154mmHg. Left posterior tibial artery = 134mmHg. Left dorsalis pedis artery = 142mmHg. Left digit = 113 mmHg. Right Segmental Pressures Right brachial= 149mmHg. Right posterior tibial artery = 150mmHg. Right dorsalis pedis artery = 155mmHg. Right digit = 126 mmHg. Indices The right ankle brachial index by the posterior tibial artery is 0.97. The right ankle brachial index by the dorsalis pedis is 1.01. The right digital-brachial index is 0.82. The left ankle brachial index by the posterior tibial artery is 0.87. The left ankle brachial index by the dorsalis pedis is 0.92. The left digital-brachial index is 0.73. VL/Ankle Brachial Index Interpretation Summary Right KAREN 1.01, normal. TBI and Doppler/PVR waveforms of the right ankle normal at rest. Left KAREN 0.92, mild arterial insufficiency. Doppler/PVR waveforms of the left a nkle normal at rest. Ordering Physician: Kailey Harper Referring Physician: Susy Teran Performed By: Elvira Morley RDCS/RVT
== END | disposition home or self-care (01) ==
LOC: CVS 12:54
PROVIDERS: PCP Family Medicine; Referring Provider Physician Assistant; Visit Provider Physician Assistant
DX: Z48.812 Encounter for surgical aftercare following surgery on the circulatory system (principal); I73.9 Peripheral vascular disease, unspecified
CPT/HCPCS: 93922

== ENCOUNTER → 2025-05-14 | Outpatient (CLI) | payer MEDICARE, OTHER, SELFPAY ==
--- NOTE | 2025-05-14 13:57 | ART_ITS ---
Reason For Study Reason For Study: S/P Rt POP A Stent / Atherectomy Procedure A bilateral lower extremity continuous wave Doppler with analog waveform analysis and ankle brachial indexes. Left Segmental Pressures Left brachial= 140mmHg. Left posterior tibial artery = 163mmHg. Left dorsalis pedis artery = 150mmHg. Left digit = 109 mmHg. The left posterior tibial artery waveforms are triphasic. The left dorsalis pedis waveforms are triphasic. Right Segmental Pressures Right brachial= 136mmHg. Right posterior tibial artery = 182mmHg. Right dorsalis pedis artery = 180mmHg. Right digit = 0.86 mmHg. The right posterior tibial artery waveforms are triphasic. The right dorsalis pedis waveforms are triphasic. Indices The right ankle brachial index by the posterior tibial artery is 1.30. The right ankle brachial index by the dorsalis pedis is 1.29. The right digital-brachial index is 0.86. The left ankle brachial index by the posterior tibial artery is 1.16. The left ankle brachial index by the dorsalis pedis is 1.07. The left digital-brachial index is 0.78. VL/Ankle Brachial Index Interpretation Summary Right KAREN 1.3, normal. TBI and Doppler/PVR waveforms of the right ankle normal at rest. Left KAREN 1.16, normal. TBI and Doppler/PVR waveforms of the left ankle normal a t rest. Ordering Physician: Kailey Harper Referring Physician: Susy Teran Performed By: Real Garcia RVJass
--- NOTE | 2025-05-14 13:57 | ADUL_ITS ---
Reason For Study Reason For Study: S/P Rt POP A Stent / Atherectomy Right Velocities Ext. Iliac Artery, dist = 93.1 cm./sec. Common Femoral Artery, mid = 78.4 cm./sec. Profunda Femoral Artery = 71.1 cm./sec. Supf Femoral Artery, prox = 116.7 cm./sec. Supf Femoral Artery, mid = 89.3 cm./sec. Pre Stent / SFA Dist - 46.2 cm/s POP A Stent Noted Prox Stent - 49.7 cm/s Mid Stent - 74.3 cm/s Dist Stent - 70.5 cm/s TP Trunk/ [employer]IST Origin Post Stent - 231.4 cm/s. Post. Tibial Artery, prox = 111.8 cm./sec. Post. Tibial Artery, mid = 52.3 cm./sec. Post. Tibial Artery, dist = 52.3 cm./sec. Peroneal Artery, prox = 83.1 cm./sec. Peroneal Artery, mid = 138.1 cm./sec. Peroneal Artery,dist = 143.6 cm./sec. Ant. Tibial Artery, prox = 284.8 cm./sec. Ant. Tibial Artery, mid = 88.7 cm./sec. Ant. Tibial Artery, dist = 30.3 cm./sec. Procedure The exam was diagnostic. VL/US Art Duplex Unilat Lower Ext Interpretation Summary Right SFA/popliteal stent patent with normal velocities and no evidence of sten osis. >75% stenosis of tibioperoneal trunk origin, anterior tibial artery origin Ordering Physician: Kailey Harper Referring Physician: Susy Teran Performed By: Real Garcia RVT
== END | disposition home or self-care (01) ==
LOC: CVS 13:56
PROVIDERS: PCP Family Medicine; Referring Provider Physician Assistant; Visit Provider Physician Assistant
DX: Z48.812 Encounter for surgical aftercare following surgery on the circulatory system (principal)
CPT/HCPCS: 93922; 93926

== ENCOUNTER → 2025-07-28 | Outpatient (CLI) | payer MEDICARE, OTHER, SELFPAY ==
--- NOTE | 2025-07-28 14:04 | MRI_ITS ---
PROCEDURE: SPINE LUMBAR (ROUTINE) 07/28/2025 REASON FOR EXAM: COMPRESSION FRACTURE OF LUMBAR VERTEBRA TECHNIQUE: Procedure Code: MRISPL Modality: MR Procedure: SPINE LUMBAR (ROUTINE) FINDINGS: Normal lordosis. Conus exhibits normal position, contour, and signal intensity. Benign 30% anterior compression along the superior endplate of L1. Marrow signal intensity appears otherwise normal. Levoscoliosis. Sigmoid colonic diverticula. T12-L1: Small disc bulge. L1-2: Small disc bulge. Bilateral facet arthrosis. L2-3: Disc bulge. Bilateral facet arthrosis. [id number] spinal stenosis. Mild bilateral foraminal stenosis. L3-4: Broad-based disc protrusion. Bilateral facet arthrosis. Severe spinal stenosis. Moderate bilateral foraminal stenosis with mild effacement of the L3 roots. L4-5: Grade 1 anterolisthesis. Broad-based disc bulge. No L4 pars defect. Severe bilateral facet arthrosis and ligamentum flavum hypertrophy. Severe spinal stenosis. Mild bilateral foraminal stenosis. L5-S1: Grade 1 anterolisthesis. No L5 pars defect. Disc bulge. Bilateral facet arthrosis. Mild bilateral foraminal stenosis. No other significant disc bulge or herniation is identified. Remaining intervertebral foramina and spinal canal appear adequately patent. Surrounding soft tissues appear otherwise unremarkable. MRI/Spine Lumbar (Routine) IMPRESSION: Severe spinal stenoses at L3-5. Foraminal stenoses at L2-S1. Foraminal effacement of the L3 nerve roots. Anterolisthesis at L4-S1 without pars defects. Spondylosis, levoscoliosis, disc bulging and protrusion. 30% benign anterior compression along the superior endplate of L1. Sigmoid colonic diverticula. Reading Location: [id number]
== END | disposition home or self-care (01) ==
LOC: MRI 13:54
PROVIDERS: PCP Family Medicine
DX: S32.000A Wedge compression fracture of unspecified lumbar vertebra, initial encounter for closed fracture (principal); M43.16 Spondylolisthesis, lumbar region; X58.XXXA Exposure to other specified factors, initial encounter
CPT/HCPCS: 72148